=== PATIENT | male | born 1985 | race Two or more races ===

== ENCOUNTER 2020-01-15 07:38 | Day surgery (SDC) | payer BC ==
[~2020-01-15 07:38] MED LIST: Lactated Ringers 1,000 ML IV SCH; Sodium Chloride 0.9% 10 ML Syringe FLUSH PRN
[2020-01-15] MEDS ORDERED: Midazolam 1 MG/ML 2 ML SDV IV ONE (07:39)
[2020-01-15] MEDS ORDERED: Propofol 200 MG/20 ML SDV IV ONE (07:39)
--- NOTE | 2020-01-15 09:21 | PCM.OPNOTE ---
- General Post-Op/Procedure Note Date of Surgery/Procedure: 01/15/20 Operative Procedure(s): c scope with biopsy Findings: diverticuli of ascending colon normal terminal ileum and colon Pre Op Diagnosis: diarrhea. unexplained weight loss Post-Op Diagnosis: diverticuli of ascending colon. normal terminal ileum and colon Anesthesia Technique: MAC Primary Surgeon: Teofilo Brannon Anesthesia Provider: Angela Kothari Pathology: random biopsies colon, ileum Complications: None Condition: Good Free Text/Narrative:: see dictation
--- NOTE | 2020-01-15 14:48 | OR ---
DATE OF OPERATION: 01/15/2020 SURGEON: Teofilo Brannon MD PROCEDURE PERFORMED: Colonoscopy with cold forceps biopsy. PREOPERATIVE DIAGNOSES: History of diabetes, as well as diarrhea with unexplained weight loss. POSTOPERATIVE DIAGNOSES: Diverticula of the ascending colon and normal- appearing terminal ileum and colonic mucosa. INDICATIONS FOR PROCEDURE: This is a 34-year-old male who presented with the above-mentioned complaints. He was offered and accepted a colonoscopy as part of his workup. DESCRIPTION OF PROCEDURE: After an excellent IV sedation was administered, digital rectal exam was performed. No marked abnormality was noted. Flexible colonoscope was inserted and advanced without difficulty to the cecum. The prep was excellent. The terminal ileum was then intubated. Scope was advanced approximately 10 cm. Following findings were noted. The terminal ileum grossly unremarkable, random biopsies were taken. The ascending colon, unremarkable, except for 2 diverticula, photo and random biopsies were taken. Transverse colon, unremarkable, random biopsies were taken. Descending colon, unremarkable, random biopsies were taken. Sigmoid and rectum, unremarkable, random biopsies were taken. The patient tolerated the procedure well, was taken to recovery room in good condition. We will be sending the patient results by letter. /[id number] /MODL
== END 2020-01-15 10:10 | disposition home or self-care (01) ==
LOC: FB.SDS 07:38
PROVIDERS: ATTEND Surgery
DX: K57.30 Diverticulosis of large intestine without perforation or abscess without bleeding (principal); D64.9 Anemia, unspecified; R19.7 Diarrhea, unspecified; R63.4 Abnormal weight loss; I10 Essential (primary) hypertension; E11.9 Type 2 diabetes mellitus without complications; F17.210 Nicotine dependence, cigarettes, uncomplicated; Z11.59 Encounter for screening for other viral diseases; Z79.4 Long term (current) use of insulin; Z79.899 Other long term (current) drug therapy; Z68.22 Body mass index [BMI] 22.0-22.9, adult
CPT/HCPCS: 45380; 88305; J2250; J2704; J7120; 82962

== ENCOUNTER 2020-07-28 12:49 | Emergency (ER) | payer BC ==
[2020-07-28] MEDS ORDERED: Sodium Chloride 0.9% 10 ML Syringe FLUSH PRN (13:02)
[2020-07-28] MEDS ORDERED: Insulin Regular, Human 100 Units/ML 3 ML Vial SUBCUT STA (13:05)
[2020-07-28] MEDS ORDERED: Sodium Chloride 0.9% 2,000 ML IV SCH (13:15)
[2020-07-28 13:47] LABS: BASE EXCESS VENOUS,POC 1 mmol/L (-2-3); HCO3 VENOUS,POC 24 mmol/L (21-29); PCO2 VENOUS,POC 34 mmHg (41-51); PH VENOUS,POC 7.47 pH Units (7.32-7.43)
[2020-07-28] MEDS ORDERED: Ondansetron 4 MG/2 ML SDV IVPUSH ONE (13:47)
[2020-07-28] MEDS ORDERED: Albuterol/Ipratropium 3.0-0.5 MG/3 ML Neb Soln NEB ONE (14:17)
--- NOTE | 2020-07-28 14:17 | EDM.PDOC ---
ED HPI GENERAL MEDICAL PROBLEM - General Chief Complaint: General Stated Complaint: COVID SYMPTOMS Time Seen by Provider: 07/28/20 12:55 Source of Information: Reports: Patient History Limitations: Reports: No Limitations - History of Present Illness INITIAL COMMENTS - FREE TEXT/NARRATIVE: Patient presented to the ED because of weakness, dizziness, dyspnea for 4 days. There is N/V/D x2. Denies having any fever but he has chills. He was tested in the clinic and was Covid-negative. - Related Data Allergies Allergy/AdvReac Type Severity Reaction Status Date / Time No Known Allergies Allergy Verified 07/28/20 15:29 Home Meds: Home Meds Amitriptyline [Elavil] 50 mg PO BEDTIME 01/14/20 [History] metFORMIN [Glucophage] 1,000 mg PO BIDMEALS 01/14/20 [History] Ondansetron [Zofran ODT] 4 mg PO Q4H PRN #5 tab.dis 07/28/20 [Rx] Potassium Chloride [Klor-Con M20] 40 meq PO Q2H #6 tab.er 07/28/20 [Rx] Past Medical History HEENT History: Reports: None Cardiovascular History: Reports: High Cholesterol, Hypertension Respiratory History: Reports: Asthma Gastrointestinal History: Reports: None Genitourinary History: Reports: None 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 Musculoskeletal History: Reports: None Neurological History: Reports: None Psychiatric History: Reports: None Endocrine/Metabolic History: Reports: Diabetes, Type II Hematologic History: Reports: None Immunologic History: Reports: None Oncologic (Cancer) History: Reports: None Dermatologic History: Reports: None - Past Surgical History Head Surgeries/Procedures: Reports: None HEENT Surgical History: Reports: None Cardiovascular Surgical History: Reports: None Respiratory Surgical History: Reports: None GI Surgical History: Reports: None Female Surgical History: Reports: None Social & Family History - Caffeine Use Caffeine Use: Reports: Coffee, Soda, Tea ED ROS GENERAL - Review of Systems Review Of Systems: See Below Constitutional: Reports: No Symptoms HEENT: Reports: No Symptoms Respiratory: Reports: Shortness of Breath, Wheezing Cardiovascular: Reports: No Symptoms Endocrine: Reports: No Symptoms GI/Abdominal: Reports: Diarrhea, Nausea, Vomiting : Reports: No Symptoms Skin: Reports: No Symptoms Neurological: Reports: Dizziness Psychiatric: Reports: No Symptoms ED EXAM, GENERAL - Physical Exam Exam: See Below Exam Limited By: No Limitations General Appearance: Alert, No Apparent Distress Eye Exam: Bilateral Eye: PERRL Ears: Normal External Exam, Normal Canal Nose: Normal Inspection, Normal Mucosa, No Blood Throat/Mouth: Normal Inspection, Normal Lips, Normal Teeth Head: Atraumatic, Normocephalic Neck: Normal Inspection, Supple, Non-Tender, Full Range of Motion Respiratory/Chest: No Respiratory Distress, Wheezing Cardiovascular: Normal Peripheral Pulses, Regular Rate, Rhythm, No Edema GI/Abdominal: Normal Bowel Sounds, Soft, Non-Tender Back Exam: Normal Inspection, Full Range of Motion Course - Vital Signs Text/Narrative:: Labs/CXR was discussed with patient NS 1 L bolus X 2 Zofran 4 mg IV Humulin 20 U SC Klor con 40 meq po x1 Last Recorded V/S: Last Vital Signs Temp 36.5 C 07/28/20 12:49 Pulse 95 07/28/20 14:39 Resp 16 07/28/20 14:39 BP 96/61 07/28/20 14:39 Pulse Ox 100 07/28/20 14:39 - Orders/Labs/Meds Orders: Active Orders 24 hr Category Date Time Status Saline Lock Insert [OM.PC] Routine Oth 07/28/20 13:02 Ordered EKG 12 Lead [EK] Routine Ther 07/28/20 13:02 Ordered Labs: Laboratory Tests 07/28/20 07/28/20 07/28/20 Range/Units 13:20 13:20 13:20 WBC 10.7 H (3.2-10.1) x10-3/uL RBC 4.79 (3.90-5.90) x10(6)uL Hgb 14.8 (12.9-17.7) g/dL Hct 43.5 (38.3-50.1) % MCV 90.9 (80.8-98.7) fL MCH 30.9 (27.0-33.3) pg MCHC 34.0 (28.7-35.3) g/dL RDW 12.5 (12.4-15.0) % Plt Count 340 (117-477) x10(3)uL MPV 8.1 (6.7-11.0) fL Neut % (Auto) 69.6 (40.3-71.8) % Lymph % (Auto) 25.0 (15.8-45.3) % Haakon % (Auto) 4.1 L (5.5-15.2) % Eos % (Auto) 0.6 (0.1-6.8) % Baso % (Auto) 0.7 (0.3-3.8) % Neut # (Auto) 7.4 H (1.7-6.9) x10-3/uL Lymph # (Auto) 2.7 (0.5-4.5) x10-3/uL Haakon # (Auto) 0.4 (0.0-1.2) x10-3/uL Eos # (Auto) 0.1 (0.0-0.6) x10-3/uL Baso # (Auto) 0.1 (0.0-0.3) x10-3/uL POC VBG pH (7.32-7.43) pH Units POC VBG pCO2 (41-51) mmHg POC VBG HCO3 (21-29) mmol/L VBG Base Excess (-2-3) mmol/L O2 Delivery Device Sodium 129 L (135-145) mmol/L Potassium 3.1 L (3.5-5.3) mmol/L Chloride 88 L* (100-110) mmol/L Carbon Dioxide 27 (21-32) mmol/L BUN 9 (7-18) mg/dL Creatinine 1.1 (0.70-1.30) mg/dL Est Cr Clr Drug Dosing 90.46 mL/min Estimated GFR (MDRD) > 60 (>60) BUN/Creatinine Ratio 8.2 L (9-20) Glucose 551 H* (80-116) mg/dL POC Glucose (74-100) mg/dL Lactic Acid (0.4-2.0) mmol/L Calcium 9.0 (8.6-10.2) mg/dL Total Bilirubin 0.7 (0.1-1.3) mg/dL AST 12 (5-25) IU/L ALT 20 (12-36) U/L Alkaline Phosphatase 104 (56-112) IU/L Troponin I 4.3 (4.0-60.3) pg/mL Total Protein 7.9 (6.0-8.0) g/dL Albumin 3.6 (3.5-5.2) g/dL Globulin 4.3 g/dL Albumin/Globulin Ratio 0.8 Urine Color (YELLOW) Urine Appearance (CLEAR) Urine pH (5.0-6.5) Ur Specific [place] (1.010-1.025) Urine Protein (NEGATIVE) mg/dL Urine Glucose (UA) (NORMAL) mg/dL Urine Ketones (NEGATIVE) mg/dL Urine Occult Blood (NEGATIVE) Urine Nitrite (NEGATIVE) Urine Bilirubin (NEGATIVE) Urine Urobilinogen (NEGATIVE) mg/dL Ur Leukocyte Esterase (NEGATIVE) Urine RBC (0-5) Urine WBC (0-5) Ur Squamous Epith Cells (NS,R,O) Urine Bacteria (NS) 07/28/20 07/28/20 07/28/20 Range/Units 13:20 13:20 13:30 WBC (3.2-10.1) x10-3/uL RBC (3.90-5.90) x10(6)uL Hgb (12.9-17.7) g/dL Hct (38.3-50.1) % MCV (80.8-98.7) fL MCH (27.0-33.3) pg MCHC (28.7-35.3) g/dL RDW (12.4-15.0) % Plt Count (117-477) x10(3)uL MPV (6.7-11.0) fL Neut % (Auto) (40.3-71.8) % Lymph % (Auto) (15.8-45.3) % Haakon % (Auto) (5.5-15.2) % Eos % (Auto) (0.1-6.8) % Baso % (Auto) (0.3-3.8) % Neut # (Auto) (1.7-6.9) x10-3/uL Lymph # (Auto) (0.5-4.5) x10-3/uL Haakon # (Auto) (0.0-1.2) x10-3/uL Eos # (Auto) (0.0-0.6) x10-3/uL Baso # (Auto) (0.0-0.3) x10-3/uL POC VBG pH 7.47 H (7.32-7.43) pH Units POC VBG pCO2 34 L (41-51) mmHg POC VBG HCO3 24 (21-29) mmol/L VBG Base Excess 1 (-2-3) mmol/L O2 Delivery Device Room air Sodium (135-145) mmol/L Potassium (3.5-5.3) mmol/L Chloride (100-110) mmol/L Carbon Dioxide (21-32) mmol/L BUN (7-18) mg/dL Creatinine (0.70-1.30) mg/dL Est Cr Clr Drug Dosing mL/min Estimated GFR (MDRD) (>60) BUN/Creatinine Ratio (9-20) Glucose (80-116) mg/dL POC Glucose (74-100) mg/dL Lactic Acid 1.8 (0.4-2.0) mmol/L Calcium (8.6-10.2) mg/dL Total Bilirubin (0.1-1.3) mg/dL AST (5-25) IU/L ALT (12-36) U/L Alkaline Phosphatase (56-112) IU/L Troponin I (4.0-60.3) pg/mL Total Protein (6.0-8.0) g/dL Albumin (3.5-5.2) g/dL Globulin g/dL Albumin/Globulin Ratio Urine Color Yellow (YELLOW) Urine Appearance Clear (CLEAR) Urine pH 5.0 (5.0-6.5) Ur Specific [place] 1.005 L (1.010-1.025) Urine Protein Negative (NEGATIVE) mg/dL Urine Glucose (UA) >1000 H (NORMAL) mg/dL Urine Ketones 15 H (NEGATIVE) mg/dL Urine Occult Blood Negative (NEGATIVE) Urine Nitrite Negative (NEGATIVE) Urine Bilirubin Negative (NEGATIVE) Urine Urobilinogen Normal (NEGATIVE) mg/dL Ur Leukocyte Esterase Negative (NEGATIVE) Urine RBC 0-5 (0-5) Urine WBC 0-5 (0-5) Ur Squamous Epith Cells Moderate H (NS,R,O) Urine Bacteria Few H (NS) 07/28/20 Range/Units 16:10 WBC (3.2-10.1) x10-3/uL RBC (3.90-5.90) x10(6)uL Hgb (12.9-17.7) g/dL Hct (38.3-50.1) % MCV (80.8-98.7) fL MCH (27.0-33.3) pg MCHC (28.7-35.3) g/dL RDW (12.4-15.0) % Plt Count (117-477) x10(3)uL MPV (6.7-11.0) fL Neut % (Auto) (40.3-71.8) % Lymph % (Auto) (15.8-45.3) % Haakon % (Auto) (5.5-15.2) % Eos % (Auto) (0.1-6.8) % Baso % (Auto) (0.3-3.8) % Neut # (Auto) (1.7-6.9) x10-3/uL Lymph # (Auto) (0.5-4.5) x10-3/uL Haakon # (Auto) (0.0-1.2) x10-3/uL Eos # (Auto) (0.0-0.6) x10-3/uL Baso # (Auto) (0.0-0.3) x10-3/uL POC VBG pH (7.32-7.43) pH Units POC VBG pCO2 (41-51) mmHg POC VBG HCO3 (21-29) mmol/L VBG Base Excess (-2-3) mmol/L O2 Delivery Device Sodium (135-145) mmol/L Potassium (3.5-5.3) mmol/L Chloride (100-110) mmol/L Carbon Dioxide (21-32) mmol/L BUN (7-18) mg/dL Creatinine (0.70-1.30) mg/dL Est Cr Clr Drug Dosing mL/min Estimated GFR (MDRD) (>60) BUN/Creatinine Ratio (9-20) Glucose (80-116) mg/dL POC Glucose 272 H (74-100) mg/dL Lactic Acid (0.4-2.0) mmol/L Calcium (8.6-10.2) mg/dL Total Bilirubin (0.1-1.3) mg/dL AST (5-25) IU/L ALT (12-36) U/L Alkaline Phosphatase (56-112) IU/L Troponin I (4.0-60.3) pg/mL Total Protein (6.0-8.0) g/dL Albumin (3.5-5.2) g/dL Globulin g/dL Albumin/Globulin Ratio Urine Color (YELLOW) Urine Appearance (CLEAR) Urine pH (5.0-6.5) Ur Specific [place] (1.010-1.025) Urine Protein (NEGATIVE) mg/dL Urine Glucose (UA) (NORMAL) mg/dL Urine Ketones (NEGATIVE) mg/dL Urine Occult Blood (NEGATIVE) Urine Nitrite (NEGATIVE) Urine Bilirubin (NEGATIVE) Urine Urobilinogen (NEGATIVE) mg/dL Ur Leukocyte Esterase (NEGATIVE) Urine RBC (0-5) Urine WBC (0-5) Ur Squamous Epith Cells (NS,R,O) Urine Bacteria (NS) Meds: Medications Discontinued Medications Generic Name Dose Route Start Last Admin Trade Name Freq PRN Reason Stop Dose Admin Albuterol/Ipratropium 3 ml 07/28/20 14:17 07/28/20 14:29 Duoneb 3.0-0.5 Mg/3 Ml NEB 07/28/20 14:18 3 ml ONETIME ONE Administration Sodium Chloride 2,000 mls @ 999 mls/hr 07/28/20 13:15 07/28/20 13:37 Normal Saline IV 999 mls/hr ASDIRECTED KAMRAN Administration Insulin Human Regular 20 unit 07/28/20 13:05 07/28/20 14:07 Humulin R SUBCUT 07/28/20 13:06 20 units NOW STA Administration Ondansetron HCl 4 mg 07/28/20 13:47 07/28/20 14:11 Zofran IVPUSH 07/28/20 13:48 4 mg ONETIME ONE Administration Potassium Chloride 40 meq 07/28/20 16:24 07/28/20 17:07 Klor-Con M20 PO 07/28/20 16:25 40 meq ONETIME ONE Administration Sodium Chloride 10 ml 07/28/20 13:02 Saline Flush FLUSH ASDIRECTED PRN Keep Vein Open Departure - Departure Time of Disposition: 17:00 Disposition: Home, Self-Care 01 Condition: Good Clinical Impression: Hypokalemia - Discharge Information Prescriptions: Potassium Chloride [Klor-Con M20] 40 meq PO Q2H #6 tab.er Ondansetron [Zofran ODT] 4 mg PO Q4H PRN #5 tab.dis PRN Reason: Nausea Instructions: Viral Gastroenteritis, Adult, Hyperglycemia Referrals: Yennifer Marino ASSEMBLED WO[employer]ODU[employer] REPAIRER [Primary Care Provider] - Forms: ED Department Discharge Additional Instructions: Please read discharge instructions on hypokalemia(low potassium), gastroenteritis(stomach flu) and high blood sugar Increase oral fluids Frequent hand washing You can take imodium 2 tablets every 6 hours as needed for diarrhea (imodium is over the counter) Zofran ODT 4 mg every 4 hours as needed for nausea Follow up as needed - My Orders Last 24 Hours: My Active Orders 07/28/20 13:02 Saline Lock Insert [OM.PC] Routine EKG 12 Lead [EK] Routine - Assessment/Plan Last 24 Hours: My Active Orders 07/28/20 13:02 Saline Lock Insert [OM.PC] Routine EKG 12 Lead [EK] Routine
--- NOTE | 2020-07-28 15:10 | CR ---
INDICATION: Cough. CHEST ONE VIEW: AP portable AP view of the chest, 07/28/2020 was compared with 10/07/2016 and revealed pulmonary markings similar to the previous examination without a definite active infiltrate or effusion. The heart, mediastinum and bony thorax are unremarkable. IMPRESSION: Stable chest-no acute process. MTDD
[2020-07-28] MEDS ORDERED: Potassium Chloride 20 MEQ Tab.ER PO ONE (16:24)
== END 2020-07-28 17:25 | disposition home or self-care (01) ==
LOC: FB.ED 12:49
DX: E87.6 Hypokalemia (principal); I10 Essential (primary) hypertension; E11.9 Type 2 diabetes mellitus without complications; J45.909 Unspecified asthma, uncomplicated; Z79.84 Long term (current) use of oral hypoglycemic drugs; Z79.899 Other long term (current) drug therapy
CPT/HCPCS: 36415; 71045; 80053; 81001; 82962; 83605; 84484; 85025; 93005; 94640; 96374; 99284; 99285-25; A9270-GY; J1815-GY; J2405; J7030; J7620-GY

== ENCOUNTER 2021-02-16 18:07 | Inpatient (IN) | payer MEDICAID ==
[2021-02-16] MEDS ORDERED: Promethazine 25 MG Tab PO PRN (18:36)
[2021-02-16] MEDS ORDERED: Ondansetron 4 MG/2 ML SDV IV PRN (18:36)
[2021-02-16] MEDS ORDERED: 50% Dextrose in Water 50 ML Syringe IVPUSH PRN ×3 (18:45→21:36)
[2021-02-16] MEDS ORDERED: Glucagon,Human Recombinant 1 MG Vial IM PRN ×3 (18:45→21:36)
[2021-02-16] MEDS: NS + KCl 20mEq/L 1,000 ML IV SCH (19:13)
[2021-02-16] MEDS: Sodium Chloride 0.9% 10 ML Syringe FLUSH PRN ×2 (19:16→20:20)
[2021-02-16 19:32] LABS: HCO3 VENOUS,POC 26 mmol/L (21-29); PCO2 VENOUS,POC 28 mmHg (41-51); PH VENOUS,POC 7.58 pH Units (7.32-7.43)
[2021-02-16 19:33] LABS: BASE EXCESS VENOUS,POC 5 mmol/L (-2-3)
--- NOTE | 2021-02-16 19:34 | PCM.HP.2 ---
H&P History of Present Illness - General Date of Service: 02/16/21 Admit Problem/Dx: Admission Diagnosis/Problem Admission Diagnosis/Problem Hyperglycemia Source of Information: Patient, Family, Provider - History of Present Illness Initial Comments - Free Text/Narative: Mookie presented for direct admission for hyperglycemia, blood sugar of 915 at [facility]. He had a syncopal episode on 02/04, had set his alarm to get up at 8am, went and got water and passed out and when he woke up asked [employer] what time it was 840am. He did not go to get evaluated at that time. He states that he has no appetite, when he forces himself to eat then he vomits. Has chronic diarrhea, had colonoscopy 12/2019 but normal. He has not taken his Metformin for a long time. HgbA1c at clinic has been >14 since 04/2020. He had normal kidney function prior to today, Cr in clinic was 2.36, Na 121, corrected for blood sugars was 124, CO2 was normal. They were not able to get UA. Blood pressure in clinic was 98/58, Temp 96.8F, he has lost about 40 lbs since last year unintentional. History of urinary retention with overactive bladder, saw Dr Davis, was straight catheterizing at home but then started being able to urinate on his own about a month ago. He has had multiple no shows with Dr Davis. He also reports he has been having more overflow incontinence in the past month. He smokes 1 ppd of cigarettes. No history of surgeries. He states he drinks about a gallon of water a day. - Related Data Allergies/Adverse Reactions: Allergies Allergy/AdvReac Type Severity Reaction Status Date / Time No Known Allergies Allergy Verified 02/16/21 18:46 Home Medications: Home Meds Amitriptyline [Elavil] 50 mg PO BEDTIME 01/14/20 [History] metFORMIN [Glucophage] 1,000 mg PO BIDMEALS 01/14/20 [History] Ondansetron [Zofran ODT] 4 mg PO Q4H PRN #5 tab.dis 07/28/20 [Rx] Potassium Chloride [Klor-Con M20] 40 meq PO Q2H #6 tab.er 07/28/20 [Rx] Citalopram [Citalopram HBr] 20 mg PO DAILY 02/16/21 [History] Insulin Glarg,Human.Rec.Analog [Lantus Solostar] 40 unit SUBCUT BEDTIME 02/16/21 [History] Insulin Lispro [HumaLOG] 5 unit SUBCUT TID 02/16/21 [History] Past Medical History HEENT History: Reports: Impaired Vision, Other (See Below) Other HEENT History: Regular astigmatism OU. Hyperopia OU. Cardiovascular History: Reports: High Cholesterol, Hypertension Respiratory History: Reports: Asthma Gastrointestinal History: Reports: None Genitourinary History: Reports: None, Retention, Urinary, Other (See Below) Other Genitourinary History: Uses straight catheter per self - in the ER 07/28/2020. Bilateral hydronephrosis. KHAI. 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 Musculoskeletal History: Reports: None Neurological History: Reports: None Psychiatric History: Reports: None Endocrine/Metabolic History: Reports: Diabetes, Type II Hematologic History: Reports: None Immunologic History: Reports: None Oncologic (Cancer) History: Reports: None Dermatologic History: Reports: None - Past Surgical History Head Surgeries/Procedures: Reports: None HEENT Surgical History: Reports: None Cardiovascular Surgical History: Reports: None Respiratory Surgical History: Reports: None GI Surgical History: Reports: None Social & Family History - Family History Family Medical History: No Pertinent Family History - Tobacco Use Tobacco Use Status *Q: Heavy Tobacco User Years of Tobacco use: 21 Packs/Tins Daily: 2 Used Tobacco, but Quit: No Second Hand Smoke Exposure: No - Caffeine Use Caffeine Use: Reports: Coffee, Soda - Recreational Drug Use Recreational Drug Use: Yes Recreational Drug Type: Reports: Marijuana/Hashish Recreational Drug Use Frequency: Daily H&P Review of Systems - Review of Systems: Review Of Systems: See Below General: Reports: Decreased Appetite, Weight Loss. Denies: Fever, Chills, Weakness HEENT: Reports: Visual Changes (blurred vision). Denies: Eye Pain, Rhinitis, Sinus Congestion, Sore Throat Pulmonary: Reports: No Symptoms Cardiovascular: Reports: No Symptoms Gastrointestinal: Reports: Anorexia, Diarrhea, Decreased Appetite, Vomiting. Denies: Abdominal Pain, Black Stool, Bloody Stool, Constipation, Nausea Genitourinary: Reports: Incontinence, Retention. Denies: Dysuria, Frequency, Pain Musculoskeletal: Reports: No Symptoms Skin: Reports: No Symptoms Psychiatric: Reports: No Symptoms Neurological: Reports: No Symptoms Hematologic/Lymphatic: Reports: No Symptoms Immunologic: Reports: No Symptoms Exam - Exam Exam: See Below - Vital Signs Vital Signs: Last Vital Signs Temp 99.8 F 02/16/21 18:15 Pulse 117 H 02/16/21 18:15 Resp 19 02/16/21 18:15 BP 103/67 02/16/21 18:15 Pulse Ox 99 02/16/21 18:15 Weight: 141 lb - Exam General: Alert, Oriented, Cooperative HEENT: PERRLA, Conjunctiva Clear, EOMI, Hearing Intact, Posterior Pharynx Clear. No: Mucosa Moist & Hyden Neck: Supple, Trachea Midline. No: Lymphadenopathy Lungs: Clear to Auscultation, Normal Respiratory Effort Cardiovascular: Regular Rate, Regular Rhythm GI/Abdominal Exam: Normal Bowel Sounds, Soft, Non-Tender, No Distention (Male) Exam: Deferred Rectal (Males) Exam: Deferred Back Exam: CVA Tenderness (R), CVA Tenderness (L) Extremities: No Pedal Edema Peripheral Pulses: 2+: Radial (L), Radial (R) Skin: Warm, Dry, Intact Neurological: Cranial Nerves Intact, Normal Speech, Normal Tone - Patient Data Lab Results Last 24 hrs: Laboratory Results - last 24 hr 02/16/21 Range/Units 18:55 POC Glucose > 600 H* (80-116) mg/dL Result Diagrams: 02/16/21 19:00 02/16/21 19:00 Sepsis Event Note - Focused Exam Vital Signs: Vital Signs Temp Pulse Resp BP Pulse Ox 02/16/21 18:15 99.8 F 117 H 19 103/67 99 *Q Meaningful Use (ADM) - VTE Risk Assess *Q Each Risk Factor Represents 1 Point: None Total Score 1 Point Risk Factors: 0 Each Risk Factor Represents 2 Points: None Total Score 2 Point Risk Factors: 0 Each Risk Factor Represents 3 Points: None Total Score 3 Point Risk Factors: 0 Each Risk Factor Represents 5 Points: None Total Score 5 Point Risk Factors: 0 Venous Thromboembolism Risk Factor Score *Q: 0 - Problem List (1) Hyperglycemia due to diabetes mellitus SNOMED Code(s): 743343225, 996011537 ICD Code: E11.65 - TYPE 2 DIABETES MELLITUS WITH HYPERGLYCEMIA Status: Acute Current Visit: Yes (2) Acute kidney failure SNOMED Code(s): 88245331 ICD Code: N17.9 - ACUTE KIDNEY FAILURE, UNSPECIFIED Status: Acute Current Visit: Yes (3) UTI (urinary tract infection) SNOMED Code(s): 93558062 ICD Code: N39.0 - URINARY TRACT INFECTION, SITE NOT SPECIFIED Status: Acute Current Visit: Yes Qualifiers: Urinary tract infection type: acute cystitis Hematuria presence: with hematuria Qualified Code(s): N30.01 - Acute cystitis with hematuria (4) Diarrhea SNOMED Code(s): 85573667 ICD Code: R19.7 - DIARRHEA, UNSPECIFIED Status: Acute Current Visit: No (5) Urinary retention SNOMED Code(s): 517827030 ICD Code: R33.9 - RETENTION OF URINE, UNSPECIFIED Status: Chronic Current Visit: Yes (6) Overflow incontinence of urine SNOMED Code(s): 941655900 ICD Code: N39.490 - OVERFLOW INCONTINENCE Status: Acute Current Visit: Yes Problem List Initiated/Reviewed/Updated: Yes Orders Last 24hrs: Active Orders 24 hr Category Date Time Status Patient Status [ADT] Routine ADT 02/16/21 18:41 Ordered Ambulate [RC] PER UNIT ROUTINE Care 02/16/21 18:43 Ordered Blood Glucose Check, Bedside [RC] Q2HR Care 02/16/21 18:44 Ordered Oxygen Therapy [RC] PRN Care 02/16/21 18:41 Ordered Up ad Grace [RC] ASDIRECTED Care 02/16/21 18:36 Ordered VTE/DVT Education [RC] Per Unit Routine Care 02/16/21 18:41 Ordered Vital Signs [RC] Q4H Care 02/16/21 18:41 Ordered Clear Liquid Diet [DIET] Diet 02/16/21 Dinner Ordered BASIC METABOLIC PANEL,BMP [CHEM] Routine Lab 02/16/21 19:00 Received BASIC METABOLIC PANEL,BMP [CHEM] Routine Lab 02/17/21 06:00 Ordered BLOOD GAS VENOUS [BG] Routine Lab 02/16/21 19:10 Stop Req BLOOD GAS VENOUS,POC [POC] Routine Lab 02/16/21 19:00 Received CBC WITH AUTO DIFF [HEME] Routine Lab 02/16/21 18:36 Ordered CORONAVIRUS COVID-19 SHARDA [MOLEC] Routine Lab 02/16/21 19:12 Ordered UA W/MICROSCOPIC [URIN] Routine Lab 02/16/21 18:36 Ordered Amitriptyline [Elavil] Med 02/16/21 21:00 Ordered 50 mg PO BEDTIME Citalopram [Celexa] Med 02/17/21 09:00 Ordered 20 mg PO DAILY Dextrose 50% in Water Med 02/16/21 18:45 Ordered 50 ml IVPUSH ASDIRECTED PRN Glucagon,Human Recombinant [GlucaGen] Med 02/16/21 18:45 Ordered 1 mg IM ASDIRECTED PRN Insulin Lispro [HumaLOG] Med 02/16/21 18:45 Ordered See Protocol SUBCUT Q2H PRN Ondansetron [Zofran] Med 02/16/21 18:36 Ordered 4 mg IV Q4H PRN Promethazine [Phenergan] Med 02/16/21 18:36 Ordered 25 mg PO Q6H PRN Sodium Chloride 0.9% [Saline Flush] Med 02/16/21 18:36 Ordered 10 ml FLUSH ASDIRECTED PRN Sodium Chloride 0.9% with KCl 20 mEq @ 150 mL/Hr (1000 Med 02/16/21 18:45 Ordered mL) NS + KCl 20mEq/L [Normal Saline with 20 mEq KCl] 1,000 ml IV ASDIRECTED Peripheral IV Insertion Adult [OM.PC] Routine Oth 02/16/21 18:36 Ordered Resuscitation Status Routine Resus Stat 02/16/21 18:36 Ordered Medication Orders Amitriptyline HCl (Amitriptyline 50 Mg Tab) 50 mg PO BEDTIME KAMRAN Citalopram Hydrobromide (Citalopram 20 Mg Tab) 20 mg PO DAILY KAMRAN Dextrose/Water (50% Dextrose In Water 50 Ml Syringe) 50 ml IVPUSH ASDIRECTED PRN PRN Reason: Hypoglycemia Glucagon (Glucagon,Human Recombinant 1 Mg Vial) 1 mg IM ASDIRECTED PRN PRN Reason: Hypoglycemia Potassium Chloride/Sodium Chloride (Normal Saline With 20 Meq Kcl) 1,000 mls @ 150 mls/hr IV ASDIRECTED KAMRAN Last Admin: 02/16/21 19:13 Dose: 150 mls/hr Documented by: BOSHCAT Insulin Human Lispro (Insulin Lispro 100 Unit/Ml 3 Ml Kwikpen) 0 unit SUBCUT Q2H PRN; Protocol PRN Reason: Hyperglycemia Ondansetron HCl (Ondansetron 4 Mg/2 Ml Sdv) 4 mg IV Q4H PRN PRN Reason: Nausea/Vomiting Promethazine HCl (Promethazine 25 Mg Tab) 25 mg PO Q6H PRN PRN Reason: nausea, able to take PO Sodium Chloride (Sodium Chloride 0.9% 10 Ml Syringe) 10 ml FLUSH ASDIRECTED PRN PRN Reason: Keep Vein Open Last Admin: 02/16/21 19:16 Dose: 10 ml Documented by: CARMENZA Assessment/Plan Comment:: 1. Direct admission for hyperglycemia/DM, acute kidney failure, UTI. 2. Hyperglycemia/uncontrolled DM: AccuChecks q2h, Humalog sliding scale. Recheck labs in am. Clear liquid diet. NS with KCL 20mEQ at 150 ml/hr. Bicarbonate on VBG 26, serum CO2 29, no ketones in urine. No ketoacidosis. 3. UTI: Rocephin 1 g IV q24h, WBC 14.5. UA positive blood, WBC, moderate LE. 4. AKF: Cr 2.4, NS with KCL 20 meQ at 150 ml/hr. Repeat BMP in am. 5. Diet: clear liquids, advance as tolerated. 6. DVT prophylaxis: ambulate. 7. CODE STATUS: FULL. 8. Discharge planning: anticipate 24-48 hours, adjust treatments as necessary. - Mortality Measure Prognosis:: Good
[2021-02-16] MEDS ORDERED: Insulin Lispro 100 Unit/ML 3 ML KwikPen SUBCUT STA (19:47)
[2021-02-16] MEDS ORDERED: Insulin Lispro 100 Unit/ML 3 ML KwikPen SUBCUT ONE ×3 (19:52→21:45)
[2021-02-16] MEDS: cefTRIAXone 1 GM Vial IVPUSH SCH (20:17)
[2021-02-16] MEDS ORDERED: Amitriptyline 25 MG Tab PO SCH (21:00)
[2021-02-16] MEDS: Insulin Lispro 100 Unit/ML 3 ML KwikPen SUBCUT PRN (23:05)
[2021-02-17] MEDS: NS + KCl 20mEq/L 1,000 ML IV SCH ×4 (01:36→22:10)
[2021-02-17] MEDS: Insulin Lispro 100 Unit/ML 3 ML KwikPen SUBCUT PRN ×5 (06:53→22:55)
--- NOTE | 2021-02-17 08:13 | PCM.PN ---
- General Info Date of Service: 02/17/21 Subjective Update: Mookie states he is feeling better, no vomiting since admission. He tolerated clear liquids and some yogurt overnight. Has diarrhea, had colonoscopy in December 2019 but does not believe his stool has been tested for infections. No history of STIs. Had some urine incontinence overnight but did not require catheterization though. Colonoscopy in December 2019 showed diverticula, took biopsies but don't see those reports. No recent history of antibiotic use, last antibiotics in his claim history are from Fall 2019. Metformin can also cause diarrhea & nausea but he states he has not been taking it for a year, claim history supports this. He has been refilling his Celexa & Amitriptyline on monthly basis but Lantus last filled in Sep 2020. - Patient Data Vitals - Most Recent: Last Vital Signs Temp 99 F 02/17/21 04:00 Pulse 108 H 02/17/21 04:00 Resp 18 02/17/21 04:00 BP 99/53 L 02/17/21 04:00 Pulse Ox 99 02/17/21 04:00 Weight - Most Recent: 141 lb I&O - Last 24 Hours: Intake & Output 02/16/21 02/17/21 02/17/21 22:59 06:59 14:59 Intake Total 1645 Balance 1645 Lab Results Last 24 Hours: Laboratory Results - last 24 hr 02/16/21 02/16/21 02/16/21 Range/Units 18:20 18:55 19:00 WBC 14.5 H (3.2-10.1) x10-3/uL RBC 3.60 L (3.90-5.90) x10(6)uL Hgb 11.1 L D (12.9-17.7) g/dL Hct 32.7 L D (38.3-50.1) % MCV 91.0 (80.8-98.7) fL MCH 30.7 (27.0-33.3) pg MCHC 33.8 (28.7-35.3) g/dL RDW 12.8 (12.4-15.0) % Plt Count 442 (117-477) x10(3)uL MPV 7.9 (6.7-11.0) fL Neut % (Auto) 80.9 H (40.3-71.8) % Lymph % (Auto) 13.7 L (15.8-45.3) % [place] % (Auto) 4.2 L (5.5-15.2) % Eos % (Auto) 0.8 (0.1-6.8) % Baso % (Auto) 0.4 (0.3-3.8) % Neut # (Auto) 11.7 H (1.7-6.9) x10-3/uL Lymph # (Auto) 2.0 (0.5-4.5) x10-3/uL [place] # (Auto) 0.6 (0.0-1.2) x10-3/uL Eos # (Auto) 0.1 (0.0-0.6) x10-3/uL Baso # (Auto) 0.1 (0.0-0.3) x10-3/uL Add Manual Diff Neutrophils % (Manual) (46-82) % Lymphocytes % (Manual) (13-37) % Monocytes % (Manual) (4-12) % POC VBG pH (7.32-7.43) pH Units POC VBG pCO2 (41-51) mmHg POC VBG HCO3 (21-29) mmol/L VBG Base Excess (-2-3) mmol/L O2 Delivery Device Sodium (135-145) mmol/L Potassium (3.5-5.3) mmol/L Chloride (100-110) mmol/L Carbon Dioxide (21-32) mmol/L BUN (7-18) mg/dL Creatinine (0.70-1.30) mg/dL Est Cr Clr Drug Dosing mL/min Estimated GFR (MDRD) (>60) BUN/Creatinine Ratio (9-20) Glucose (80-116) mg/dL POC Glucose > 600 H* (80-116) mg/dL Calcium (8.6-10.2) mg/dL Urine Color Yellow (YELLOW) Urine Appearance Slightly cloudy (CLEAR) Urine pH 6.0 (5.0-6.5) Ur Specific [place] 1.015 (1.010-1.025) Urine Protein Negative (NEGATIVE) mg/dL Urine Glucose (UA) >1000 H (NORMAL) mg/dL Urine Ketones Negative (NEGATIVE) mg/dL Urine Occult Blood Moderate H (NEGATIVE) Urine Nitrite Negative (NEGATIVE) Urine Bilirubin Negative (NEGATIVE) Urine Urobilinogen Normal (NEGATIVE) mg/dL Ur Leukocyte Esterase Moderate H (NEGATIVE) Urine RBC 0-5 (0-5) Urine WBC 20-30 H (0-5) Ur Squamous Epith Cells Occasional (NS,R,O) Urine Bacteria Few H (NS) SARS-CoV-2 RNA (SHARDA) (NEGATIVE) 02/16/21 02/16/21 02/16/21 Range/Units 19:00 19:00 20:30 WBC (3.2-10.1) x10-3/uL RBC (3.90-5.90) x10(6)uL Hgb (12.9-17.7) g/dL Hct (38.3-50.1) % MCV (80.8-98.7) fL MCH (27.0-33.3) pg MCHC (28.7-35.3) g/dL RDW (12.4-15.0) % Plt Count (117-477) x10(3)uL MPV (6.7-11.0) fL Neut % (Auto) (40.3-71.8) % Lymph % (Auto) (15.8-45.3) % [place] % (Auto) (5.5-15.2) % Eos % (Auto) (0.1-6.8) % Baso % (Auto) (0.3-3.8) % Neut # (Auto) (1.7-6.9) x10-3/uL Lymph # (Auto) (0.5-4.5) x10-3/uL [place] # (Auto) (0.0-1.2) x10-3/uL Eos # (Auto) (0.0-0.6) x10-3/uL Baso # (Auto) (0.0-0.3) x10-3/uL Add Manual Diff Neutrophils % (Manual) (46-82) % Lymphocytes % (Manual) (13-37) % Monocytes % (Manual) (4-12) % POC VBG pH 7.58 H (7.32-7.43) pH Units POC VBG pCO2 28 L (41-51) mmHg POC VBG HCO3 26 (21-29) mmol/L VBG Base Excess 5 H (-2-3) mmol/L O2 Delivery Device Room air Sodium 123 L (135-145) mmol/L Potassium 3.2 L (3.5-5.3) mmol/L Chloride 83 L* D (100-110) mmol/L Carbon Dioxide 29 (21-32) mmol/L BUN 19 H D (7-18) mg/dL Creatinine 2.4 H* (0.70-1.30) mg/dL Est Cr Clr Drug Dosing 39.23 mL/min Estimated GFR (MDRD) 31 L (>60) BUN/Creatinine Ratio 7.9 L (9-20) Glucose 899 H* D (80-116) mg/dL POC Glucose (80-116) mg/dL Calcium 7.8 L (8.6-10.2) mg/dL Urine Color (YELLOW) Urine Appearance (CLEAR) Urine pH (5.0-6.5) Ur Specific [place] (1.010-1.025) Urine Protein (NEGATIVE) mg/dL Urine Glucose (UA) (NORMAL) mg/dL Urine Ketones (NEGATIVE) mg/dL Urine Occult Blood (NEGATIVE) Urine Nitrite (NEGATIVE) Urine Bilirubin (NEGATIVE) Urine Urobilinogen (NEGATIVE) mg/dL Ur Leukocyte Esterase (NEGATIVE) Urine RBC (0-5) Urine WBC (0-5) Ur Squamous Epith Cells (NS,R,O) Urine Bacteria (NS) SARS-CoV-2 RNA (SHARDA) Negative (NEGATIVE) 02/16/21 02/16/21 02/16/21 Range/Units 20:59 21:15 22:57 WBC (3.2-10.1) x10-3/uL RBC (3.90-5.90) x10(6)uL Hgb (12.9-17.7) g/dL Hct (38.3-50.1) % MCV (80.8-98.7) fL MCH (27.0-33.3) pg MCHC (28.7-35.3) g/dL RDW (12.4-15.0) % Plt Count (117-477) x10(3)uL MPV (6.7-11.0) fL Neut % (Auto) (40.3-71.8) % Lymph % (Auto) (15.8-45.3) % [place] % (Auto) (5.5-15.2) % Eos % (Auto) (0.1-6.8) % Baso % (Auto) (0.3-3.8) % Neut # (Auto) (1.7-6.9) x10-3/uL Lymph # (Auto) (0.5-4.5) x10-3/uL [place] # (Auto) (0.0-1.2) x10-3/uL Eos # (Auto) (0.0-0.6) x10-3/uL Baso # (Auto) (0.0-0.3) x10-3/uL Add Manual Diff Neutrophils % (Manual) (46-82) % Lymphocytes % (Manual) (13-37) % Monocytes % (Manual) (4-12) % POC VBG pH (7.32-7.43) pH Units POC VBG pCO2 (41-51) mmHg POC VBG HCO3 (21-29) mmol/L VBG Base Excess (-2-3) mmol/L O2 Delivery Device Sodium (135-145) mmol/L Potassium (3.5-5.3) mmol/L Chloride (100-110) mmol/L Carbon Dioxide (21-32) mmol/L BUN (7-18) mg/dL Creatinine (0.70-1.30) mg/dL Est Cr Clr Drug Dosing mL/min Estimated GFR (MDRD) (>60) BUN/Creatinine Ratio (9-20) Glucose 569 H* D (80-116) mg/dL POC Glucose > 600 H* 244 H D (80-116) mg/dL Calcium (8.6-10.2) mg/dL Urine Color (YELLOW) Urine Appearance (CLEAR) Urine pH (5.0-6.5) Ur Specific [place] (1.010-1.025) Urine Protein (NEGATIVE) mg/dL Urine Glucose (UA) (NORMAL) mg/dL Urine Ketones (NEGATIVE) mg/dL Urine Occult Blood (NEGATIVE) Urine Nitrite (NEGATIVE) Urine Bilirubin (NEGATIVE) Urine Urobilinogen (NEGATIVE) mg/dL Ur Leukocyte Esterase (NEGATIVE) Urine RBC (0-5) Urine WBC (0-5) Ur Squamous Epith Cells (NS,R,O) Urine Bacteria (NS) SARS-CoV-2 RNA (SHARDA) (NEGATIVE) 06/30/21 06/30/21 Range/Units 06:03 06:03 WBC 15.8 H (3.2-10.1) x10-3/uL RBC 3.62 L (3.90-5.90) x10(6)uL Hgb 11.1 L (12.9-17.7) g/dL Hct 31.5 L (38.3-50.1) % MCV 87.1 (80.8-98.7) fL MCH 30.7 (27.0-33.3) pg MCHC 35.3 (28.7-35.3) g/dL RDW 12.7 (12.4-15.0) % Plt Count 443 (117-477) x10(3)uL MPV 7.5 (6.7-11.0) fL Neut % (Auto) (40.3-71.8) % Lymph % (Auto) (15.8-45.3) % [place] % (Auto) (5.5-15.2) % Eos % (Auto) (0.1-6.8) % Baso % (Auto) (0.3-3.8) % Neut # (Auto) (1.7-6.9) x10-3/uL Lymph # (Auto) (0.5-4.5) x10-3/uL [place] # (Auto) (0.0-1.2) x10-3/uL Eos # (Auto) (0.0-0.6) x10-3/uL Baso # (Auto) (0.0-0.3) x10-3/uL Add Manual Diff Yes Neutrophils % (Manual) 69 (46-82) % Lymphocytes % (Manual) 27 (13-37) % Monocytes % (Manual) 4 (4-12) % POC VBG pH (7.32-7.43) pH Units POC VBG pCO2 (41-51) mmHg POC VBG HCO3 (21-29) mmol/L VBG Base Excess (-2-3) mmol/L O2 Delivery Device Sodium 137 D (135-145) mmol/L Potassium 3.0 L (3.5-5.3) mmol/L Chloride 99 L D (100-110) mmol/L Carbon Dioxide 30 (21-32) mmol/L BUN 17 (7-18) mg/dL Creatinine 1.4 H (0.70-1.30) mg/dL Est Cr Clr Drug Dosing 67.26 mL/min Estimated GFR (MDRD) 58 L (>60) BUN/Creatinine Ratio 12.1 (9-20) Glucose 255 H D (80-116) mg/dL POC Glucose (80-116) mg/dL Calcium 8.0 L (8.6-10.2) mg/dL Urine Color (YELLOW) Urine Appearance (CLEAR) Urine pH (5.0-6.5) Ur Specific [place] (1.010-1.025) Urine Protein (NEGATIVE) mg/dL Urine Glucose (UA) (NORMAL) mg/dL Urine Ketones (NEGATIVE) mg/dL Urine Occult Blood (NEGATIVE) Urine Nitrite (NEGATIVE) Urine Bilirubin (NEGATIVE) Urine Urobilinogen (NEGATIVE) mg/dL Ur Leukocyte Esterase (NEGATIVE) Urine RBC (0-5) Urine WBC (0-5) Ur Squamous Epith Cells (NS,R,O) Urine Bacteria (NS) SARS-CoV-2 RNA (SHARDA) (NEGATIVE) Med Orders - Current: Current Medications Amitriptyline HCl (Amitriptyline 50 Mg Tab) 50 mg PO BEDTIME KAMRAN Ceftriaxone Sodium (Ceftriaxone 1 Gm Vial) 1 gm IVPUSH Q24H KAMRAN Last Admin: 02/16/21 20:17 Dose: 1 gm Documented by: Citalopram Hydrobromide (Citalopram 20 Mg Tab) 20 mg PO DAILY KAMRAN Dextrose/Water (50% Dextrose In Water 50 Ml Syringe) 50 ml IVPUSH ASDIRECTED PRN PRN Reason: Hypoglycemia Glucagon (Glucagon,Human Recombinant 1 Mg Vial) 1 mg IM ASDIRECTED PRN PRN Reason: Hypoglycemia Potassium Chloride/Sodium Chloride (Normal Saline With 20 Meq Kcl) 1,000 mls @ 150 mls/hr IV ASDIRECTED KAMRAN Last Admin: 02/17/21 01:36 Dose: 150 mls/hr Documented by: Insulin Human Lispro (Insulin Lispro 100 Unit/Ml 3 Ml Kwikpen) 0 unit SUBCUT Q2H PRN; Protocol PRN Reason: Hyperglycemia Last Admin: 02/17/21 06:53 Dose: 9 units Documented by: Ondansetron HCl (Ondansetron 4 Mg/2 Ml Sdv) 4 mg IV Q4H PRN PRN Reason: Nausea/Vomiting Promethazine HCl (Promethazine 25 Mg Tab) 25 mg PO Q6H PRN PRN Reason: nausea, able to take PO Sodium Chloride (Sodium Chloride 0.9% 10 Ml Syringe) 10 ml FLUSH ASDIRECTED PRN PRN Reason: Keep Vein Open Last Admin: 02/16/21 20:20 Dose: 10 ml Documented by: Sodium Chloride (Sodium Chloride 0.9% 3 Ml Syringe) 3 ml FLUSH ASDIRECTED PRN PRN Reason: Keep Vein Open Discontinued Medications Amitriptyline HCl (Amitriptyline 25 Mg Tab) 50 mg PO BEDTIME KAMRAN Last Admin: 02/16/21 20:03 Dose: 50 mg Documented by: Dextrose/Water (50% Dextrose In Water 50 Ml Syringe) 50 ml IVPUSH ASDIRECTED PRN PRN Reason: Hypoglycemia Dextrose/Water (50% Dextrose In Water 50 Ml Syringe) 50 ml IVPUSH ASDIRECTED PRN PRN Reason: Hypoglycemia Glucagon (Glucagon,Human Recombinant 1 Mg Vial) 1 mg IM ASDIRECTED PRN PRN Reason: Hypoglycemia Glucagon (Glucagon,Human Recombinant 1 Mg Vial) 1 mg IM ASDIRECTED PRN PRN Reason: Hypoglycemia Insulin Human Lispro (Insulin Lispro 100 Unit/Ml 3 Ml Kwikpen) 30 unit SUBCUT STAT STA Stop: 02/16/21 19:48 Last Admin: 02/16/21 19:54 Dose: 30 units Documented by: Insulin Human Lispro (Insulin Lispro 100 Unit/Ml 3 Ml Kwikpen) Confirm Administered Dose 300 unit SUBCUT .STK-MED ONE Stop: 02/16/21 19:53 Last Admin: 02/16/21 20:07 Dose: Not Given Documented by: Insulin Human Lispro (Insulin Lispro 100 Unit/Ml 3 Ml Kwikpen) 20 unit SUBCUT STAT ONE Stop: 02/16/21 21:46 Last Admin: 02/16/21 21:47 Dose: 20 units Documented by: - Patient Data Lab Results Last 24 hrs: Laboratory Results - last 24 hr 02/16/21 02/16/21 02/16/21 Range/Units 18:20 18:55 19:00 WBC 14.5 H (3.2-10.1) x10-3/uL RBC 3.60 L (3.90-5.90) x10(6)uL Hgb 11.1 L D (12.9-17.7) g/dL Hct 32.7 L D (38.3-50.1) % MCV 91.0 (80.8-98.7) fL MCH 30.7 (27.0-33.3) pg MCHC 33.8 (28.7-35.3) g/dL RDW 12.8 (12.4-15.0) % Plt Count 442 (117-477) x10(3)uL MPV 7.9 (6.7-11.0) fL Neut % (Auto) 80.9 H (40.3-71.8) % Lymph % (Auto) 13.7 L (15.8-45.3) % [place] % (Auto) 4.2 L (5.5-15.2) % Eos % (Auto) 0.8 (0.1-6.8) % Baso % (Auto) 0.4 (0.3-3.8) % Neut # (Auto) 11.7 H (1.7-6.9) x10-3/uL Lymph # (Auto) 2.0 (0.5-4.5) x10-3/uL [place] # (Auto) 0.6 (0.0-1.2) x10-3/uL Eos # (Auto) 0.1 (0.0-0.6) x10-3/uL Baso # (Auto) 0.1 (0.0-0.3) x10-3/uL Add Manual Diff Neutrophils % (Manual) (46-82) % Lymphocytes % (Manual) (13-37) % Monocytes % (Manual) (4-12) % POC VBG pH (7.32-7.43) pH Units POC VBG pCO2 (41-51) mmHg POC VBG HCO3 (21-29) mmol/L VBG Base Excess (-2-3) mmol/L O2 Delivery Device Sodium (135-145) mmol/L Potassium (3.5-5.3) mmol/L Chloride (100-110) mmol/L Carbon Dioxide (21-32) mmol/L BUN (7-18) mg/dL Creatinine (0.70-1.30) mg/dL Est Cr Clr Drug Dosing mL/min Estimated GFR (MDRD) (>60) BUN/Creatinine Ratio (9-20) Glucose (80-116) mg/dL POC Glucose > 600 H* (80-116) mg/dL Calcium (8.6-10.2) mg/dL Urine Color Yellow (YELLOW) Urine Appearance Slightly cloudy (CLEAR) Urine pH 6.0 (5.0-6.5) Ur Specific [place] 1.015 (1.010-1.025) Urine Protein Negative (NEGATIVE) mg/dL Urine Glucose (UA) >1000 H (NORMAL) mg/dL Urine Ketones Negative (NEGATIVE) mg/dL Urine Occult Blood Moderate H (NEGATIVE) Urine Nitrite Negative (NEGATIVE) Urine Bilirubin Negative (NEGATIVE) Urine Urobilinogen Normal (NEGATIVE) mg/dL Ur Leukocyte Esterase Moderate H (NEGATIVE) Urine RBC 0-5 (0-5) Urine WBC 20-30 H (0-5) Ur Squamous Epith Cells Occasional (NS,R,O) Urine Bacteria Few H (NS) SARS-CoV-2 RNA (SHARDA) (NEGATIVE) 02/16/21 02/16/21 02/16/21 Range/Units 19:00 19:00 20:30 WBC (3.2-10.1) x10-3/uL RBC (3.90-5.90) x10(6)uL Hgb (12.9-17.7) g/dL Hct (38.3-50.1) % MCV (80.8-98.7) fL MCH (27.0-33.3) pg MCHC (28.7-35.3) g/dL RDW (12.4-15.0) % Plt Count (117-477) x10(3)uL MPV (6.7-11.0) fL Neut % (Auto) (40.3-71.8) % Lymph % (Auto) (15.8-45.3) % [place] % (Auto) (5.5-15.2) % Eos % (Auto) (0.1-6.8) % Baso % (Auto) (0.3-3.8) % Neut # (Auto) (1.7-6.9) x10-3/uL Lymph # (Auto) (0.5-4.5) x10-3/uL [place] # (Auto) (0.0-1.2) x10-3/uL Eos # (Auto) (0.0-0.6) x10-3/uL Baso # (Auto) (0.0-0.3) x10-3/uL Add Manual Diff Neutrophils % (Manual) (46-82) % Lymphocytes % (Manual) (13-37) % Monocytes % (Manual) (4-12) % POC VBG pH 7.58 H (7.32-7.43) pH Units POC VBG pCO2 28 L (41-51) mmHg POC VBG HCO3 26 (21-29) mmol/L VBG Base Excess 5 H (-2-3) mmol/L O2 Delivery Device Room air Sodium 123 L (135-145) mmol/L Potassium 3.2 L (3.5-5.3) mmol/L Chloride 83 L* D (100-110) mmol/L Carbon Dioxide 29 (21-32) mmol/L BUN 19 H D (7-18) mg/dL Creatinine 2.4 H* (0.70-1.30) mg/dL Est Cr Clr Drug Dosing 39.23 mL/min Estimated GFR (MDRD) 31 L (>60) BUN/Creatinine Ratio 7.9 L (9-20) Glucose 899 H* D (80-116) mg/dL POC Glucose (80-116) mg/dL Calcium 7.8 L (8.6-10.2) mg/dL Urine Color (YELLOW) Urine Appearance (CLEAR) Urine pH (5.0-6.5) Ur Specific [place] (1.010-1.025) Urine Protein (NEGATIVE) mg/dL Urine Glucose (UA) (NORMAL) mg/dL Urine Ketones (NEGATIVE) mg/dL Urine Occult Blood (NEGATIVE) Urine Nitrite (NEGATIVE) Urine Bilirubin (NEGATIVE) Urine Urobilinogen (NEGATIVE) mg/dL Ur Leukocyte Esterase (NEGATIVE) Urine RBC (0-5) Urine WBC (0-5) Ur Squamous Epith Cells (NS,R,O) Urine Bacteria (NS) SARS-CoV-2 RNA (SHARDA) Negative (NEGATIVE) 02/16/21 02/16/21 02/16/21 Range/Units 20:59 21:15 22:57 WBC (3.2-10.1) x10-3/uL RBC (3.90-5.90) x10(6)uL Hgb (12.9-17.7) g/dL Hct (38.3-50.1) % MCV (80.8-98.7) fL MCH (27.0-33.3) pg MCHC (28.7-35.3) g/dL RDW (12.4-15.0) % Plt Count (117-477) x10(3)uL MPV (6.7-11.0) fL Neut % (Auto) (40.3-71.8) % Lymph % (Auto) (15.8-45.3) % [place] % (Auto) (5.5-15.2) % Eos % (Auto) (0.1-6.8) % Baso % (Auto) (0.3-3.8) % Neut # (Auto) (1.7-6.9) x10-3/uL Lymph # (Auto) (0.5-4.5) x10-3/uL [place] # (Auto) (0.0-1.2) x10-3/uL Eos # (Auto) (0.0-0.6) x10-3/uL Baso # (Auto) (0.0-0.3) x10-3/uL Add Manual Diff Neutrophils % (Manual) (46-82) % Lymphocytes % (Manual) (13-37) % Monocytes % (Manual) (4-12) % POC VBG pH (7.32-7.43) pH Units POC VBG pCO2 (41-51) mmHg POC VBG HCO3 (21-29) mmol/L VBG Base Excess (-2-3) mmol/L O2 Delivery Device Sodium (135-145) mmol/L Potassium (3.5-5.3) mmol/L Chloride (100-110) mmol/L Carbon Dioxide (21-32) mmol/L BUN (7-18) mg/dL Creatinine (0.70-1.30) mg/dL Est Cr Clr Drug Dosing mL/min Estimated GFR (MDRD) (>60) BUN/Creatinine Ratio (9-20) Glucose 569 H* D (80-116) mg/dL POC Glucose > 600 H* 244 H D (80-116) mg/dL Calcium (8.6-10.2) mg/dL Urine Color (YELLOW) Urine Appearance (CLEAR) Urine pH (5.0-6.5) Ur Specific [place] (1.010-1.025) Urine Protein (NEGATIVE) mg/dL Urine Glucose (UA) (NORMAL) mg/dL Urine Ketones (NEGATIVE) mg/dL Urine Occult Blood (NEGATIVE) Urine Nitrite (NEGATIVE) Urine Bilirubin (NEGATIVE) Urine Urobilinogen (NEGATIVE) mg/dL Ur Leukocyte Esterase (NEGATIVE) Urine RBC (0-5) Urine WBC (0-5) Ur Squamous Epith Cells (NS,R,O) Urine Bacteria (NS) SARS-CoV-2 RNA (SHARDA) (NEGATIVE) 02/17/21 02/17/21 Range/Units 06:03 06:03 WBC 15.8 H (3.2-10.1) x10-3/uL RBC 3.62 L (3.90-5.90) x10(6)uL Hgb 11.1 L (12.9-17.7) g/dL Hct 31.5 L (38.3-50.1) % MCV 87.1 (80.8-98.7) fL MCH 30.7 (27.0-33.3) pg MCHC 35.3 (28.7-35.3) g/dL RDW 12.7 (12.4-15.0) % Plt Count 443 (117-477) x10(3)uL MPV 7.5 (6.7-11.0) fL Neut % (Auto) (40.3-71.8) % Lymph % (Auto) (15.8-45.3) % [place] % (Auto) (5.5-15.2) % Eos % (Auto) (0.1-6.8) % Baso % (Auto) (0.3-3.8) % Neut # (Auto) (1.7-6.9) x10-3/uL Lymph # (Auto) (0.5-4.5) x10-3/uL [place] # (Auto) (0.0-1.2) x10-3/uL Eos # (Auto) (0.0-0.6) x10-3/uL Baso # (Auto) (0.0-0.3) x10-3/uL Add Manual Diff Yes Neutrophils % (Manual) 69 (46-82) % Lymphocytes % (Manual) 27 (13-37) % Monocytes % (Manual) 4 (4-12) % POC VBG pH (7.32-7.43) pH Units POC VBG pCO2 (41-51) mmHg POC VBG HCO3 (21-29) mmol/L VBG Base Excess (-2-3) mmol/L O2 Delivery Device Sodium 137 D (135-145) mmol/L Potassium 3.0 L (3.5-5.3) mmol/L Chloride 99 L D (100-110) mmol/L Carbon Dioxide 30 (21-32) mmol/L BUN 17 (7-18) mg/dL Creatinine 1.4 H (0.70-1.30) mg/dL Est Cr Clr Drug Dosing 67.26 mL/min Estimated GFR (MDRD) 58 L (>60) BUN/Creatinine Ratio 12.1 (9-20) Glucose 255 H D (80-116) mg/dL POC Glucose (80-116) mg/dL Calcium 8.0 L (8.6-10.2) mg/dL Urine Color (YELLOW) Urine Appearance (CLEAR) Urine pH (5.0-6.5) Ur Specific [place] (1.010-1.025) Urine Protein (NEGATIVE) mg/dL Urine Glucose (UA) (NORMAL) mg/dL Urine Ketones (NEGATIVE) mg/dL Urine Occult Blood (NEGATIVE) Urine Nitrite (NEGATIVE) Urine Bilirubin (NEGATIVE) Urine Urobilinogen (NEGATIVE) mg/dL Ur Leukocyte Esterase (NEGATIVE) Urine RBC (0-5) Urine WBC (0-5) Ur Squamous Epith Cells (NS,R,O) Urine Bacteria (NS) SARS-CoV-2 RNA (SHARDA) (NEGATIVE) Result Diagrams: 02/17/21 06:03 02/17/21 06:03 Sepsis Event Note - Evaluation Sepsis Screening Result: No Definite Risk - Focused Exam Vital Signs: Vital Signs Temp Pulse Resp BP Pulse Ox 02/17/21 04:00 99 F 108 H 18 99/53 L 99 02/17/21 00:00 98.1 F 102 H 18 106/64 99 02/16/21 22:00 99.1 F 104 H 19 105/62 99 - Problem List & Annotations (1) Hyperglycemia due to diabetes mellitus SNOMED Code(s): 797196734, 397604215 Code(s): E11.65 - TYPE 2 DIABETES MELLITUS WITH HYPERGLYCEMIA Status: Acute Current Visit: Yes (2) Hypokalemia SNOMED Code(s): 96255085 Code(s): E87.6 - HYPOKALEMIA Status: Acute Current Visit: No (3) Acute kidney failure SNOMED Code(s): 91609439 Code(s): N17.9 - ACUTE KIDNEY FAILURE, UNSPECIFIED Status: Acute Current Visit: Yes (4) UTI (urinary tract infection) SNOMED Code(s): 29255245 Code(s): N39.0 - URINARY TRACT INFECTION, SITE NOT SPECIFIED Status: Acute Current Visit: Yes Qualifiers: Urinary tract infection type: acute cystitis Hematuria presence: with he maturia Qualified Code(s): N30.01 - Acute cystitis with hematuria (5) Diarrhea SNOMED Code(s): 30222013 Code(s): R19.7 - DIARRHEA, UNSPECIFIED Status: Acute Current Visit: No (6) Vomiting SNOMED Code(s): 516858599 Code(s): R11.10 - VOMITING, UNSPECIFIED Status: Acute Current Visit: Yes Annotation/Comment:: present on admission (7) Urinary retention SNOMED Code(s): 293183997 Code(s): R33.9 - RETENTION OF URINE, UNSPECIFIED Status: Chronic Current Visit: Yes (8) Overflow incontinence of urine SNOMED Code(s): 740294240 Code(s): N39.490 - OVERFLOW INCONTINENCE Status: Acute Current Visit: Yes - Problem List Review Problem List Initiated/Reviewed/Updated: Yes - My Orders Last 24 Hours: My Active Orders 02/16/21 18:20 CULTURE URINE [RM] Routine 02/16/21 18:36 Up ad Grace [RC] ASDIRECTED Ondansetron [Zofran] 4 mg IV Q4H PRN Promethazine [Phenergan] 25 mg PO Q6H PRN Sodium Chloride 0.9% [Saline Flush] 10 ml FLUSH ASDIRECTED PRN Peripheral IV Insertion Adult [OM.PC] Routine Resuscitation Status Routine 02/16/21 18:41 Patient Status [ADT] Routine Oxygen Therapy [RC] PRN VTE/DVT Education [RC] Per Unit Routine Vital Signs [RC] Q4H 02/16/21 18:43 Ambulate [RC] PER UNIT ROUTINE 02/16/21 18:44 Blood Glucose Check, Bedside [RC] Q4H 02/16/21 18:45 Insulin Lispro [HumaLOG] See Protocol SUBCUT Q2H PRN NS + KCl 20mEq/L [Normal Saline with 20 mEq KCl] 1,000 ml IV ASDIRECTED 02/16/21 20:00 cefTRIAXone [Rocephin] 1 gm IVPUSH Q24H 02/16/21 20:18 Sodium Chloride 0.9% [Saline Flush] 3 ml FLUSH ASDIRECTED PRN 02/17/21 Breakfast Consistent Carbohydrate Diet [DIET] 02/17/21 09:00 Citalopram [Celexa] 20 mg PO DAILY 02/17/21 21:00 Amitriptyline [Elavil] 50 mg PO BEDTIME 02/18/21 06:00 CBC WITH AUTO DIFF [HEME] Routine COMPREHENSIVE METABOLIC PN,CMP [CHEM] Routine - Plan Plan:: 1. Hyperglycemia/uncontrolled DM: AccuChecks meals & bedtime, Humalog sliding scale. Used 65 units of Humalog overnight, will see what his 24 hour requirements are and restart/adjust his Lantus accordingly. Recheck labs tomorrow NS with KCL 20mEQ at 150 ml/hr. Will advance diet. DM education. 2. UTI: Rocephin 1 g IV q24h, WBC 15.8. Urine culture pending. Awaiting culture results, WBC bumped up from last night, received 1 dose of Rocephin so far, will adjust treatments as necessary. 3. AKF/dehydration: Improving but not at baseline, Cr 1.4, NS with KCL 20 meQ at 150 ml/hr. Repeat CMP in am. 4. Hypokalemia: KCL 20 mEq oral BID in addition to IV fluids. 5. Diet: Consistent carb diet. 6. Diarrhea/vomiting: colonoscopy in December 2019 showed diverticula, took some biopsies(do not see those reports). No record of stool studies done. Could also be medication related if he is taking his metformin but he reports that he hasn't been. Stool culture, ova & parasites. No recent antibiotic use, was on Nitrofurantoin in Fall 2019 so will not do C. difficile at this time. Probiotics bid, Imodium as needed. 7. Discharge planning: adjust treatments as necessary.
[2021-02-17] MEDS: Citalopram 20 MG Tab PO SCH (08:28)
[2021-02-17] MEDS ORDERED: Loperamide 2 MG Cap PO PRN (09:28)
[2021-02-17] MEDS: Saccharomyces Boulardii (Probiotic) 250 MG Cap PO SCH ×2 (09:36→21:11)
[2021-02-17] MEDS: Potassium Chloride 20 MEQ Tab.ER PO SCH ×2 (09:36→21:12)
[2021-02-17] MEDS: cefTRIAXone 1 GM Vial IVPUSH SCH (19:49)
[2021-02-17] MEDS: Sodium Chloride 0.9% 10 ML Syringe FLUSH PRN (19:50)
[2021-02-17] MEDS ORDERED: Amitriptyline 25 MG Tab PO SCH (21:00)
[2021-02-18] MEDS: Insulin Lispro 100 Unit/ML 3 ML KwikPen SUBCUT PRN ×3 (03:45→11:10)
[2021-02-18] MEDS: NS + KCl 20mEq/L 1,000 ML IV SCH (04:56)
[2021-02-18] MEDS: Sodium Chloride 0.9% 10 ML Syringe FLUSH PRN (08:55)
[2021-02-18] MEDS: Citalopram 20 MG Tab PO SCH (09:00)
[2021-02-18] MEDS: Saccharomyces Boulardii (Probiotic) 250 MG Cap PO SCH (09:00)
--- NOTE | 2021-02-18 15:19 | PCM.DCSUM1 ---
Discharge Summary - Hospital Course HPI Initial Comments: Mookie presented for direct admission for hyperglycemia, blood sugar of 915 at [facility]. He had a syncopal episode on 02/04, had set his alarm to get up at 8am, went and got water and passed out and when he woke up asked [employer] what time it was 840am. He did not go to get evaluated at that time. He states that he has no appetite, when he forces himself to eat then he vomits. Has chronic diarrhea, had colonoscopy 12/2019 but normal. He has not taken his Metformin for a long time. HgbA1c at clinic has been >14 since 04/2020. He had normal kidney function prior to today, Cr in clinic was 2.36, Na 121, corrected for blood sugars was 124, CO2 was normal. They were not able to get UA. Blood pressure in clinic was 98/58, Temp 96.8F, he has lost about 40 lbs since last year unintentional. History of urinary retention with overactive bladder, saw Dr Odalys macias, was straight catheterizing at home but then started being able to urinate on his own about a month ago. He has had multiple no shows with Dr Davis. He also reports he has been having more overflow incontinence in the past month. He smokes 1 ppd of cigarettes. No history of surgeries. He states he drinks about a gallon of water a day. Diagnosis: Stroke: No - Discharge Data Discharge Date: 02/18/21 Discharge Disposition: Home, Self-Care 01 Condition: Good - Referral to Home Health Primary Care Physician: Yennifer Marino NP - Discharge Diagnosis/Problem(s) (1) Hyperglycemia due to diabetes mellitus SNOMED Code(s): 706910808, 689955492 ICD Code: E11.65 - TYPE 2 DIABETES MELLITUS WITH HYPERGLYCEMIA Status: Chronic (2) Hypokalemia SNOMED Code(s): 16944951 ICD Code: E87.6 - HYPOKALEMIA Status: Resolved (3) Acute kidney failure SNOMED Code(s): 27773258 ICD Code: N17.9 - ACUTE KIDNEY FAILURE, UNSPECIFIED Status: Resolved (4) UTI (urinary tract infection) SNOMED Code(s): 82771067 ICD Code: N39.0 - URINARY TRACT INFECTION, SITE NOT SPECIFIED Status: Ruled-out Problem Details: Urine culture no growth Qualifiers: Urinary tract infection type: acute cystitis Hematuria presence: with hematuria Qualified Code(s): N30.01 - Acute cystitis with hematuria (5) Diarrhea SNOMED Code(s): 43773594 ICD Code: R19.7 - DIARRHEA, UNSPECIFIED Status: Resolved (6) Vomiting SNOMED Code(s): 371262987 ICD Code: R11.10 - VOMITING, UNSPECIFIED Status: Resolved Problem Details: present on admission (7) Urinary retention SNOMED Code(s): 448595398 ICD Code: R33.9 - RETENTION OF URINE, UNSPECIFIED Status: Resolved (8) Overflow incontinence of urine SNOMED Code(s): 308642092 ICD Code: N39.490 - OVERFLOW INCONTINENCE Status: Acute - Patient Summary/Data Hospital Course: Don blood sugars came down from 899 to 244 morning after admission, received 65 units of Humalog insulin overnight. 24 hour Humalog use yesterday was 72 units, BS were 227, 364, 306, & 167 this morning. His diet was advanced from clears to Soft Consistent carb diet, he tolerated this well. Stool culture, Ova & Parasite were collected & pending. He had no further diarrhea, was started on Florastor and had Imodium 2 mg x1 on February 17. No nausea or vomiting. He received NS with KCL 20 mEq 5542 ml during hospitalization. His potassium was 3.0 yesterday, KCL 20 mEq po bid given in addition to IVF, potassium today was 3.9. Creatinine improved from 2.4 to 1.4 to 1.2 today. WBC 14.5, 15.8 and today was 11.4, received 2 doses of Rocephin. UA: positive for blood, >1000 glucose, no ketones, moderate LE, WBC 20-30, occasional epithelial cells, few bacteria. Urine culture: no growth at 2 days. Rocephin discontinued. 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 - Patient Instructions Diet: Diabetic Diet Activity: As Tolerated Other/Special Instructions: Follow up with Yennifer Marino NP at [facility] early next week to recheck your blood sugars and also discuss if need medication for overactive bladder. - Discharge Plan *PRESCRIPTION DRUG MONITORING PROGRAM REVIEWED*: Not Applicable *COPY OF PRESCRIPTION DRUG MONITORING REPORT IN PATIENT OMAR: Not Applicable Prescriptions/Med Rec: Insulin Glarg,Human.Rec.Analog [Lantus Solostar] 36 unit SUBCUT BID #1 box Home Medications: Home Meds Amitriptyline [Elavil] 50 mg PO BEDTIME 01/14/20 [History] Citalopram [Citalopram HBr] 20 mg PO DAILY 02/16/21 [History] Insulin Glarg,Human.Rec.Analog [Lantus Solostar] 36 unit SUBCUT BID #1 box 02/18/21 [Rx] Patient Handouts: Hyperglycemia, Urinary Tract Infection, Adult, Fall Prevention in Hospitals, Adult, Preventing Diabetic Ketoacidosis, Venous Thromboembolism Prevention - Discharge Summary/Plan Comment DC Time >30 min.: No - General Info Date of Service: 02/18/21 Subjective Update: He is feeling much better today. Tolerated soft Diabetic diet. No nausea, vomiting or diarrhea. Had Imodium yesterday. He was in the bathroom a lot yesterday, stated overactive bladder. He is on Amitriptyline so that could had caused his acute urinary retention prior to admission. States he has had overactive bladder since December but has not been seen for this. He states that he doesn't remember to take his insulin. Discussed setting an alarm on his phone as well as getting Freestyle Molly meter & sensor so he can check his sugars easily. - Patient Data Vitals - Most Recent: Last Vital Signs Temp 98.1 F 02/18/21 07:20 Pulse 94 02/18/21 07:20 Resp 20 02/18/21 07:20 BP 115/84 02/18/21 07:20 Pulse Ox 99 02/18/21 07:20 Weight - Most Recent: 141 lb I&O - Last 24 hours: Intake & Output 02/18/21 02/18/21 02/18/21 06:59 14:59 22:59 Intake Total 1160 580 Balance 1160 580 Lab Results - Last 24 hrs: Laboratory Results - last 24 hr 02/17/21 02/17/21 02/17/21 Range/Units 15:19 19:03 22:53 WBC (3.2-10.1) x10-3/uL RBC (3.90-5.90) x10(6)uL Hgb (12.9-17.7) g/dL Hct (38.3-50.1) % MCV (80.8-98.7) fL MCH (27.0-33.3) pg MCHC (28.7-35.3) g/dL RDW (12.4-15.0) % Plt Count (117-477) x10(3)uL MPV (6.7-11.0) fL Neut % (Auto) (40.3-71.8) % Lymph % (Auto) (15.8-45.3) % [place] % (Auto) (5.5-15.2) % Eos % (Auto) (0.1-6.8) % Baso % (Auto) (0.3-3.8) % Neut # (Auto) (1.7-6.9) x10-3/uL Lymph # (Auto) (0.5-4.5) x10-3/uL [place] # (Auto) (0.0-1.2) x10-3/uL Eos # (Auto) (0.0-0.6) x10-3/uL Baso # (Auto) (0.0-0.3) x10-3/uL Sodium (135-145) mmol/L Potassium (3.5-5.3) mmol/L Chloride (100-110) mmol/L Carbon Dioxide (21-32) mmol/L BUN (7-18) mg/dL Creatinine (0.70-1.30) mg/dL Est Cr Clr Drug Dosing mL/min Estimated GFR (MDRD) (>60) BUN/Creatinine Ratio (9-20) Glucose (80-116) mg/dL POC Glucose 398 H 227 H D 364 H D (80-116) mg/dL Calcium (8.6-10.2) mg/dL Total Bilirubin (0.1-1.3) mg/dL AST (5-25) IU/L ALT (12-36) U/L Alkaline Phosphatase (56-112) IU/L Total Protein (6.0-8.0) g/dL Albumin (3.5-5.2) g/dL Globulin g/dL Albumin/Globulin Ratio 02/18/21 02/18/21 02/18/21 Range/Units 03:45 06:07 06:07 WBC 11.4 H (3.2-10.1) x10-3/uL RBC 3.60 L (3.90-5.90) x10(6)uL Hgb 11.1 L (12.9-17.7) g/dL Hct 32.5 L (38.3-50.1) % MCV 90.2 (80.8-98.7) fL MCH 30.7 (27.0-33.3) pg MCHC 34.1 (28.7-35.3) g/dL RDW 12.8 (12.4-15.0) % Plt Count 499 H (117-477) x10(3)uL MPV 7.6 (6.7-11.0) fL Neut % (Auto) 64.4 (40.3-71.8) % Lymph % (Auto) 26.4 (15.8-45.3) % [place] % (Auto) 6.0 (5.5-15.2) % Eos % (Auto) 2.5 (0.1-6.8) % Baso % (Auto) 0.7 (0.3-3.8) % Neut # (Auto) 7.3 H (1.7-6.9) x10-3/uL Lymph # (Auto) 3.0 (0.5-4.5) x10-3/uL [place] # (Auto) 0.7 (0.0-1.2) x10-3/uL Eos # (Auto) 0.3 (0.0-0.6) x10-3/uL Baso # (Auto) 0.1 (0.0-0.3) x10-3/uL Sodium 146 H (135-145) mmol/L Potassium 3.9 (3.5-5.3) mmol/L Chloride 111 H D (100-110) mmol/L Carbon Dioxide 29 (21-32) mmol/L BUN 10 (7-18) mg/dL Creatinine 1.2 (0.70-1.30) mg/dL Est Cr Clr Drug Dosing 78.47 mL/min Estimated GFR (MDRD) > 60 (>60) BUN/Creatinine Ratio 8.3 L (9-20) Glucose 167 H D (80-116) mg/dL POC Glucose 306 H (80-116) mg/dL Calcium 8.6 (8.6-10.2) mg/dL Total Bilirubin 0.3 (0.1-1.3) mg/dL AST 9 D (5-25) IU/L ALT 13 D (12-36) U/L Alkaline Phosphatase 118 H (56-112) IU/L Total Protein 6.6 (6.0-8.0) g/dL Albumin 2.4 L (3.5-5.2) g/dL Globulin 4.2 g/dL Albumin/Globulin Ratio 0.6 02/18/21 Range/Units 11:08 WBC (3.2-10.1) x10-3/uL RBC (3.90-5.90) x10(6)uL Hgb (12.9-17.7) g/dL Hct (38.3-50.1) % MCV (80.8-98.7) fL MCH (27.0-33.3) pg MCHC (28.7-35.3) g/dL RDW (12.4-15.0) % Plt Count (117-477) x10(3)uL MPV (6.7-11.0) fL Neut % (Auto) (40.3-71.8) % Lymph % (Auto) (15.8-45.3) % [place] % (Auto) (5.5-15.2) % Eos % (Auto) (0.1-6.8) % Baso % (Auto) (0.3-3.8) % Neut # (Auto) (1.7-6.9) x10-3/uL Lymph # (Auto) (0.5-4.5) x10-3/uL [place] # (Auto) (0.0-1.2) x10-3/uL Eos # (Auto) (0.0-0.6) x10-3/uL Baso # (Auto) (0.0-0.3) x10-3/uL Sodium (135-145) mmol/L Potassium (3.5-5.3) mmol/L Chloride (100-110) mmol/L Carbon Dioxide (21-32) mmol/L BUN (7-18) mg/dL Creatinine (0.70-1.30) mg/dL Est Cr Clr Drug Dosing mL/min Estimated GFR (MDRD) (>60) BUN/Creatinine Ratio (9-20) Glucose (80-116) mg/dL POC Glucose 265 H (80-116) mg/dL Calcium (8.6-10.2) mg/dL Total Bilirubin (0.1-1.3) mg/dL AST (5-25) IU/L ALT (12-36) U/L Alkaline Phosphatase (56-112) IU/L Total Protein (6.0-8.0) g/dL Albumin (3.5-5.2) g/dL Globulin g/dL Albumin/Globulin Ratio DENY Results - Last 24 hrs: Microbiology 02/16/21 18:20 Urine Culture - Final Urine, Voided NO GROWTH AFTER 2 DAYS Med Orders - Current: Current Medications Discontinued Medications Amitriptyline HCl (Amitriptyline 25 Mg Tab) 50 mg PO BEDTIME [facility] Last Admin: 02/16/21 20:03 Dose: 50 mg Documented by: Amitriptyline HCl (Amitriptyline 25 Mg Tab) 50 mg PO BEDTIME [facility] Last Admin: 02/17/21 21:10 Dose: 50 mg Documented by: Ceftriaxone Sodium (Ceftriaxone 1 Gm Vial) 1 gm IVPUSH Q24H [facility] Last Admin: 02/17/21 19:49 Dose: 1 gm Documented by: Citalopram Hydrobromide (Citalopram 20 Mg Tab) 20 mg PO DAILY [facility] Last Admin: 02/18/21 09:00 Dose: 20 mg Documented by: Dextrose/Water (50% Dextrose In Water 50 Ml Syringe) 50 ml IVPUSH ASDIRECTED PRN PRN Reason: Hypoglycemia Dextrose/Water (50% Dextrose In Water 50 Ml Syringe) 50 ml IVPUSH ASDIRECTED PRN PRN Reason: Hypoglycemia Dextrose/Water (50% Dextrose In Water 50 Ml Syringe) 50 ml IVPUSH ASDIRECTED PRN PRN Reason: Hypoglycemia Glucagon (Glucagon,Human Recombinant 1 Mg Vial) 1 mg IM ASDIRECTED PRN PRN Reason: Hypoglycemia Glucagon (Glucagon,Human Recombinant 1 Mg Vial) 1 mg IM ASDIRECTED PRN PRN Reason: Hypoglycemia Glucagon (Glucagon,Human Recombinant 1 Mg Vial) 1 mg IM ASDIRECTED PRN PRN Reason: Hypoglycemia Potassium Chloride/Sodium Chloride (Normal Saline With 20 Meq Kcl) 1,000 mls @ 150 mls/hr IV ASDIRECTED [facility] Last Admin: 02/17/21 01:36 Dose: 150 mls/hr Documented by: Potassium Chloride/Sodium Chloride (Normal Saline With 20 Meq Kcl) 1,000 mls @ 150 mls/hr IV Q7H [facility] Last Admin: 02/18/21 04:56 Dose: 150 mls/hr Documented by: Insulin Human Lispro (Insulin Lispro 100 Unit/Ml 3 Ml Kwikpen) 0 unit SUBCUT Q2H PRN; Protocol PRN Reason: Hyperglycemia Last Admin: 02/18/21 11:10 Dose: 9 units Documented by: Insulin Human Lispro (Insulin Lispro 100 Unit/Ml 3 Ml Kwikpen) 30 unit SUBCUT STAT STA Stop: 02/16/21 19:48 Last Admin: 02/16/21 19:54 Dose: 30 units Documented by: Insulin Human Lispro (Insulin Lispro 100 Unit/Ml 3 Ml Kwikpen) Confirm Administered Dose 300 unit SUBCUT .STK-MED ONE Stop: 02/16/21 19:53 Last Admin: 02/16/21 20:07 Dose: Not Given Documented by: Insulin Human Lispro (Insulin Lispro 100 Unit/Ml 3 Ml Kwikpen) 20 unit SUBCUT STAT ONE Stop: 02/16/21 21:46 Last Admin: 02/16/21 21:47 Dose: 20 units Documented by: Loperamide HCl (Loperamide 2 Mg Cap) 2 mg PO ASDIRECTED PRN PRN Reason: DIARRHEA Last Admin: 02/17/21 13:07 Dose: 2 mg Documented by: Ondansetron HCl (Ondansetron 4 Mg/2 Ml Sdv) 4 mg IV Q4H PRN PRN Reason: Nausea/Vomiting Potassium Chloride (Potassium Chloride 20 Meq Tab.Er) 20 meq PO BID [facility] Stop: 02/17/21 21:01 Last Admin: 02/17/21 21:12 Dose: 20 meq Documented by: Promethazine HCl (Promethazine 25 Mg Tab) 25 mg PO Q6H PRN PRN Reason: nausea, able to take PO Saccharomyces Boulardii (Saccharomyces Boulardii (Probiotic) 250 Mg Cap) 250 mg PO BID [facility]AN Last Admin: 02/18/21 09:00 Dose: 250 mg Documented by: Sodium Chloride (Sodium Chloride 0.9% 10 Ml Syringe) 10 ml FLUSH ASDIRECTED PRN PRN Reason: Keep Vein Open Last Admin: 02/18/21 08:55 Dose: 10 ml Documented by: Sodium Chloride (Sodium Chloride 0.9% 3 Ml Syringe) 3 ml FLUSH ASDIRECTED PRN PRN Reason: Keep Vein Open - Exam General: Reports: Alert, Oriented, Cooperative, No Acute Distress Lungs: Reports: Clear to Auscultation, Normal Respiratory Effort Cardiovascular: Reports: Regular Rate, Regular Rhythm GI/Abdominal Exam: Normal Bowel Sounds, Soft, Non-Tender, No Distention (Male) Exam: Deferred Rectal (Males) Exam: Deferred Extremities: No Pedal Edema
== END 2021-02-18 11:30 | disposition home or self-care (01) | DRG 638 ==
LOC: FB.MS 18:07
PROVIDERS: ADMIT Family Medicine; ATTEND Family Medicine
DX: E11.65 Type 2 diabetes mellitus with hyperglycemia (principal); N30.01 Acute cystitis with hematuria; N17.9 Acute kidney failure, unspecified; R33.9 Retention of urine, unspecified; N39.490 Overflow incontinence; F17.210 Nicotine dependence, cigarettes, uncomplicated; H54.7 Unspecified visual loss; E78.00 Pure hypercholesterolemia, unspecified; I10 Essential (primary) hypertension; Z20.822 Contact with and (suspected) exposure to COVID-19; J45.909 Unspecified asthma, uncomplicated; E86.0 Dehydration; E87.6 Hypokalemia; K57.90 Diverticulosis of intestine, part unspecified, without perforation or abscess without bleeding; Z79.4 Long term (current) use of insulin; Z79.899 Other long term (current) drug therapy
CPT/HCPCS: 36415; 80048; 80053; 81001; 82947; 85025; 87045; 87046; 87086; 87177; 87209; 87427; A9270-GY; J0696; J1815; J3480; U0002

== ENCOUNTER 2021-07-17 13:53 | Emergency (ER) | payer MEDICAID ==
--- NOTE | 2021-07-17 14:02 | EDM.PDOC ---
ED HPI GENERAL MEDICAL PROBLEM - General Stated Complaint: BLOOD IN URINE Time Seen by Provider: 07/17/21 14:01 Source of Information: Reports: Patient History Limitations: Reports: No Limitations - History of Present Illness INITIAL COMMENTS - FREE TEXT/NARRATIVE: 36-year-old male who reports that he awoke this morning around 7 AM with a spot of blood/blood clot on his Depends brief when he changed it and he was unable to urinate following this. He was having suprapubic discomfort and aching and he felt the need/urge to urinate. He had a Almodovar catheter at home post self- catheterization that he did in the past when he had urinary retention and he use that to insert into his penis and to his bladder and he drained out about 4-5 ounces of lugged with urine. Since then he has only been able to urinate in squirts and dribbles and there is always blood in it with some clots as well. He reports the urge to urinate and the lower abdominal pain has progressively worsened with time and it seems to be almost constant. It is a piercing type pain. He does have waxing and waning worsening. He has had no nausea or vomiting associated with this. There have been no fevers or chills associated with this. He rates the pain as an 8-9/10. It does not radiate. It is in his suprapubic area and his penis. It does not seem to be alleviated when he urinates. There are no exacerbating or alleviating factors. He appears in quite a bit of pain and is actually pale with the pain. No cough. No difficulty breathing. No diarrhea. He has chronic urinary problems with urinary incontinence secondary to his diabetes, he states. He states that he felt completely well yesterday through the day and last night when he went to bed. He had none of these symptoms until this morning. There are no other associated signs or symptoms. There are no other modifying factors. Onset: Today (This a.m.) Duration: Getting Worse Location: Reports: Abdomen (Suprapubic area and penis) Quality: Reports: Sharp (And piercing) Severity: Severe Improves with: Reports: None Worsens with: Reports: Other (Palpation in the suprapubic area.) Context: Reports: Other (As above.) Associated Symptoms: Reports: No Other Symptoms (Except as above.) Treatments STUDIO MODEL: Reports: Other (see below) (Nothing.) - Related Data Allergies Allergy/AdvReac Type Severity Reaction Status Date / Time No Known Allergies Allergy Verified 02/16/21 18:46 Home Meds: Home Meds Amitriptyline [Elavil] 50 mg PO BEDTIME 01/14/20 [History] Citalopram [Citalopram HBr] 20 mg PO DAILY 02/16/21 [History] Insulin Glarg,Human.Rec.Analog [Lantus Solostar] 36 unit SUBCUT BID #1 box 02/18/21 [Rx] Past Medical History HEENT History: Reports: Impaired Vision, Other (See Below) Other HEENT History: Regular astigmatism OU. Hyperopia OU. Cardiovascular History: Reports: High Cholesterol, Hypertension Respiratory History: Reports: Asthma Genitourinary History: Reports: Chronic Renal Insuffiency, Retention, Urinary, Urinary Incontinence, Other (See Below) Psychiatric History: Reports: Anxiety, Depression Endocrine/Metabolic History: Reports: Diabetes, Type II - Infectious Disease History Infectious Disease History: Reports: None - Past Surgical History GI Surgical History: Reports: None Male Surgical History: Reports: Other (See Below) (Cystoscopy) Social & Family History - Tobacco Use Tobacco Use Status *Q: Current Every Day Tobacco User - Caffeine Use Caffeine Use: Reports: Coffee, Soda - Alcohol Use Alcohol Use History: No - Living Situation & Occupation Occupation: Unemployed ED ROS GENERAL - Review of Systems Review Of Systems: See Below Constitutional: Reports: Malaise. Denies: Fever, Chills HEENT: Reports: Other (No nasal congestion.). Denies: Throat Pain Respiratory: Denies: Shortness of Breath, Cough Cardiovascular: Denies: Chest Pain, Palpitations Endocrine: Reports: Fatigue GI/Abdominal: Reports: Abdominal Pain. Denies: Nausea, Vomiting : Reports: Dysuria, Hematuria, Incontinence, Urgency Musculoskeletal: Reports: Back Pain Skin: Denies: Diaphoresis, Rash Neurological: Denies: Dizziness, Headache Hematologic/Lymphatic: Denies: Easy Bleeding, Easy Bruising ED EXAM, GENERAL - Physical Exam Exam: See Below Exam Limited By: No Limitations General Appearance: Alert, Moderate Distress, Thin, Other (Pale-appearing. Appears in pain.) Eye Exam: Bilateral Eye: EOMI, Normal Inspection, PERRL Ears: Normal External Exam, Hearing Grossly Normal Ear Exam: Bilateral Ear: Auricle Normal Nose: Normal Inspection, Normal Mucosa, No Blood Throat/Mouth: Normal Voice, No Airway Compromise, Other (Primary his membranes.) Head: Atraumatic, Normocephalic Neck: Normal Inspection, Supple, Non-Tender, Full Range of Motion Respiratory/Chest: No Respiratory Distress, Lungs Clear, Normal Breath Sounds, No Accessory Muscle Use, Chest Non-Tender Cardiovascular: Normal Peripheral Pulses, Regular Rate, Rhythm, No Murmur Peripheral Pulses: 2+: Radial (L), Radial (R), Dorsalis Pedis (L), Dorsalis Pedis (R) GI/Abdominal: Normal Bowel Sounds, Soft, No Distention, No Mass, Tender (In suprapubic area.), Other (Scaphoid abdomen) (Male) Exam: No Hernia Extremities: Normal Inspection, Normal Range of Motion, Non-Tender, No Pedal Edema, Normal Capillary Refill Neurological: Alert, Oriented, CN II-XII Intact, Normal Cognition, No Motor/Sensory Deficits Skin Exam: Warm, Dry, Intact, No Rash, Pallor Course - Vital Signs Last Recorded V/S: Last Vital Signs Temp 35.9 C L 07/17/21 13:53 Pulse 119 H 07/17/21 13:53 Resp 19 07/17/21 13:53 BP 124/88 07/17/21 13:53 Pulse Ox 100 07/17/21 13:53 - Orders/Labs/Meds Orders: Active Orders 24 hr Category Date Time Status Bladder Irrigation [RC] CONTINUOUS Care 07/17/21 18:34 Active Bladder Irrigation [RC] ONETIME Care 07/17/21 14:46 Active Bladder Scan [RC] ONETIME Care 07/17/21 14:46 Active Insert Urinary Catheter [OM.PC] CONTINUOUS Care 07/17/21 14:45 Ordered Urinary Catheter Assessment [RC] QSHIFT Care 07/17/21 14:42 Active Abdomen Pelvis wo Cont [CT] Stat Exams 07/17/21 16:24 Taken CULTURE BLOOD [BC] Urgent Lab 07/17/21 18:00 Received CULTURE BLOOD [BC] Urgent Lab 07/17/21 18:00 Received CULTURE URINE [RM] Stat Lab 07/17/21 15:00 Received Sodium Chloride 0.9% [Normal Saline] 1,000 ml Med 07/17/21 18:15 Active IV ASDIRECTED Sodium Chloride 0.9% [Saline Flush] Med 07/17/21 14:41 Active 10 ml FLUSH ASDIRECTED PRN Blood Culture x2 Reflex Set [OM.PC] Urgent Oth 07/17/21 17:54 Ordered Peripheral IV Insertion Adult [OM.PC] Routine Oth 07/17/21 14:41 Ordered Medication Orders Sodium Chloride (Normal Saline) 1,000 mls @ 150 mls/hr IV ASDIRECTED [facility] Last Admin: 07/17/21 18:20 Dose: 150 mls/hr Documented by: MERVIN Sodium Chloride (Sodium Chloride 0.9% 10 Ml Syringe) 10 ml FLUSH ASDIRECTED PRN PRN Reason: Keep Vein Open Labs: Laboratory Tests 07/17/21 07/17/21 07/17/21 Range/Units 15:00 15:00 15:00 WBC 19.1 H (3.2-10.1) x10-3/uL RBC 3.85 L (3.90-5.90) x10(6)uL Hgb 11.1 L (12.9-17.7) g/dL Hct 33.8 L (38.3-50.1) % MCV 87.8 (80.8-98.7) fL MCH 28.9 (27.0-33.3) pg MCHC 32.9 (28.7-35.3) g/dL RDW 13.9 (12.4-15.0) % Plt Count 668 H (117-477) x10(3)uL MPV 6.5 L (6.7-11.0) fL Add Manual Diff Yes Neutrophils % (Manual) 82 (46-82) % Band Neutrophils % 4 (0-6) % Lymphocytes % (Manual) 9 L (13-37) % Monocytes % (Manual) 5 (4-12) % Sodium 129 L D (135-145) mmol/L Potassium 4.8 (3.5-5.3) mmol/L Chloride 99 L D (100-110) mmol/L Carbon Dioxide 20 L (21-32) mmol/L BUN 15 (7-18) mg/dL Creatinine 2.1 H* (0.70-1.30) mg/dL Est Cr Clr Drug Dosing 45.67 mL/min Estimated GFR (MDRD) 36 L (>60) BUN/Creatinine Ratio 7.1 L (9-20) Glucose 324 H D (80-116) mg/dL Lactic Acid (0.4-2.0) mmol/L Calcium 8.6 (8.6-10.2) mg/dL Total Bilirubin 0.3 (0.1-1.3) mg/dL AST 10 D (5-25) IU/L ALT 14 (12-36) U/L Alkaline Phosphatase 113 H (56-112) IU/L C-Reactive Protein (0.5-0.9) mg/dL Total Protein 8.6 H (6.0-8.0) g/dL Albumin 3.2 L (3.5-5.2) g/dL Globulin 5.4 g/dL Albumin/Globulin Ratio 0.6 Urine Color Red (YELLOW) Urine Appearance Turbid (CLEAR) Urine pH 7.0 H (5.0-6.5) Ur Specific [place] 1.010 (1.010-1.025) Urine Protein 500 H (NEGATIVE) mg/dL Urine Glucose (UA) 250 H (NORMAL) mg/dL Urine Ketones Negative (NEGATIVE) mg/dL Urine Occult Blood Large H (NEGATIVE) Urine Nitrite Negative (NEGATIVE) Urine Bilirubin Negative (NEGATIVE) Urine Urobilinogen Normal (NEGATIVE) mg/dL Ur Leukocyte Esterase Small H (NEGATIVE) Urine RBC Packed H (0-5) SARS-CoV-2 RNA (SHARDA) (NEGATIVE) 07/17/21 07/17/21 07/17/21 Range/Units 15:00 18:00 18:45 WBC (3.2-10.1) x10-3/uL RBC (3.90-5.90) x10(6)uL Hgb (12.9-17.7) g/dL Hct (38.3-50.1) % MCV (80.8-98.7) fL MCH (27.0-33.3) pg MCHC (28.7-35.3) g/dL RDW (12.4-15.0) % Plt Count (117-477) x10(3)uL MPV (6.7-11.0) fL Add Manual Diff Neutrophils % (Manual) (46-82) % Band Neutrophils % (0-6) % Lymphocytes % (Manual) (13-37) % Monocytes % (Manual) (4-12) % Sodium (135-145) mmol/L Potassium (3.5-5.3) mmol/L Chloride (100-110) mmol/L Carbon Dioxide (21-32) mmol/L BUN (7-18) mg/dL Creatinine (0.70-1.30) mg/dL Est Cr Clr Drug Dosing mL/min Estimated GFR (MDRD) (>60) BUN/Creatinine Ratio (9-20) Glucose (80-116) mg/dL Lactic Acid 1.4 (0.4-2.0) mmol/L Calcium (8.6-10.2) mg/dL Total Bilirubin (0.1-1.3) mg/dL AST (5-25) IU/L ALT (12-36) U/L Alkaline Phosphatase (56-112) IU/L C-Reactive Protein 0.4 L (0.5-0.9) mg/dL Total Protein (6.0-8.0) g/dL Albumin (3.5-5.2) g/dL Globulin g/dL Albumin/Globulin Ratio Urine Color (YELLOW) Urine Appearance (CLEAR) Urine pH (5.0-6.5) Ur Specific [place] (1.010-1.025) Urine Protein (NEGATIVE) mg/dL Urine Glucose (UA) (NORMAL) mg/dL Urine Ketones (NEGATIVE) mg/dL Urine Occult Blood (NEGATIVE) Urine Nitrite (NEGATIVE) Urine Bilirubin (NEGATIVE) Urine Urobilinogen (NEGATIVE) mg/dL Ur Leukocyte Esterase (NEGATIVE) Urine RBC (0-5) SARS-CoV-2 RNA (SHARDA) Negative (NEGATIVE) Meds: Medications Generic Name Dose Route Start Last Admin Trade Name Freq PRN Reason Stop Dose Admin Sodium Chloride 1,000 mls @ 150 mls/hr 07/17/21 18:15 07/17/21 18:20 Normal Saline IV 150 mls/hr ASDIRECTED KAMRAN Administration Sodium Chloride 10 ml 07/17/21 14:41 Sodium Chloride 0.9% 10 Ml Syringe FLUSH ASDIRECTED PRN Keep Vein Open Discontinued Medications Generic Name Dose Route Start Last Admin Trade Name Freq PRN Reason Stop Dose Admin Hydromorphone HCl 1 mg 07/17/21 14:43 07/17/21 14:51 Hydromorphone 2 Mg/Ml Sdv IVPUSH 07/17/21 14:44 1 mg ONETIME ONE Administration Hydromorphone HCl 1 mg 07/17/21 17:26 07/17/21 17:30 Hydromorphone 2 Mg/Ml Sdv IVPUSH 07/17/21 17:27 1 mg ONETIME ONE Administration Sodium Chloride 1,000 mls @ 999 mls/hr 07/17/21 14:43 07/17/21 15:30 Normal Saline IV 07/17/21 15:43 999 mls/hr .BOLUS ONE Administration Piperacillin Sod/Tazobactam 50 mls @ 100 mls/hr 07/17/21 17:56 07/17/21 18:21 Sod 3.375 gm/ Sodium Chloride IV 07/17/21 18:25 100 mls/hr ONETIME ONE Administration Vancomycin HCl 1.25 gm/ Premix 250 mls @ 250 mls/hr 07/17/21 17:55 07/17/21 19:02 IV 07/17/21 17:56 250 mls/hr ONETIME ONE Administration Lidocaine HCl 10 ml 07/17/21 14:45 07/17/21 15:07 Lidocaine 2% Hcl 6 Ml Jel.Pf.Noelle .XX 07/17/21 14:46 10 ml ONETIME ONE Administration Ondansetron HCl 4 mg 07/17/21 14:43 07/17/21 14:50 Ondansetron 4 Mg/2 Ml Sdv IVPUSH 07/17/21 14:44 4 mg ONETIME ONE Administration - Radiology Interpretation Free Text/Narrative:: CT scan of the abdomen and pelvis without IV contrast shows severe bilateral hydronephrosis. There is also diffuse urinary bladder wall thickening with possible chronic bladder outlet obstruction. This was per the [facility] radiologist. I personally reviewed the films and did compare this CT to a CT scan was performed in 2019 at our institution and the bilateral hydronephrosis is worse than it was back then. - Re-Assessments/Exams Free Text/Narrative Re-Assessment/Exam: 07/17/21 16:18: 24 [place] 3-way Almodovar catheter has been placed. The nursing staff are currently irrigating this catheter. They did get some clots out. There really wasn't a lot of urine in the bladder. His urine is still quite bloody. White blood cell count is 19.1. Hemoglobin is 11.1. Platelet count is 668K. sodium is 129. Potassium is 4.8. Bicarbonate is 20. BUN is 15 and creatinine is 2.1. Glucose is 324. CRP is 0.4. LFTs are normal. Urinalysis shows packed field of red cells with leukocyte esterase positive. This was sent for culture. Because of the patient's pain and hematuria, I am sending him for CT scan of his abdomen and pelvis without IV contrast. With the irrigation, the nurse is finding that the clots have cleared and the urine is clearing up as well. I will have her hold the irrigation for now and we will get the CT scan of the abdomen and pelvis. 07/17/21 17:59: The patient has severe bilateral hydronephrosis. He is having ongoing pain in his abdomen and flanks now. He is continued gross hematuria. He has remained somewhat tachycardic but his blood pressure is remaining stable. He still looks quite uncomfortable. He has received Dilaudid 2 mg IV. I will order blood cultures 2 and also a lactic acid and I will treat the patient was Zosyn and vancomycin. I am concerned with the marked bilateral hydronephrosis, his renal insufficiency that seems to be worsening, his infection and the uncontrolled pain that he is having, he will need urology specialty services which are not available at [facility]. I guess all this with the patient and I will call and discuss the patient's case with the urologist at [facility] in [place]. 07/17/21 18:36: I discussed the patient's case with Dr. Andrade, hospitalist at [facility] in [place], he has agreed to accept the patient in transfer. He has asked that I initiate CBI. The patient does have a [address] We will initiate at a low rate to keep the urine mostly clear. Departure - Departure Time of Disposition: 19:55 Disposition: DC/Tfer to Acute Hospital 02 Condition: Fair Clinical Impression: Bilateral hydronephrosis, Pyelonephritis, acute, Acute kidney injury, Gross hematuria - Discharge Information Referrals: Yennifer Marino NP [Primary Care Provider] - Sepsis Event Note (ED) - Focused Exam Vital Signs: Vital Signs Temp Pulse Resp BP Pulse Ox 07/17/21 13:53 35.9 C L 119 H 19 124/88 100 - My Orders Last 24 Hours: My Active Orders 07/17/21 14:41 Sodium Chloride 0.9% [Saline Flush] 10 ml FLUSH ASDIRECTED PRN Peripheral IV Insertion Adult [OM.PC] Routine 07/17/21 14:42 Urinary Catheter Assessment [RC] QSHIFT 07/17/21 14:45 Insert Urinary Catheter [OM.PC] CONTINUOUS 07/17/21 14:46 Bladder Irrigation [RC] ONETIME Bladder Scan [RC] ONETIME 07/17/21 15:00 CULTURE URINE [RM] Stat 07/17/21 16:24 Abdomen Pelvis wo Cont [CT] Stat 07/17/21 17:54 Blood Culture x2 Reflex Set [OM.PC] Urgent 07/17/21 18:00 CULTURE BLOOD [BC] Urgent CULTURE BLOOD [BC] Urgent 07/17/21 18:15 Sodium Chloride 0.9% [Normal Saline] 1,000 ml IV ASDIRECTED 07/17/21 18:34 Bladder Irrigation [RC] CONTINUOUS - Assessment/Plan Last 24 Hours: My Active Orders 07/17/21 14:41 Sodium Chloride 0.9% [Saline Flush] 10 ml FLUSH ASDIRECTED PRN Peripheral IV Insertion Adult [OM.PC] Routine 07/17/21 14:42 Urinary Catheter Assessment [RC] QSHIFT 07/17/21 14:45 Insert Urinary Catheter [OM.PC] CONTINUOUS 07/17/21 14:46 Bladder Irrigation [RC] ONETIME Bladder Scan [RC] ONETIME 07/17/21 15:00 CULTURE URINE [RM] Stat 07/17/21 16:24 Abdomen Pelvis wo Cont [CT] Stat 07/17/21 17:54 Blood Culture x2 Reflex Set [OM.PC] Urgent 07/17/21 18:00 CULTURE BLOOD [BC] Urgent CULTURE BLOOD [BC] Urgent 07/17/21 18:15 Sodium Chloride 0.9% [Normal Saline] 1,000 ml IV ASDIRECTED 07/17/21 18:34 Bladder Irrigation [RC] CONTINUOUS
[2021-07-17] MEDS ORDERED: Sodium Chloride 0.9% 10 ML Syringe FLUSH PRN (14:41)
[2021-07-17] MEDS ORDERED: HYDROmorphone 2 MG/ML SDV IVPUSH ONE ×2 (14:43→17:26)
[2021-07-17] MEDS ORDERED: Ondansetron 4 MG/2 ML SDV IVPUSH ONE (14:43)
[2021-07-17] MEDS ORDERED: Sodium Chloride 0.9% 1,000 ML IV ONE (14:43)
[2021-07-17] MEDS ORDERED: Lidocaine 2% HCl 6 ML JEL.PF.APP ONE (14:45)
[2021-07-17] MEDS ORDERED: VANCOmycin 1.25 GM/250 ML 1.25 GM in Premix Bag 1 BAG IV ONE (17:55)
[2021-07-17] MEDS ORDERED: Piperacillin/Tazobactam 3.375 GM in Sodium Chloride 0.9% 50 ML IV ONE (17:56)
[2021-07-17] MEDS ORDERED: Sodium Chloride 0.9% 1,000 ML IV SCH (18:15)
== END 2021-07-17 20:01 ==
LOC: FB.ED 13:53
DX: N10 Acute pyelonephritis (principal); N13.30 Unspecified hydronephrosis; R31.0 Gross hematuria; N17.9 Acute kidney failure, unspecified; E78.00 Pure hypercholesterolemia, unspecified; I12.9 Hypertensive chronic kidney disease with stage 1 through stage 4 chronic kidney disease, or unspecified chronic kidney disease; E11.22 Type 2 diabetes mellitus with diabetic chronic kidney disease; N18.9 Chronic kidney disease, unspecified; Z79.4 Long term (current) use of insulin; Z20.822 Contact with and (suspected) exposure to COVID-19
CPT/HCPCS: 36415; 51702; 74176; 80053; 81001; 83605; 85025; 86140; 87040; 87086; 87635; 96365; 96367; 96375; 96376; 99285; A9270; J1170; J2405; J2543; J3370; J7030; U0002

== ENCOUNTER 2021-09-29 18:30 | Emergency (ER) | payer MEDICAID ==
[2021-09-29] MEDS ORDERED: Sodium Chloride 0.9% 10 ML Syringe FLUSH PRN (18:35)
[2021-09-29] MEDS ORDERED: Sodium Chloride 0.9% 1,000 ML IV ONE (18:36)
[2021-09-29] MEDS ORDERED: 50% Dextrose in Water 50 ML Syringe IVPUSH PRN (18:37)
[2021-09-29] MEDS ORDERED: Insulin Lispro 100 Unit/ML 3 ML KwikPen SUBCUT ONE (18:37)
[2021-09-29] MEDS ORDERED: Glucagon,Human Recombinant 1 MG Vial IM PRN (18:37)
[2021-09-29 19:01] LABS: BASE EXCESS VENOUS,POC -3 mmol/L (-2 - 3+); PCO2 VENOUS,POC 43 mmHg (41-51); PH VENOUS,POC 7.33 pH Units (7.32-7.43)
[2021-09-29] MEDS ORDERED: Ondansetron 4 MG/2 ML SDV IVPUSH STA (19:09)
[2021-09-29] MEDS ORDERED: Meclizine 25 MG Tab PO STA (19:09)
[2021-09-29] MEDS ORDERED: Insulin Regular in 0.9 % NACL 100 ML IV SCH (20:15)
== END 2021-09-29 20:45 ==
LOC: FB.ED 18:30
DX: N17.9 Acute kidney failure, unspecified (principal); E11.65 Type 2 diabetes mellitus with hyperglycemia; E86.0 Dehydration; E78.00 Pure hypercholesterolemia, unspecified; Z79.4 Long term (current) use of insulin; Z20.822 Contact with and (suspected) exposure to COVID-19; Z72.0 Tobacco use
CPT/HCPCS: 36415; 71045; 80053; 82947; 84484; 85025; 87635; 93005; 96374; 99285; A9270; J1815; J2405; J7030; U0002

== ENCOUNTER 2021-10-26 16:48 | Emergency (ER) | payer MEDICAID ==
[2021-10-26] MEDS ORDERED: Cephalexin 500 MG Cap PO STA (21:33)
== END 2021-10-26 16:50 | disposition home or self-care (01) ==
LOC: FB.ED 16:48
DX: N39.0 Urinary tract infection, site not specified (principal); E78.00 Pure hypercholesterolemia, unspecified; I12.9 Hypertensive chronic kidney disease with stage 1 through stage 4 chronic kidney disease, or unspecified chronic kidney disease; E11.22 Type 2 diabetes mellitus with diabetic chronic kidney disease; N18.9 Chronic kidney disease, unspecified; Z79.4 Long term (current) use of insulin
CPT/HCPCS: 36415; 74176; 80048; 81001; 85025; 87086; 99284; A9270

== ENCOUNTER 2021-12-08 09:22 | Inpatient (IN) | payer MEDICAID ==
[2021-12-08] MEDS ORDERED: Insulin Regular in 0.9 % NACL 100 ML IV SCH (09:30)
[2021-12-08] MEDS: Sodium Chloride 0.9% 1,000 ML IV SCH ×2 (09:41→11:31)
[2021-12-08 10:23] LABS: BASE EXCESS VENOUS,POC 2 mmol/L (-2 - 3+); PCO2 VENOUS,POC 45 mmHg (41-51); PH VENOUS,POC 7.39 pH Units (7.32-7.43)
[2021-12-08] MEDS ORDERED: fentaNYL 100 MCG/2 ML SDV IVPUSH ONE (10:39)
[2021-12-08] MEDS ORDERED: cefTRIAXone 1 GM Vial IVPUSH ONE (11:39)
[2021-12-08] MEDS ORDERED: HYDROmorphone 2 MG/ML SDV IVPUSH PRN (13:31)
[2021-12-08] MEDS ORDERED: Glucagon,Human Recombinant 1 MG Vial IM PRN (13:41)
[2021-12-08] MEDS ORDERED: 50% Dextrose in Water 50 ML Syringe IVPUSH PRN (13:41)
[2021-12-08] MEDS ORDERED: Acetaminophen 500 MG Tab PO SCH (14:00)
[2021-12-08] MEDS ORDERED: Polyethylene Glycol 3350 Powder 17 GM Packet PO PRN (14:03)
[2021-12-08] MEDS ORDERED: Oxybutynin 5 MG Tab PO PRN (14:33)
[2021-12-08] MEDS: Loperamide 2 MG Cap PO PRN ×2 (14:46→22:38)
[2021-12-08] MEDS ORDERED: Insulin Lispro 100 Unit/ML 3 ML KwikPen SUBCUT ONE (15:09)
[2021-12-08] MEDS: Lactated Ringers 1,000 ML IV SCH ×2 (15:23→22:37)
[2021-12-08] MEDS: Insulin Lispro 100 Unit/ML 3 ML KwikPen SUBCUT SCH ×4 (15:27→22:29)
[2021-12-08] MEDS ORDERED: Sodium Chloride 0.9% 10 ML Syringe FLUSH PRN (16:03)
[2021-12-08] MEDS: oxyCODONE 5 MG Tab PO PRN ×2 (19:04→22:55)
[2021-12-08] MEDS ORDERED: Insulin Glargine,Human Rec. Analog 100 Units/ML 3 ML Pen SUBCUT ONE (19:40)
[2021-12-08] MEDS: Amitriptyline 25 MG Tab PO SCH (20:13)
[2021-12-08] MEDS: Acetaminophen 500 MG Tab PO SCH (20:14)
[2021-12-08] MEDS: Insulin Glargine,Human Rec. Analog 100 Units/ML 3 ML Pen SUBCUT SCH (22:30)
[2021-12-09] MEDS: Insulin Lispro 100 Unit/ML 3 ML KwikPen SUBCUT SCH ×6 (02:06→20:14)
[2021-12-09] MEDS: oxyCODONE 5 MG Tab PO PRN ×4 (02:59→22:51)
[2021-12-09] MEDS: Acetaminophen 500 MG Tab PO SCH ×3 (03:00→20:08)
[2021-12-09] MEDS: Lactated Ringers 1,000 ML IV SCH (05:14)
[2021-12-09] MEDS: Sodium Chloride 0.9% 1,000 ML IV SCH ×2 (08:52→16:55)
[2021-12-09] MEDS ORDERED: Polyethylene Glycol 3350 Powder 17 GM Packet PO SCH (09:00)
[2021-12-09] MEDS: Citalopram 20 MG Tab PO SCH (10:31)
[2021-12-09] MEDS ORDERED: cefTRIAXone 1 GM Vial IV SCH (12:00)
[2021-12-09] MEDS ORDERED: cefTRIAXone 1 GM in Sodium Chloride 0.9% 50 ML IV SCH (12:00)
[2021-12-09] MEDS: Loperamide 2 MG Cap PO PRN ×2 (14:03→20:15)
[2021-12-09] MEDS: hydrOXYzine HCl 25 MG Tab PO PRN (14:26)
[2021-12-09] MEDS: Amitriptyline 25 MG Tab PO SCH (20:09)
[2021-12-09] MEDS: Insulin Glargine,Human Rec. Analog 100 Units/ML 3 ML Pen SUBCUT SCH (20:11)
[2021-12-10] MEDS: Sodium Chloride 0.9% 1,000 ML IV SCH ×3 (01:01→20:09)
[2021-12-10] MEDS: Acetaminophen 500 MG Tab PO SCH ×3 (04:21→20:10)
[2021-12-10] MEDS: Loperamide 2 MG Cap PO PRN ×3 (04:22→20:27)
[2021-12-10] MEDS: oxyCODONE 5 MG Tab PO PRN ×3 (08:48→20:10)
[2021-12-10] MEDS: Citalopram 20 MG Tab PO SCH (08:48)
[2021-12-10] MEDS: Insulin Lispro 100 Unit/ML 3 ML KwikPen SUBCUT SCH ×3 (11:49→19:52)
[2021-12-10] MEDS: hydrOXYzine HCl 25 MG Tab PO PRN (12:12)
[2021-12-10] MEDS ORDERED: Ondansetron 4 MG/2 ML SDV IVPUSH PRN (13:59)
[2021-12-10] MEDS: HYDROmorphone 2 MG/ML SDV IVPUSH PRN ×2 (15:59→22:48)
[2021-12-10] MEDS: Amitriptyline 25 MG Tab PO SCH (20:10)
[2021-12-10] MEDS: Insulin Glargine,Human Rec. Analog 100 Units/ML 3 ML Pen SUBCUT SCH (20:13)
[2021-12-11] MEDS: hydrOXYzine HCl 25 MG Tab PO PRN ×2 (00:27→13:41)
[2021-12-11] MEDS: Acetaminophen 500 MG Tab PO SCH ×3 (05:07→20:53)
[2021-12-11] MEDS: Sodium Chloride 0.9% 1,000 ML IV SCH ×2 (05:12→23:57)
[2021-12-11] MEDS: oxyCODONE 5 MG Tab PO PRN (07:22)
[2021-12-11] MEDS: Insulin Lispro 100 Unit/ML 3 ML KwikPen SUBCUT SCH ×3 (07:24→18:34)
[2021-12-11] MEDS: HYDROmorphone 2 MG/ML SDV IVPUSH PRN ×3 (10:02→22:34)
[2021-12-11] MEDS: Citalopram 20 MG Tab PO SCH (10:02)
[2021-12-11] MEDS: Loperamide 2 MG Cap PO PRN (13:41)
[2021-12-11] MEDS: Amitriptyline 25 MG Tab PO SCH (20:55)
[2021-12-11] MEDS: Insulin Glargine,Human Rec. Analog 100 Units/ML 3 ML Pen SUBCUT SCH (20:57)
[2021-12-11] MEDS ORDERED: Celecoxib 200 MG Cap PO SCH (21:00)
[2021-12-12] MEDS: Acetaminophen 500 MG Tab PO SCH ×3 (04:57→20:41)
[2021-12-12] MEDS: HYDROmorphone 2 MG/ML SDV IVPUSH PRN ×2 (04:59→22:28)
[2021-12-12] MEDS: Insulin Lispro 100 Unit/ML 3 ML KwikPen SUBCUT SCH ×3 (10:00→17:59)
[2021-12-12] MEDS: Citalopram 20 MG Tab PO SCH (10:01)
[2021-12-12] MEDS: Sodium Chloride 0.9% 1,000 ML IV SCH ×2 (10:02→20:35)
[2021-12-12] MEDS: oxyCODONE 5 MG Tab PO PRN ×3 (10:05→18:06)
[2021-12-12] MEDS: Loperamide 2 MG Cap PO PRN (10:49)
[2021-12-12] MEDS: hydrOXYzine HCl 25 MG Tab PO PRN ×2 (10:49→18:05)
[2021-12-12] MEDS: Insulin Glargine,Human Rec. Analog 100 Units/ML 3 ML Pen SUBCUT SCH (20:38)
[2021-12-12] MEDS: Amitriptyline 25 MG Tab PO SCH (20:43)
[2021-12-12] MEDS ORDERED: Loperamide 2 MG Cap PO ONE (20:54)
[2021-12-13] MEDS: hydrOXYzine HCl 25 MG Tab PO PRN (00:09)
[2021-12-13] MEDS: Acetaminophen 500 MG Tab PO SCH ×2 (04:24→15:13)
[2021-12-13] MEDS: oxyCODONE 5 MG Tab PO PRN ×2 (04:25→11:40)
[2021-12-13] MEDS: Insulin Lispro 100 Unit/ML 3 ML KwikPen SUBCUT SCH ×2 (09:07→15:12)
[2021-12-13] MEDS: Citalopram 20 MG Tab PO SCH (09:12)
[2021-12-13] MEDS ORDERED: Insulin Glargine,Human Rec. Analog 100 Units/ML 3 ML Pen SUBCUT SCH (21:00)
== END 2021-12-13 11:55 | disposition home or self-care (01) | DRG 638 ==
LOC: FB.ED 09:22 → FB.MS 11:04
PROVIDERS: ADMIT Family Medicine; ATTEND Family Medicine
DX: E10.65 Type 1 diabetes mellitus with hyperglycemia (principal); S42.342A Displaced spiral fracture of shaft of humerus, left arm, initial encounter for closed fracture; N17.9 Acute kidney failure, unspecified; E87.1 Hypo-osmolality and hyponatremia; Z20.822 Contact with and (suspected) exposure to COVID-19; E86.0 Dehydration; D72.829 Elevated white blood cell count, unspecified; N31.9 Neuromuscular dysfunction of bladder, unspecified; E78.00 Pure hypercholesterolemia, unspecified; J45.909 Unspecified asthma, uncomplicated; D64.9 Anemia, unspecified; F41.9 Anxiety disorder, unspecified; F32.A Depression, unspecified; E10.40 Type 1 diabetes mellitus with diabetic neuropathy, unspecified; F17.200 Nicotine dependence, unspecified, uncomplicated; K52.9 Noninfective gastroenteritis and colitis, unspecified; N18.9 Chronic kidney disease, unspecified; I12.9 Hypertensive chronic kidney disease with stage 1 through stage 4 chronic kidney disease, or unspecified chronic kidney disease; E10.22 Type 1 diabetes mellitus with diabetic chronic kidney disease; Z78.9 Other specified health status; W19.XXXA Unspecified fall, initial encounter
CPT/HCPCS: 36415; 71045; 73020-LT; 73030-LT; 80048; 80053; 81001; 82947; 83605; 83735; 84484; 85014; 85018; 85025; 87040; 87086; 93005; 93010; 96374; 96375; 97162-GP; 97165-GO; 97530-GO; 97530-GP; 97535-GO; 99222; 99232; 99238; 99284; 99285-25; A9270-GY; J0696; J1170; J1815; J1815-GY; J3010; J7030; J7120; U0002

== ENCOUNTER 2022-01-29 21:36 | Inpatient (IN) | payer MEDICAID ==
[2022-01-29] MEDS: Sodium Chloride 0.9% 10 ML Syringe FLUSH PRN (21:55)
[2022-01-29] MEDS ORDERED: Sodium Chloride 0.9% 1,000 ML IV SCH (22:00)
[2022-01-29 23:12] LABS: ESTIMATED GFR 19 (>60)
[2022-01-29] MEDS ORDERED: Ondansetron 4 MG/2 ML SDV IV PRN (23:41)
[2022-01-29] MEDS ORDERED: cefTRIAXone 1 GM in Sodium Chloride 0.9% 50 ML IV SCH (23:45)
[2022-01-29] MEDS ORDERED: NS + KCl 20mEq/L 1,000 ML IV SCH (23:45)
[2022-01-29] MEDS ORDERED: 50% Dextrose in Water 50 ML Syringe IVPUSH PRN (23:52)
[2022-01-29] MEDS ORDERED: Glucagon,Human Recombinant 1 MG Vial IM PRN (23:52)
[2022-01-29] MEDS ORDERED: NS + KCl 20mEq/L 1,000 ML ONE (23:54)
[2022-01-30] MEDS: Melatonin 3 MG Tab PO SCH ×2 (00:40→21:13)
[2022-01-30] MEDS: Atropine/Diphenoxylate 0.025-2.5 MG Tab PO PRN ×5 (00:40→19:42)
[2022-01-30] MEDS: cefTRIAXone 1 GM Vial IVPUSH SCH (00:41)
[2022-01-30] MEDS: Enoxaparin 30 MG/0.3 ML Syringe SUBCUT SCH ×2 (00:41→23:12)
[2022-01-30 07:01] LABS: ESTIMATED GFR 21 (>60)
[2022-01-30] MEDS ORDERED: Insulin Lispro 100 Unit/ML 3 ML KwikPen SUBCUT ONE (07:45)
[2022-01-30] MEDS ORDERED: Insulin Lispro 100 Unit/ML 3 ML KwikPen SUBCUT SCH ×2 (08:00→12:00)
[2022-01-30] MEDS: Citalopram 20 MG Tab PO SCH (09:12)
[2022-01-30] MEDS ORDERED: 50% Dextrose in Water 50 ML Syringe IVPUSH PRN (11:14)
[2022-01-30] MEDS ORDERED: Glucagon,Human Recombinant 1 MG Vial IM PRN (11:14)
[2022-01-30] MEDS: Sodium Chloride 0.9% 1,000 ML IV SCH (11:19)
[2022-01-30] MEDS: Insulin Lispro 100 Unit/ML 3 ML KwikPen SUBCUT SCH ×3 (11:20→17:30)
[2022-01-30] MEDS: Nicotine Polacrilex 2 MG Gum CHEW PRN ×2 (14:11→18:57)
[2022-01-30] MEDS ORDERED: oxyCODONE 5 MG Tab PO PRN (16:15)
[2022-01-30] MEDS: Acetaminophen 325 MG Tab PO PRN (16:38)
[2022-01-30] MEDS ORDERED: Melatonin 3 MG Tab PO SCH (21:00)
[2022-01-30] MEDS ORDERED: Insulin Glargine,Human Rec. Analog 100 Units/ML 3 ML Pen SUBCUT SCH (21:00)
[2022-01-30] MEDS ORDERED: Insulin Glargine,Human Rec. Analog 100 Units/ML 3 ML Pen SUBCUT ONE (21:03)
[2022-01-30] MEDS: Insulin Glargine,Human Rec. Analog 100 Units/ML 3 ML Pen SUBCUT SCH (21:13)
[2022-01-30] MEDS: Amitriptyline 25 MG Tab PO SCH (21:13)
[2022-01-31] MEDS: cefTRIAXone 1 GM Vial IVPUSH SCH ×2 (00:09→23:30)
[2022-01-31] MEDS: Sodium Chloride 0.9% 1,000 ML IV SCH (00:10)
[2022-01-31] MEDS: Acetaminophen 325 MG Tab PO PRN (00:20)
[2022-01-31] MEDS ORDERED: Acetaminophen/HYDROcodone 325-5 MG Tab PO PRN (08:12)
[2022-01-31] MEDS: Insulin Lispro 100 Unit/ML 3 ML KwikPen SUBCUT SCH ×3 (08:29→18:13)
[2022-01-31] MEDS: Citalopram 20 MG Tab PO SCH (08:33)
[2022-01-31] MEDS ORDERED: Loperamide 2 MG Cap PO PRN ×2 (09:06→16:55)
[2022-01-31] MEDS ORDERED: oxyCODONE 5 MG Tab PO PRN (09:09)
[2022-01-31 10:16] LABS: ESTIMATED GFR 23 (>60)
[2022-01-31] MEDS: Psyllium 0.52 GM Cap PO SCH (10:18)
[2022-01-31] MEDS: Saccharomyces Boulardii (Probiotic) 250 MG Cap PO SCH ×2 (10:19→21:17)
[2022-01-31] MEDS ORDERED: Loperamide 2 MG Cap PO ONE (13:27)
[2022-01-31] MEDS: Nicotine Polacrilex 2 MG Gum CHEW PRN (14:22)
[2022-01-31] MEDS ORDERED: Atropine/Diphenoxylate 0.025-2.5 MG Tab PO PRN (16:56)
[2022-01-31] MEDS: Loperamide 2 MG Cap PO PRN (18:12)
[2022-01-31] MEDS ORDERED: hydrOXYzine HCl 25 MG Tab PO PRN (21:00)
[2022-01-31] MEDS: Amitriptyline 25 MG Tab PO SCH (21:16)
[2022-01-31] MEDS: Melatonin 3 MG Tab PO SCH (21:17)
[2022-01-31] MEDS: Insulin Glargine,Human Rec. Analog 100 Units/ML 3 ML Pen SUBCUT SCH (21:20)
[2022-01-31] MEDS: Sodium Chloride 0.9% 10 ML Syringe FLUSH PRN ×2 (21:29→23:32)
[2022-01-31] MEDS: Enoxaparin 30 MG/0.3 ML Syringe SUBCUT SCH (23:20)
[2022-02-01 06:18] LABS: ESTIMATED GFR 24 (>60)
[2022-02-01] MEDS: Saccharomyces Boulardii (Probiotic) 250 MG Cap PO SCH ×2 (08:03→20:01)
[2022-02-01] MEDS: Citalopram 20 MG Tab PO SCH (08:03)
[2022-02-01] MEDS: Psyllium 0.52 GM Cap PO SCH (08:03)
[2022-02-01] MEDS: Insulin Lispro 100 Unit/ML 3 ML KwikPen SUBCUT SCH ×3 (08:06→18:14)
[2022-02-01] MEDS ORDERED: cefTRIAXone 1 GM Vial IVPUSH ONE ×2 (09:00→09:45)
[2022-02-01] MEDS: Loperamide 2 MG Cap PO PRN ×3 (09:00→18:58)
[2022-02-01] MEDS: Nicotine Polacrilex 2 MG Gum CHEW PRN (09:25)
[2022-02-01] MEDS: Sodium Chloride 0.9% 10 ML Syringe FLUSH PRN ×2 (09:25→11:00)
[2022-02-01] MEDS: Melatonin 3 MG Tab PO SCH (20:00)
[2022-02-01] MEDS: Amitriptyline 25 MG Tab PO SCH (20:01)
[2022-02-01] MEDS: Insulin Glargine,Human Rec. Analog 100 Units/ML 3 ML Pen SUBCUT SCH (20:01)
[2022-02-01] MEDS ORDERED: Enoxaparin 30 MG/0.3 ML Syringe SUBCUT SCH (21:00)
[2022-02-02 06:46] LABS: ESTIMATED GFR 26 mL/min (>60)
[2022-02-02] MEDS: Insulin Lispro 100 Unit/ML 3 ML KwikPen SUBCUT SCH ×2 (07:55→11:53)
[2022-02-02] MEDS: Psyllium 0.52 GM Cap PO SCH (08:00)
[2022-02-02] MEDS: Sodium Chloride 0.9% 10 ML Syringe FLUSH PRN ×2 (08:00→08:11)
[2022-02-02] MEDS: Citalopram 20 MG Tab PO SCH (08:00)
[2022-02-02] MEDS: Saccharomyces Boulardii (Probiotic) 250 MG Cap PO SCH (08:01)
[2022-02-02] MEDS ORDERED: cefTRIAXone 2 GM Vial IVPUSH SCH (09:00)
== END 2022-02-02 13:25 | disposition home or self-care (01) | DRG 699 ==
LOC: FB.ED 21:36 → FB.MS 23:41 → OBSVTOIN 01-31 11:17
PROVIDERS: ADMIT Student in an Organized Health Care Education/Training Program; ATTEND Family Medicine
DX: T83.510A Infection and inflammatory reaction due to cystostomy catheter, initial encounter (principal); E87.1 Hypo-osmolality and hyponatremia; N39.0 Urinary tract infection, site not specified; R78.81 Bacteremia; K52.9 Noninfective gastroenteritis and colitis, unspecified; R79.89 Other specified abnormal findings of blood chemistry; N18.32 Chronic kidney disease, stage 3b; N31.9 Neuromuscular dysfunction of bladder, unspecified; H54.7 Unspecified visual loss; H52.223 Regular astigmatism, bilateral; H52.03 Hypermetropia, bilateral; E78.00 Pure hypercholesterolemia, unspecified; I10 Essential (primary) hypertension; J45.909 Unspecified asthma, uncomplicated; R32 Unspecified urinary incontinence; R33.9 Retention of urine, unspecified; F41.9 Anxiety disorder, unspecified; F32.A Depression, unspecified; E10.22 Type 1 diabetes mellitus with diabetic chronic kidney disease; E10.40 Type 1 diabetes mellitus with diabetic neuropathy, unspecified; Z86.19 Personal history of other infectious and parasitic diseases; S42.34 Spiral fracture of shaft of humerus; Z93.59 Other cystostomy status; Z79.4 Long term (current) use of insulin; Z79.899 Other long term (current) drug therapy; F17.210 Nicotine dependence, cigarettes, uncomplicated; Z20.822 Contact with and (suspected) exposure to COVID-19; B96.89 Other specified bacterial agents as the cause of diseases classified elsewhere
CPT/HCPCS: 36415; 80048; 80053; 80069; 81001; 83605; 85025; 86140; 87040; 87077; 87086; 87088; 87186; 96361; 96365; 96366; 96372; 96374; 96375; 96376; 99219; 99232; 99238; 99284; 99285-25; A9270-GY; G0378; J0696; J1650; J1815; J1815-GY; J3480; J3490; J7030; U0002

== ENCOUNTER 2022-03-31 13:39 | Emergency (ER) | payer MEDICAID ==
[2022-03-31] MEDS ORDERED: Sodium Chloride 0.9% 10 ML Syringe FLUSH PRN (14:22)
[2022-03-31] MEDS ORDERED: Ciprofloxacin in D5W 400 MG in Premix Bag 1 BAG IV STA ×2 (14:57)
[2022-03-31] MEDS ORDERED: Sodium Chloride 0.9% 1,000 ML IV SCH ×2 (15:00→18:30)
[2022-03-31 15:22] LABS: ESTIMATED GFR 19 mL/min (>60)
[2022-03-31] MEDS ORDERED: Glucagon,Human Recombinant 1 MG Vial IM PRN (15:42)
[2022-03-31] MEDS ORDERED: 50% Dextrose in Water 50 ML Syringe IVPUSH PRN (15:42)
[2022-03-31] MEDS ORDERED: Insulin Lispro 100 Unit/ML 3 ML KwikPen SUBCUT STA (15:42)
[2022-03-31] MEDS ORDERED: Insulin Lispro 100 Unit/ML 3 ML KwikPen SUBCUT ONE (15:54)
[2022-03-31] MEDS: Ondansetron 4 MG/2 ML SDV IVPUSH ONE ×2 (16:29→16:33)
[2022-03-31 17:44] LABS: BASE EXCESS VENOUS,POC 0 mmol/L (-2 - 3+); PCO2 VENOUS,POC 43 mmHg (41-51); PH VENOUS,POC 7.37 pH Units (7.32-7.43)
[2022-03-31] MEDS ORDERED: Ondansetron 4 MG/2 ML SDV IVPUSH STA (17:53)
[2022-03-31 17:57] LABS: ESTIMATED GFR 17 mL/min (>60)
== END 2022-03-31 19:05 ==
LOC: FB.ED 13:39
DX: T83.511A Infection and inflammatory reaction due to indwelling urethral catheter, initial encounter (principal); R73.9 Hyperglycemia, unspecified; E11.22 Type 2 diabetes mellitus with diabetic chronic kidney disease; E86.0 Dehydration; N17.9 Acute kidney failure, unspecified; E87.1 Hypo-osmolality and hyponatremia; I10 Essential (primary) hypertension; E10.9 Type 1 diabetes mellitus without complications; Z79.899 Other long term (current) drug therapy; Z79.4 Long term (current) use of insulin
CPT/HCPCS: 36415; 71045; 80048; 80053; 81001; 83605; 85025; 86140; 87040; 87086; 87088; 87186; 96361; 96365; 96375; 96376; 99285; J0744; J1815; J2405; J7030

== ENCOUNTER 2022-08-18 10:26 | Inpatient (IN) | payer MEDICAID ==
[2022-08-18] MEDS ORDERED: Ondansetron 4 MG/2 ML SDV IVPUSH ONE (10:35)
[2022-08-18] MEDS ORDERED: Sodium Chloride 0.9% 10 ML Syringe FLUSH PRN (10:37)
[2022-08-18] MEDS ORDERED: Sodium Chloride 0.9% 1,000 ML IV SCH ×2 (10:45→12:06)
[2022-08-18 11:10] LABS: ESTIMATED GFR 13 mL/min (>60)
[2022-08-18] MEDS ORDERED: Ciprofloxacin in D5W 400 MG in Premix Bag 1 BAG IV ONE ×2 (12:52)
[2022-08-18 13:25] LABS: CORONAVIRUS COVID-19 NAA POSITIVE (NEGATIVE)
[2022-08-18] MEDS ORDERED: Acetaminophen 325 MG Tab PO PRN (14:17)
[2022-08-18] MEDS ORDERED: 50% Dextrose in Water 50 ML Syringe IVPUSH PRN (15:39)
[2022-08-18] MEDS ORDERED: Glucagon,Human Recombinant 1 MG Vial IM PRN (15:39)
[2022-08-18] MEDS ORDERED: Insulin Lispro 100 Unit/ML 3 ML KwikPen SUBCUT ONE (16:46)
[2022-08-18] MEDS: Nicotine Polacrilex 2 MG Gum BUCCAL PRN (16:53)
[2022-08-18] MEDS: Nicotine 21 MG/24 Hr Patch TRDERM SCH (16:54)
[2022-08-18] MEDS: Insulin Lispro 100 Unit/ML 3 ML KwikPen SUBCUT SCH (16:58)
[2022-08-18] MEDS: Loperamide 2 MG Cap PO PRN (19:51)
[2022-08-18] MEDS: Amitriptyline 25 MG Tab PO SCH (20:48)
[2022-08-18] MEDS: Ondansetron 4 MG/2 ML SDV IV PRN (21:00)
[2022-08-18] MEDS: Acetaminophen/oxyCODONE 325-5 MG Tab PO PRN (21:01)
[2022-08-18] MEDS: Sodium Chloride 0.9% 1,000 ML IV SCH (21:09)
[2022-08-19] MEDS: Acetaminophen/oxyCODONE 325-5 MG Tab PO PRN ×4 (03:09→21:17)
[2022-08-19] MEDS: Sodium Chloride 0.9% 1,000 ML IV SCH ×3 (05:10→22:18)
[2022-08-19 06:54] LABS: ESTIMATED GFR 15 mL/min (>60)
[2022-08-19] MEDS: Insulin Lispro 100 Unit/ML 3 ML KwikPen SUBCUT SCH ×3 (08:12→17:53)
[2022-08-19] MEDS: Sertraline 100 MG Tab PO SCH (09:07)
[2022-08-19] MEDS: Ondansetron 4 MG/2 ML SDV IV PRN ×3 (09:12→21:17)
[2022-08-19] MEDS: Nicotine Polacrilex 2 MG Gum BUCCAL PRN (11:00)
[2022-08-19] MEDS ORDERED: Ciprofloxacin in D5W 200 ML IV SCH (13:00)
[2022-08-19] MEDS: Nicotine 21 MG/24 Hr Patch TRDERM SCH (15:23)
[2022-08-19] MEDS: Amitriptyline 25 MG Tab PO SCH (21:09)
[2022-08-20] MEDS: Acetaminophen/oxyCODONE 325-5 MG Tab PO PRN (04:05)
[2022-08-20] MEDS: Sodium Chloride 0.9% 1,000 ML IV SCH (06:26)
[2022-08-20 06:48] LABS: ESTIMATED GFR 17 mL/min (>60)
[2022-08-20] MEDS: Insulin Lispro 100 Unit/ML 3 ML KwikPen SUBCUT SCH (08:08)
[2022-08-20] MEDS: Sertraline 100 MG Tab PO SCH (08:08)
[2022-08-20] MEDS: Ondansetron 4 MG/2 ML SDV IV PRN (09:15)
[2022-08-20] MEDS: Loperamide 2 MG Cap PO PRN (10:29)
== END 2022-08-20 11:07 | disposition home or self-care (01) | DRG 699 ==
LOC: FB.ED 10:26 → FB.MS 14:07
PROVIDERS: ADMIT Family Medicine; ATTEND Family Medicine
DX: T83.510A Infection and inflammatory reaction due to cystostomy catheter, initial encounter (principal); E87.1 Hypo-osmolality and hyponatremia; N17.9 Acute kidney failure, unspecified; N30.01 Acute cystitis with hematuria; F32.A Depression, unspecified; F41.9 Anxiety disorder, unspecified; Z51.5 Encounter for palliative care; E10.65 Type 1 diabetes mellitus with hyperglycemia; H54.7 Unspecified visual loss; I12.9 Hypertensive chronic kidney disease with stage 1 through stage 4 chronic kidney disease, or unspecified chronic kidney disease; N18.32 Chronic kidney disease, stage 3b; E78.00 Pure hypercholesterolemia, unspecified; E10.42 Type 1 diabetes mellitus with diabetic polyneuropathy; E10.22 Type 1 diabetes mellitus with diabetic chronic kidney disease; E86.0 Dehydration; K52.9 Noninfective gastroenteritis and colitis, unspecified; N39.498 Other specified urinary incontinence; N31.9 Neuromuscular dysfunction of bladder, unspecified; Z79.899 Other long term (current) drug therapy; Z93.59 Other cystostomy status; Z86.16 Personal history of COVID-19
CPT/HCPCS: 0240U; 36415; 71045; 80048; 80053; 81001; 82947; 83605; 85025; 86140; 87040; 87086; 87088; 93005; 96361; 96365; 96375; 99285-25; A9270-GY; J0744; J1815; J2405; J7030

== ENCOUNTER 2022-11-10 14:09 | Inpatient (IN) | payer MEDICAID ==
[2022-11-10 14:44] LABS: ESTIMATED GFR 11 mL/min (>60)
[2022-11-10] MEDS ORDERED: Morphine 2 MG/ML SYRINGE IVPUSH ONE ×2 (14:55→16:32)
[2022-11-10] MEDS ORDERED: Ondansetron 4 MG/2 ML SDV IVPUSH ONE (14:55)
[2022-11-10] MEDS ORDERED: Sodium Chloride 0.9% 1,000 ML IV SCH (15:00)
[2022-11-10] MEDS ORDERED: Glucagon,Human Recombinant 1 MG Vial IM PRN ×2 (15:40→18:13)
[2022-11-10] MEDS ORDERED: 50% Dextrose in Water 50 ML Syringe IVPUSH PRN ×2 (15:40→18:13)
[2022-11-10] MEDS ORDERED: Insulin Lispro 100 Unit/ML 3 ML KwikPen SUBCUT STA (15:40)
[2022-11-10] MEDS ORDERED: Insulin Lispro 100 Unit/ML 3 ML KwikPen SUBCUT ONE (15:53)
[2022-11-10] MEDS: NS + KCl 20mEq/L 1,000 ML IV SCH (16:39)
[2022-11-10 17:38] LABS: ESTIMATED GFR 11 mL/min (>60)
[2022-11-10] MEDS ORDERED: Ciprofloxacin in D5W 400 MG in Premix Bag 1 BAG IV ONE ×2 (18:08)
[2022-11-10] MEDS ORDERED: Acetaminophen/HYDROcodone 325-5 MG Tab PO PRN (18:13)
[2022-11-10] MEDS: Morphine 2 MG/ML SYRINGE IVPUSH PRN ×2 (19:01→23:10)
[2022-11-10] MEDS: Ondansetron 4 MG/2 ML SDV IV PRN (19:13)
[2022-11-10] MEDS: Insulin Lispro 100 Unit/ML 3 ML KwikPen SUBCUT SCH (21:52)
[2022-11-10] MEDS: Enoxaparin 30 MG/0.3 ML Syringe SUBCUT SCH (21:53)
[2022-11-11] MEDS: Ondansetron 4 MG/2 ML SDV IV PRN ×5 (00:10→22:09)
[2022-11-11] MEDS: NS + KCl 20mEq/L 1,000 ML IV SCH ×3 (00:16→17:35)
[2022-11-11] MEDS: Morphine 2 MG/ML SYRINGE IVPUSH PRN ×5 (03:20→22:09)
[2022-11-11] MEDS ORDERED: Ciprofloxacin in D5W 400 MG in Premix Bag 1 BAG IV SCH ×2 (06:00)
[2022-11-11 06:33] LABS: ESTIMATED GFR 13 mL/min (>60)
[2022-11-11] MEDS ORDERED: 50% Dextrose in Water 50 ML Syringe IVPUSH PRN (09:24)
[2022-11-11] MEDS ORDERED: Glucagon,Human Recombinant 1 MG Vial IM PRN (09:24)
[2022-11-11] MEDS ORDERED: Ondansetron 4 MG Tab.DIS PO PRN (09:24)
[2022-11-11] MEDS ORDERED: hydrOXYzine HCl 25 MG Tab PO PRN (09:24)
[2022-11-11] MEDS ORDERED: Loperamide 2 MG Cap PO PRN (09:24)
[2022-11-11] MEDS ORDERED: Potassium Chloride 20 MEQ Tab.ER PO ONE (09:27)
[2022-11-11] MEDS ORDERED: Nicotine Polacrilex 2 MG Gum BUCCAL PRN (10:19)
[2022-11-11] MEDS: Sodium Bicarbonate 650 MG Tab PO SCH ×2 (10:29→20:45)
[2022-11-11] MEDS: Sertraline 100 MG Tab PO SCH (10:30)
[2022-11-11] MEDS: Oxybutynin 5 MG Tab.ER PO SCH (10:30)
[2022-11-11] MEDS: Insulin Lispro 100 Unit/ML 3 ML KwikPen SUBCUT SCH ×6 (10:30→20:41)
[2022-11-11] MEDS: Insulin Glargine,Human Rec. Analog 100 Units/ML 3 ML Pen SUBCUT SCH (10:33)
[2022-11-11] MEDS ORDERED: Insulin Glargine,Human Rec. Analog 100 Units/ML 3 ML Pen SUBCUT ONE (10:33)
[2022-11-11] MEDS: Nicotine 21 MG/24 Hr Patch TRDERM SCH (10:35)
[2022-11-11] MEDS: Sodium Chloride 0.9% 10 ML Syringe FLUSH PRN ×2 (13:37→18:09)
[2022-11-11] MEDS: Ciprofloxacin in D5W 100 ML IV SCH (17:35)
[2022-11-11] MEDS: Enoxaparin 30 MG/0.3 ML Syringe SUBCUT SCH (20:44)
[2022-11-11] MEDS: Amitriptyline 25 MG Tab PO SCH (20:44)
[2022-11-12] MEDS: Ondansetron 4 MG/2 ML SDV IV PRN ×2 (02:18→06:14)
[2022-11-12] MEDS: Morphine 2 MG/ML SYRINGE IVPUSH PRN ×2 (02:18→06:14)
[2022-11-12] MEDS: NS + KCl 20mEq/L 1,000 ML IV SCH ×2 (02:28→08:55)
[2022-11-12] MEDS: Ciprofloxacin in D5W 100 ML IV SCH ×2 (06:11→17:27)
[2022-11-12 06:25] LABS: ESTIMATED GFR 15 mL/min (>60)
[2022-11-12] MEDS: Insulin Glargine,Human Rec. Analog 100 Units/ML 3 ML Pen SUBCUT SCH (08:36)
[2022-11-12] MEDS: Insulin Lispro 100 Unit/ML 3 ML KwikPen SUBCUT SCH ×7 (08:36→20:43)
[2022-11-12] MEDS: Nicotine 21 MG/24 Hr Patch TRDERM SCH (08:37)
[2022-11-12] MEDS: Sodium Bicarbonate 650 MG Tab PO SCH ×2 (08:38→20:47)
[2022-11-12] MEDS: Oxybutynin 5 MG Tab.ER PO SCH (08:38)
[2022-11-12] MEDS: Sertraline 100 MG Tab PO SCH (08:39)
[2022-11-12] MEDS: NICOTINE PATCH TRDERM SCH (08:39)
[2022-11-12] MEDS ORDERED: Acetaminophen 325 MG Tab PO PRN (09:46)
[2022-11-12] MEDS: Sodium Chloride 0.9% 1,000 ML IV SCH ×2 (10:20→19:50)
[2022-11-12] MEDS: Lidocaine 4% 1 each Patch TOP PRN (10:21)
[2022-11-12] MEDS: Acetaminophen/HYDROcodone 325-5 MG Tab PO PRN ×3 (10:21→22:24)
[2022-11-12] MEDS: Cyclobenzaprine 10 MG Tab PO PRN ×2 (10:21→22:24)
[2022-11-12] MEDS: Metoclopramide 10 MG/2 ML SDV IVPUSH PRN (10:22)
[2022-11-12] MEDS: Amitriptyline 25 MG Tab PO SCH (20:47)
[2022-11-12] MEDS: Enoxaparin 30 MG/0.3 ML Syringe SUBCUT SCH (20:47)
[2022-11-13] MEDS: Acetaminophen/HYDROcodone 325-5 MG Tab PO PRN ×2 (04:26→10:26)
[2022-11-13] MEDS: Sodium Chloride 0.9% 1,000 ML IV SCH (05:42)
[2022-11-13 07:14] LABS: ESTIMATED GFR 16 mL/min (>60)
[2022-11-13] MEDS: Ciprofloxacin in D5W 100 ML IV SCH (09:05)
[2022-11-13] MEDS: Nicotine 21 MG/24 Hr Patch TRDERM SCH (09:07)
[2022-11-13] MEDS: Sodium Bicarbonate 650 MG Tab PO SCH (09:08)
[2022-11-13] MEDS: Oxybutynin 5 MG Tab.ER PO SCH (09:08)
[2022-11-13] MEDS: Sertraline 100 MG Tab PO SCH (09:08)
[2022-11-13] MEDS: Insulin Lispro 100 Unit/ML 3 ML KwikPen SUBCUT SCH ×2 (09:09)
[2022-11-13] MEDS: Insulin Glargine,Human Rec. Analog 100 Units/ML 3 ML Pen SUBCUT SCH (09:09)
[2022-11-13] MEDS: NICOTINE PATCH TRDERM SCH (09:10)
[2022-11-13] MEDS: Lidocaine 4% 1 each Patch TOP PRN (09:29)
[2022-11-13] MEDS: Metoclopramide 10 MG/2 ML SDV IVPUSH PRN (10:25)
[2022-11-13] MEDS: Cyclobenzaprine 10 MG Tab PO PRN (10:26)
== END 2022-11-13 11:15 | disposition home or self-care (01) | DRG 699 ==
LOC: FB.ED 14:09 → FB.MS 18:00
PROVIDERS: ADMIT Family Medicine; ATTEND Family Medicine
DX: T83.510A Infection and inflammatory reaction due to cystostomy catheter, initial encounter (principal); E87.1 Hypo-osmolality and hyponatremia; N17.9 Acute kidney failure, unspecified; N30.01 Acute cystitis with hematuria; N18.4 Chronic kidney disease, stage 4 (severe); E86.0 Dehydration; E87.6 Hypokalemia; E11.22 Type 2 diabetes mellitus with diabetic chronic kidney disease; E11.65 Type 2 diabetes mellitus with hyperglycemia; R33.9 Retention of urine, unspecified; W19.XXXA Unspecified fall, initial encounter; E11.43 Type 2 diabetes mellitus with diabetic autonomic (poly)neuropathy; K31.84 Gastroparesis; J45.909 Unspecified asthma, uncomplicated; Y83.8 Other surgical procedures as the cause of abnormal reaction of the patient, or of later complication, without mention of misadventure at the time of the procedure; F32.A Depression, unspecified; F41.9 Anxiety disorder, unspecified; G47.00 Insomnia, unspecified; Y92.009 Unspecified place in unspecified non-institutional (private) residence as the place of occurrence of the external cause; Z79.4 Long term (current) use of insulin; Z91.199 Patient's noncompliance with other medical treatment and regimen due to unspecified reason; Z98.890 Other specified postprocedural states; Z79.899 Other long term (current) drug therapy
CPT/HCPCS: 36415; 72072; 72100; 73502-LT; 80048; 80053; 81001; 82150; 82947; 83605; 83690; 83735; 84484; 85025; 86140; 87086; 87088; 87186; 93005; 99223; 99232; 99238; 99285; A9270-GY; J0744; J1650; J1815; J1815-GY; J2270; J2405; J2765; J3480; J3490; J7030

== ENCOUNTER 2023-01-08 14:44 | Emergency (ER) | payer MEDICAID ==
[2023-01-08] MEDS ORDERED: Metoclopramide 10 MG/2 ML SDV IVPUSH ONE (16:13)
[2023-01-08] MEDS ORDERED: diphenhydrAMINE 50 MG/ML SDV IVPUSH ONE (16:13)
[2023-01-08] MEDS ORDERED: Sodium Chloride 0.9% 1,000 ML IV SCH (16:15)
[2023-01-08 17:01] LABS: A/G RATIO 0.7; ALANINE AMINOTRANSFERASE,ALT 8 U/L (12-36); ALBUMIN 3.3 g/dL (3.5-5.2); ALKALINE PHOSPHATASE 135 IU/L (56-112); ASPARTATE AMNIOTRANSFERASE,AST 9 IU/L (5-25); BILIRUBIN TOTAL 0.9 mg/dL (0.1-1.3); BLOOD UREA NITROGEN,BUN 57 mg/dL (7-18); CALCIUM 8.8 mg/dL (8.6-10.2); CARBON DIOXIDE,CO2 28 mmol/L (21-32); ESTIMATED GFR 12 mL/min (>60); GLUCOSE RANDOM 178 mg/dL (80-116); MAGNESIUM 1.9 mg/dL (1.8-2.5); PHOSPHORUS 3.8 mg/dL (2.6-4.6); SODIUM,NA 126 mmol/L (135-145)
[2023-01-08 17:03] LABS: HEMOGLOBIN 10.3 g/dL (12.9-17.7); MEAN CORPUSCULAR HEMOGLOBIN 31.3 pg (27.0-33.3); MEAN CORPUSCULAR HGB CONC 34.2 g/dL (28.7-35.3); MEAN CORPUSCULAR VOLUME 91.5 fL (80.8-98.7); PLATELET COUNT,PLT 303 x10(3)uL (117-477); RED BLOOD CELL COUNT 3.28 x10(6)uL (3.90-5.90); RED CELL DISTRIBUTION WIDTH 12.6 % (12.4-15.0)
[2023-01-08 17:11] LABS: CHLORIDE,CL 86 mmol/L (100-110); POTASSIUM,K 2.8 mmol/L (3.5-5.3)
[2023-01-08 17:12] LABS: CREATININE 5.7 mg/dL (0.70-1.30)
[2023-01-08 17:20] LABS: EOSINOPHILS PERCENT MAN 1 % (0-5); LYMPHOCYTES PERCENT MAN 8 % (13-37); MONOCYTES PERCENT MAN 7 % (4-12); SEG NEUTROPHILS PERCENT MAN 84 % (46-82)
[2023-01-08] MEDS ORDERED: fentaNYL 100 MCG/2 ML SDV IVPUSH ONE (17:45)
[2023-01-08] MEDS ORDERED: Ondansetron 4 MG/2 ML SDV IVPUSH ONE (17:47)
[2023-01-08] MEDS ORDERED: Ertapenem 1 GM in Sodium Chloride 0.9% 50 ML IV ONE (17:53)
[2023-01-08] MEDS ORDERED: NS + KCl 20mEq/L 1,000 ML IV SCH (18:00)
[2023-01-08] MEDS ORDERED: VANCOmycin 2 GM/400 ML 2 GM in Premix Bag 1 BAG IV ONE (19:57)
[2023-01-08] MEDS ORDERED: Acetaminophen/oxyCODONE 325-5 MG Tab PO STA (20:17)
[2023-01-08] MEDS ORDERED: Ondansetron 4 MG Tab.DIS PO ONE (20:18)
== END 2023-01-08 20:52 ==
LOC: FB.ED 14:44
DX: A41.9 Sepsis, unspecified organism (principal); N18.6 End stage renal disease; E10.9 Type 1 diabetes mellitus without complications; F17.210 Nicotine dependence, cigarettes, uncomplicated; Z79.4 Long term (current) use of insulin; Z79.899 Other long term (current) drug therapy; Z86.16 Personal history of COVID-19
CPT/HCPCS: 36415; 71250; 74176; 80053; 83605; 83735; 84100; 85025; 86140; 87040; 96361; 96365; 96375; 99285-25; A9270-GY; J1200; J1335; J2405; J2765; J3010; J3370; J3490; J7030; Q0162

== ENCOUNTER 2023-02-07 13:53 | Emergency (ER) | payer MEDICAID ==
[2023-02-07 15:02] LABS: BASOPHILS ABSOLUTE AUTO 0.1 x10-3/uL (0.0-0.3); BASOPHILS PERCENT AUTO 1.2 % (0.3-3.8); EOSINOPHILS ABSOLUTE AUTO 0.3 x10-3/uL (0.0-0.6); EOSINOPHILS PERCENT AUTO 3.1 % (0.1-6.8); LYMPHOCYTES ABSOLUTE AUTO 1.9 x10-3/uL (0.5-4.5); LYMPHOCYTES PERCENT AUTO 22.3 % (15.8-45.3); MEAN CORPUSCULAR HGB CONC 34.2 g/dL (28.7-35.3); MEAN CORPUSCULAR VOLUME 93.4 fL (80.8-98.7); MEAN PLATELET VOLUME 7.3 fL (6.7-11.0); MONOCYTES ABSOLUTE AUTO 0.4 x10-3/uL (0.0-1.2); MONOCYTES PERCENT AUTO 4.8 % (5.5-15.2); NEUTROPHILS ABSOLUTE AUTO 5.9 x10-3/uL (1.7-6.9); NEUTROPHILS PERCENT AUTO 68.6 % (40.3-71.8); PLATELET COUNT,PLT 362 x10(3)uL (117-477); RED BLOOD CELL COUNT 3.75 x10(6)uL (3.90-5.90); RED CELL DISTRIBUTION WIDTH 12.7 % (12.4-15.0); WHITE BLOOD CELL COUNT,WBC 8.6 x10-3/uL (3.2-10.1)
[2023-02-07 15:16] LABS: A/G RATIO 0.8; ALANINE AMINOTRANSFERASE,ALT 16 U/L (12-36); ALBUMIN 3.8 g/dL (3.5-5.2); ALKALINE PHOSPHATASE 142 IU/L (56-112); ASPARTATE AMNIOTRANSFERASE,AST 13 IU/L (5-25); BILIRUBIN TOTAL 0.5 mg/dL (0.1-1.3); BLOOD UREA NITROGEN,BUN 60 mg/dL (7-18); BUN/CREATININE RATIO 8.7 (9-20); CALCIUM 8.4 mg/dL (8.6-10.2); CARBON DIOXIDE,CO2 29 mmol/L (21-32); EST CRCL DRUG DOSING (CG) 14.24 mL/min; ESTIMATED GFR 10 mL/min (>60); GLUCOSE RANDOM 234 mg/dL (80-116); POTASSIUM,K 3.1 mmol/L (3.5-5.3); PROTEIN TOTAL,TP 8.4 g/dL (6.0-8.0); SODIUM,NA 129 mmol/L (135-145)
[2023-02-07 15:29] LABS: CHLORIDE,CL 87 mmol/L (100-110); CREATININE 6.9 mg/dL (0.70-1.30)
[2023-02-07] MEDS ORDERED: Potassium Chloride 20 MEQ Tab.ER PO ONE (15:33)
[2023-02-07 15:54] LABS: APPEARANCE,URINE TURBID (CLEAR); BILIRUBIN,URINE NEGATIVE (NEGATIVE); COLOR,URINE YELLOW (YELLOW); GLUCOSE,URINE 100 mg/dL (NORMAL); KETONES,URINE NEGATIVE (NEGATIVE); LEUKOCYTE ESTERASE,URINE LARGE (NEGATIVE); NITRITE,URINE NEGATIVE (NEGATIVE); OCCULT BLOOD,URINE LARGE (NEGATIVE); PROTEIN,URINE 100 mg/dL (NEGATIVE); RBC,URINE PACKED (0-5); UROBILINOGEN,URINE NORMAL (NEGATIVE); WBC,URINE PACKED (0-5)
[2023-02-07] MEDS ORDERED: Sodium Chloride 0.9% 1,000 ML IV ONE (16:23)
[2023-02-07] MEDS ORDERED: Morphine 2 MG/ML SYRINGE IVPUSH ONE ×2 (16:24→19:20)
[2023-02-07] MEDS ORDERED: cefTRIAXone 2 GM Vial IVPUSH ONE (19:28)
== END 2023-02-07 20:30 | disposition home or self-care (01) ==
LOC: FB.ED 13:53
DX: T83.511S Infection and inflammatory reaction due to indwelling urethral catheter, sequela (principal); E87.1 Hypo-osmolality and hyponatremia; E87.6 Hypokalemia; J45.909 Unspecified asthma, uncomplicated; E10.40 Type 1 diabetes mellitus with diabetic neuropathy, unspecified; E10.22 Type 1 diabetes mellitus with diabetic chronic kidney disease; N18.9 Chronic kidney disease, unspecified; Z79.4 Long term (current) use of insulin; Z86.16 Personal history of COVID-19
CPT/HCPCS: 36415; 80053; 81001; 83605; 83735; 85025; 86140; 87040; 87086; 87088; 87186; 96361; 96374; 96375; 96376; 99284; A9270; J0696; J2270; J7030

== ENCOUNTER 2023-03-17 21:21 | Emergency (ER) | payer MEDICAID ==
[2023-03-17] MEDS ORDERED: Potassium Chloride 10 MEQ in Premix Bag 1 BAG IV ONE ×6 (21:32→22:16)
[2023-03-17] MEDS ORDERED: Ondansetron 4 MG/2 ML SDV IVPUSH ONE (21:33)
[2023-03-17 21:47] LABS: BASOPHILS ABSOLUTE AUTO 0.1 x10-3/uL (0.0-0.3); BASOPHILS PERCENT AUTO 1.1 % (0.3-3.8); EOSINOPHILS ABSOLUTE AUTO 0.4 x10-3/uL (0.0-0.6); EOSINOPHILS PERCENT AUTO 3.5 % (0.1-6.8); HEMATOCRIT 32.6 % (38.3-50.1); HEMOGLOBIN 11.3 g/dL (12.9-17.7); LYMPHOCYTES ABSOLUTE AUTO 2.6 x10-3/uL (0.5-4.5); LYMPHOCYTES PERCENT AUTO 23.4 % (15.8-45.3); MEAN CORPUSCULAR HEMOGLOBIN 31.7 pg (27.0-33.3); MEAN CORPUSCULAR HGB CONC 34.6 g/dL (28.7-35.3); MEAN CORPUSCULAR VOLUME 91.5 fL (80.8-98.7); MEAN PLATELET VOLUME 6.6 fL (6.7-11.0); MONOCYTES ABSOLUTE AUTO 0.7 x10-3/uL (0.0-1.2); MONOCYTES PERCENT AUTO 6.1 % (5.5-15.2); NEUTROPHILS ABSOLUTE AUTO 7.4 x10-3/uL (1.7-6.9); NEUTROPHILS PERCENT AUTO 65.9 % (40.3-71.8); PLATELET COUNT,PLT 471 x10(3)uL (117-477); RED BLOOD CELL COUNT 3.56 x10(6)uL (3.90-5.90); RED CELL DISTRIBUTION WIDTH 13.6 % (12.4-15.0); WHITE BLOOD CELL COUNT,WBC 11.3 x10-3/uL (3.2-10.1)
[2023-03-17 21:53] LABS: BLOOD UREA NITROGEN,BUN 61 mg/dL (7-18); BUN/CREATININE RATIO 9.1 (9-20); CALCIUM 8.3 mg/dL (8.6-10.2); CARBON DIOXIDE,CO2 30 mmol/L (21-32); CHLORIDE,CL 93 mmol/L (100-110); ESTIMATED GFR 10 mL/min (>60); GLUCOSE RANDOM 225 mg/dL (80-116); SODIUM,NA 133 mmol/L (135-145)
[2023-03-17 21:55] LABS: CREATININE 6.7 mg/dL (0.70-1.30); POTASSIUM,K 2.7 mmol/L (3.5-5.3)
[2023-03-17 21:56] LABS: MAGNESIUM 3.2 mg/dL (1.8-2.5)
[2023-03-17] MEDS ORDERED: Sodium Chloride 0.9% 1,000 ML IV SCH (22:15)
[2023-03-17] MEDS ORDERED: Morphine 2 MG/ML SYRINGE IVPUSH STA (22:43)
[2023-03-18 02:34] LABS: BLOOD UREA NITROGEN,BUN 57 mg/dL (7-18); BUN/CREATININE RATIO 8.9 (9-20); CALCIUM 7.4 mg/dL (8.6-10.2); CARBON DIOXIDE,CO2 28 mmol/L (21-32); CHLORIDE,CL 95 mmol/L (100-110); EST CRCL DRUG DOSING (CG) 15.36 mL/min; ESTIMATED GFR 11 mL/min (>60); GLUCOSE RANDOM 277 mg/dL (80-116); MAGNESIUM 2.8 mg/dL (1.8-2.5); POTASSIUM,K 3.8 mmol/L (3.5-5.3); SODIUM,NA 131 mmol/L (135-145)
[2023-03-18 02:36] LABS: CREATININE 6.4 mg/dL (0.70-1.30)
== END 2023-03-18 02:20 | disposition home or self-care (01) ==
LOC: FB.ED 21:21
DX: E86.0 Dehydration (principal); E10.22 Type 1 diabetes mellitus with diabetic chronic kidney disease; E10.40 Type 1 diabetes mellitus with diabetic neuropathy, unspecified; N18.6 End stage renal disease; E87.6 Hypokalemia; E87.1 Hypo-osmolality and hyponatremia; K21.9 Gastro-esophageal reflux disease without esophagitis; E83.42 Hypomagnesemia; J45.909 Unspecified asthma, uncomplicated; Z86.16 Personal history of COVID-19
CPT/HCPCS: 36415; 80048; 83735; 85025; 96365; 96366; 96375; 99283; 99283-25; J2270; J2405; J3480; J7030

== ENCOUNTER 2023-05-09 19:15 | Inpatient (IN) | payer MEDICAID ==
[2023-05-09] MEDS ORDERED: Prochlorperazine 10 MG/2 ML SDV IVPUSH ONE (19:38)
[2023-05-09] MEDS ORDERED: diphenhydrAMINE 50 MG/ML SDV IVPUSH ONE (19:38)
[2023-05-09] MEDS ORDERED: Sodium Chloride 0.9% 500 ML IV ONE ×2 (19:38→23:53)
[2023-05-09 19:56] LABS: HEMATOCRIT 27.2 % (38.3-50.1); HEMOGLOBIN 9.2 g/dL (12.9-17.7); MEAN CORPUSCULAR HEMOGLOBIN 31.2 pg (27.0-33.3); MEAN CORPUSCULAR HGB CONC 33.9 g/dL (28.7-35.3); MEAN CORPUSCULAR VOLUME 92.2 fL (80.8-98.7); MEAN PLATELET VOLUME 6.7 fL (6.7-11.0); PLATELET COUNT,PLT 332 x10(3)uL (117-477); RED BLOOD CELL COUNT 2.94 x10(6)uL (3.90-5.90); RED CELL DISTRIBUTION WIDTH 13.9 % (12.4-15.0); WHITE BLOOD CELL COUNT,WBC 16.4 x10-3/uL (3.2-10.1)
[2023-05-09 20:06] LABS: A/G RATIO 0.8; ALANINE AMINOTRANSFERASE,ALT 25 U/L (12-36); ALBUMIN 2.8 g/dL (3.5-5.2); ALKALINE PHOSPHATASE 103 IU/L (56-112); ASPARTATE AMNIOTRANSFERASE,AST 18 IU/L (5-25); BILIRUBIN TOTAL 0.3 mg/dL (0.1-1.3); BLOOD UREA NITROGEN,BUN 72 mg/dL (7-18); BUN/CREATININE RATIO 11.8 (9-20); CALCIUM 7.4 mg/dL (8.6-10.2); CARBON DIOXIDE,CO2 23 mmol/L (21-32); CHLORIDE,CL 95 mmol/L (100-110); ESTIMATED GFR 11 mL/min (>60); GLUCOSE RANDOM 252 mg/dL (80-116); MAGNESIUM 1.6 mg/dL (1.8-2.5); POTASSIUM,K 3.6 mmol/L (3.5-5.3); PROTEIN TOTAL,TP 6.5 g/dL (6.0-8.0); SODIUM,NA 131 mmol/L (135-145)
[2023-05-09 20:07] LABS: C-REACTIVE PROTEIN 1.19 mg/dL (<0.33); CREATININE 6.1 mg/dL (0.70-1.30); TROPONIN I 7.5 pg/mL (4.0-60.3)
[2023-05-09 20:08] LABS: LYMPHOCYTES PERCENT MAN 2 % (13-37); MONOCYTES PERCENT MAN 2 % (4-12); SEG NEUTROPHILS PERCENT MAN 96 % (46-82)
[2023-05-09 20:19] LABS: APPEARANCE,URINE CLOUDY (CLEAR); BILIRUBIN,URINE NEGATIVE (NEGATIVE); COLOR,URINE RED (YELLOW); GLUCOSE,URINE 250 mg/dL (NORMAL); KETONES,URINE NEGATIVE (NEGATIVE); LEUKOCYTE ESTERASE,URINE LARGE (NEGATIVE); NITRITE,URINE NEGATIVE (NEGATIVE); OCCULT BLOOD,URINE LARGE (NEGATIVE); PROTEIN,URINE 500 mg/dL (NEGATIVE); RBC,URINE PACKED (0-5); UROBILINOGEN,URINE NORMAL (NEGATIVE); WBC,URINE PACKED (0-5)
[2023-05-09] MEDS: Sodium Chloride 0.9% 1,000 ML IV ONE ×2 (21:33→21:35)
[2023-05-09] MEDS ORDERED: Piperacillin/Tazobactam 3.375 GM in Sodium Chloride 0.9% 50 ML IV ONE (22:03)
[2023-05-09] MEDS ORDERED: VANCOmycin 1.5 GM/300 ML 300 ML IV ONE (22:30)
[2023-05-10] MEDS ORDERED: Sodium Chloride 0.9% 1,000 ML IV SCH ×2 (00:30→09:00)
[2023-05-10] MEDS ORDERED: Ondansetron 4 MG/2 ML SDV IV PRN (00:52)
[2023-05-10] MEDS ORDERED: Sodium Chloride 0.9% 1,000 ML IV ONE (01:05)
[2023-05-10] MEDS ORDERED: Nicotine Polacrilex 2 MG Gum CHEW PRN (01:48)
[2023-05-10] MEDS: Piperacillin/Tazobactam 2.25 GM in Sodium Chloride 0.9% 50 ML IV SCH ×4 (05:41→22:20)
[2023-05-10 06:44] LABS: HEMOGLOBIN 7.5 g/dL (12.9-17.7); MEAN CORPUSCULAR HEMOGLOBIN 31.7 pg (27.0-33.3); MEAN CORPUSCULAR HGB CONC 33.9 g/dL (28.7-35.3); MEAN CORPUSCULAR VOLUME 93.4 fL (80.8-98.7); MEAN PLATELET VOLUME 6.8 fL (6.7-11.0); PLATELET COUNT,PLT 276 x10(3)uL (117-477); RED BLOOD CELL COUNT 2.36 x10(6)uL (3.90-5.90); RED CELL DISTRIBUTION WIDTH 14.1 % (12.4-15.0); WHITE BLOOD CELL COUNT,WBC 13.5 x10-3/uL (3.2-10.1)
[2023-05-10 06:51] LABS: BLOOD UREA NITROGEN,BUN 68 mg/dL (7-18); BUN/CREATININE RATIO 11.5 (9-20); CALCIUM 6.9 mg/dL (8.6-10.2); CARBON DIOXIDE,CO2 21 mmol/L (21-32); CHLORIDE,CL 100 mmol/L (100-110); EST CRCL DRUG DOSING (CG) 18.26 mL/min; ESTIMATED GFR 12 mL/min (>60); GLUCOSE RANDOM 186 mg/dL (80-116); POTASSIUM,K 3.6 mmol/L (3.5-5.3); SODIUM,NA 134 mmol/L (135-145)
[2023-05-10 06:52] LABS: CREATININE 5.9 mg/dL (0.70-1.30)
[2023-05-10 07:11] LABS: BAND PERCENT MAN 2 % (0-6); LYMPHOCYTES PERCENT MAN 8 % (13-37); MONOCYTES PERCENT MAN 3 % (4-12); SEG NEUTROPHILS PERCENT MAN 87 % (46-82)
[2023-05-10] MEDS: Acetaminophen 325 MG Tab PO PRN ×3 (07:16→22:23)
[2023-05-10] MEDS ORDERED: SUMAtriptan 6 MG/0.5 ML SDV SUBCUT ONE (09:05)
[2023-05-10] MEDS ORDERED: Glucagon,Human Recombinant 1 MG Vial IM PRN ×2 (09:11→09:22)
[2023-05-10] MEDS ORDERED: 50% Dextrose in Water 50 ML Syringe IVPUSH PRN ×2 (09:11→09:22)
[2023-05-10] MEDS ORDERED: Cyclobenzaprine 10 MG Tab PO PRN (09:22)
[2023-05-10] MEDS ORDERED: Loperamide 2 MG Cap PO PRN (09:22)
[2023-05-10] MEDS ORDERED: Morphine 2 MG/ML SYRINGE IVPUSH PRN (09:29)
[2023-05-10] MEDS: Saccharomyces Boulardii (Probiotic) 250 MG Cap PO SCH ×2 (10:01→20:44)
[2023-05-10] MEDS: Lidocaine 4% 1 each Patch TOP SCH (10:04)
[2023-05-10] MEDS: Vancomycin 125 MG Cap PO SCH ×4 (10:04→20:44)
[2023-05-10] MEDS: Insulin Glargine,Human Rec. Analog 100 Units/ML 3 ML Pen SUBCUT SCH (10:05)
[2023-05-10] MEDS: Insulin Lispro 100 Unit/ML 3 ML KwikPen SUBCUT SCH ×2 (12:08→17:49)
[2023-05-10] MEDS: Metoclopramide 5 MG Tab PO SCH ×2 (12:10→17:50)
[2023-05-10] MEDS: Sodium Chloride 0.9% 10 ML Syringe FLUSH PRN ×2 (16:26→22:44)
[2023-05-10] MEDS: Sodium Bicarbonate 650 MG Tab PO SCH (20:44)
[2023-05-10] MEDS ORDERED: Amitriptyline 25 MG Tab PO SCH (21:00)
[2023-05-10] MEDS ORDERED: Mirtazapine 15 MG Tab PO SCH (21:00)
[2023-05-11] MEDS: Piperacillin/Tazobactam 2.25 GM in Sodium Chloride 0.9% 50 ML IV SCH (04:39)
[2023-05-11] MEDS ORDERED: Pantoprazole 40 MG Tab.CR PO SCH (06:00)
[2023-05-11 06:48] LABS: BASOPHILS ABSOLUTE AUTO 0.1 x10-3/uL (0.0-0.3); BASOPHILS PERCENT AUTO 1.5 % (0.3-3.8); EOSINOPHILS ABSOLUTE AUTO 0.5 x10-3/uL (0.0-0.6); EOSINOPHILS PERCENT AUTO 6.5 % (0.1-6.8); HEMATOCRIT 22.3 % (38.3-50.1); HEMOGLOBIN 7.5 g/dL (12.9-17.7); LYMPHOCYTES ABSOLUTE AUTO 1.3 x10-3/uL (0.5-4.5); LYMPHOCYTES PERCENT AUTO 15.6 % (15.8-45.3); MEAN CORPUSCULAR HEMOGLOBIN 31.6 pg (27.0-33.3); MEAN CORPUSCULAR HGB CONC 33.7 g/dL (28.7-35.3); MEAN CORPUSCULAR VOLUME 93.7 fL (80.8-98.7); MONOCYTES ABSOLUTE AUTO 0.9 x10-3/uL (0.0-1.2); MONOCYTES PERCENT AUTO 10.4 % (5.5-15.2); NEUTROPHILS ABSOLUTE AUTO 5.6 x10-3/uL (1.7-6.9); PLATELET COUNT,PLT 250 x10(3)uL (117-477); RED BLOOD CELL COUNT 2.38 x10(6)uL (3.90-5.90); WHITE BLOOD CELL COUNT,WBC 8.4 x10-3/uL (3.2-10.1)
[2023-05-11 06:53] LABS: BLOOD UREA NITROGEN,BUN 65 mg/dL (7-18); CALCIUM 7.3 mg/dL (8.6-10.2); CARBON DIOXIDE,CO2 18 mmol/L (21-32); CHLORIDE,CL 104 mmol/L (100-110); ESTIMATED GFR 12 mL/min (>60); GLUCOSE RANDOM 195 mg/dL (80-116); POTASSIUM,K 4.3 mmol/L (3.5-5.3); SODIUM,NA 134 mmol/L (135-145)
[2023-05-11 07:06] LABS: CREATININE 5.9 mg/dL (0.70-1.30); EST CRCL DRUG DOSING (CG) 18.26 mL/min
[2023-05-11] MEDS: Insulin Lispro 100 Unit/ML 3 ML KwikPen SUBCUT SCH (07:39)
[2023-05-11] MEDS: Metoclopramide 5 MG Tab PO SCH (07:40)
[2023-05-11 08:11] LABS: HEMOGLOBIN A1C 10.2 % (<5.7)
[2023-05-11] MEDS: Lidocaine 4% 1 each Patch TOP SCH (08:44)
[2023-05-11] MEDS: Sodium Bicarbonate 650 MG Tab PO SCH (08:44)
[2023-05-11] MEDS: Saccharomyces Boulardii (Probiotic) 250 MG Cap PO SCH (08:44)
[2023-05-11] MEDS: Vancomycin 125 MG Cap PO SCH (08:44)
[2023-05-11] MEDS: Insulin Glargine,Human Rec. Analog 100 Units/ML 3 ML Pen SUBCUT SCH (08:44)
[2023-05-11] MEDS ORDERED: Oxybutynin 5 MG Tab.ER PO SCH (09:00)
[2023-05-11] MEDS ORDERED: Potassium Chloride 20 MEQ Tab.ER PO SCH (09:00)
[2023-05-11] MEDS: Acetaminophen 325 MG Tab PO PRN (09:31)
[2023-05-12] MEDS ORDERED: Vancomycin 125 MG Cap PO SCH (09:00)
[2023-05-15] MEDS ORDERED: Ergocalciferol (Vitamin D2) 1.25 MG Cap PO SCH (09:00)
== END 2023-05-11 09:35 | disposition home or self-care (01) | DRG 698 ==
LOC: FB.ED 19:15 → FB.MS 05-10 00:39
PROVIDERS: ADMIT Emergency Medicine; ATTEND Family Medicine
DX: T83.511A Infection and inflammatory reaction due to indwelling urethral catheter, initial encounter (principal); N18.6 End stage renal disease; A04.72 Enterocolitis due to Clostridium difficile, not specified as recurrent; N17.9 Acute kidney failure, unspecified; N13.6 Pyonephrosis; N39.0 Urinary tract infection, site not specified; N13.30 Unspecified hydronephrosis; R31.0 Gross hematuria; E10.65 Type 1 diabetes mellitus with hyperglycemia; F41.9 Anxiety disorder, unspecified; E86.0 Dehydration; G43.909 Migraine, unspecified, not intractable, without status migrainosus; F32.A Depression, unspecified; E10.22 Type 1 diabetes mellitus with diabetic chronic kidney disease; Z99.2 Dependence on renal dialysis; D63.1 Anemia in chronic kidney disease; J45.909 Unspecified asthma, uncomplicated; N31.9 Neuromuscular dysfunction of bladder, unspecified; Z98.890 Other specified postprocedural states; F17.210 Nicotine dependence, cigarettes, uncomplicated; Z79.4 Long term (current) use of insulin; Z79.899 Other long term (current) drug therapy; Z86.718 Personal history of other venous thrombosis and embolism; Y84.6 Urinary catheterization as the cause of abnormal reaction of the patient, or of later complication, without mention of misadventure at the time of the procedure
CPT/HCPCS: 36415; 74176; 80048; 80053; 80202; 81001; 83036; 83605; 83735; 84484; 85025; 86140; 86850; 86900; 86901; 87040; 87086; 87088; 87186; 93005; 93010; 96361; 96365; 96366; 96368; 96375; 99223; 99239; 99285; 99285-25; A9270-GY; J0780; J1200; J1815; J1815-GY; J2270; J2543; J3030; J3370; J3490; J7030; J7040

== ENCOUNTER 2023-07-03 14:06 | Inpatient (IN) | payer MEDICAID ==
[2023-07-03] MEDS ORDERED: Sodium Chloride 0.9% 10 ML Syringe FLUSH PRN (14:47)
[2023-07-03] MEDS ORDERED: Ondansetron 4 MG/2 ML SDV IVPUSH ONE (15:06)
[2023-07-03] MEDS: Sodium Chloride 0.9% 1,000 ML IV SCH ×2 (15:14→21:22)
[2023-07-03 15:42] LABS: BASOPHILS ABSOLUTE AUTO 0.1 x10-3/uL (0.0-0.3); BASOPHILS PERCENT AUTO 0.8 % (0.3-3.8); EOSINOPHILS ABSOLUTE AUTO 0.1 x10-3/uL (0.0-0.6); EOSINOPHILS PERCENT AUTO 1.3 % (0.1-6.8); HEMATOCRIT 34.1 % (38.3-50.1); HEMOGLOBIN 11.7 g/dL (12.9-17.7); LYMPHOCYTES ABSOLUTE AUTO 1.2 x10-3/uL (0.5-4.5); LYMPHOCYTES PERCENT AUTO 13.8 % (15.8-45.3); MEAN CORPUSCULAR HEMOGLOBIN 31.6 pg (27.0-33.3); MEAN CORPUSCULAR HGB CONC 34.3 g/dL (28.7-35.3); MEAN CORPUSCULAR VOLUME 92.1 fL (80.8-98.7); MEAN PLATELET VOLUME 8.9 fL (6.7-11.0); MONOCYTES ABSOLUTE AUTO 0.5 x10-3/uL (0.0-1.2); MONOCYTES PERCENT AUTO 6.2 % (5.5-15.2); NEUTROPHILS ABSOLUTE AUTO 6.7 x10-3/uL (1.7-6.9); NEUTROPHILS PERCENT AUTO 77.9 % (40.3-71.8); PLATELET COUNT,PLT 270 x10(3)uL (117-477); RED BLOOD CELL COUNT 3.71 x10(6)uL (3.90-5.90); WHITE BLOOD CELL COUNT,WBC 8.6 x10-3/uL (3.2-10.1)
[2023-07-03 16:00] LABS: A/G RATIO 0.8; ALANINE AMINOTRANSFERASE,ALT 25 U/L (12-36); ALBUMIN 3.8 g/dL (3.5-5.2); ALKALINE PHOSPHATASE 130 IU/L (56-112); ASPARTATE AMNIOTRANSFERASE,AST 14 IU/L (5-25); BILIRUBIN TOTAL 0.9 mg/dL (0.1-1.3); BLOOD UREA NITROGEN,BUN 61 mg/dL (7-18); BUN/CREATININE RATIO 9.4 (9-20); CALCIUM 8.6 mg/dL (8.6-10.2); CARBON DIOXIDE,CO2 30 mmol/L (21-32); ESTIMATED GFR 11 mL/min (>60); PROTEIN TOTAL,TP 8.6 g/dL (6.0-8.0); SODIUM,NA 124 mmol/L (135-145)
[2023-07-03 16:08] LABS: CHLORIDE,CL 81 mmol/L (100-110); GLUCOSE RANDOM 712 mg/dL (80-116); POTASSIUM,K 2.7 mmol/L (3.5-5.3)
[2023-07-03 16:09] LABS: CREATININE 6.5 mg/dL (0.70-1.30); LACTIC ACID 2.6 mmol/L (0.4-2.0)
[2023-07-03] MEDS ORDERED: VANCOmycin 1 GM/200 ML 1 GM in Premix Bag 1 BAG IV ONE (16:23)
[2023-07-03] MEDS ORDERED: Naloxone 0.4 MG/ML SDV IVPUSH PRN (16:25)
[2023-07-03] MEDS ORDERED: HYDROmorphone 2 MG/ML SDV IVPUSH ONE (16:25)
[2023-07-03] MEDS ORDERED: VANCOmycin 1 GM/200 ML 200 ML ONE (16:32)
[2023-07-03] MEDS: cefTRIAXone 1 GM Vial IVPUSH SCH (16:35)
[2023-07-03 18:09] LABS: APPEARANCE,URINE CLOUDY (CLEAR); BACTERIA,URINE MODERATE (NS); BILIRUBIN,URINE NEGATIVE (NEGATIVE); COLOR,URINE YELLOW (YELLOW); GLUCOSE,URINE >1000 mg/dL (NORMAL); KETONES,URINE NEGATIVE (NEGATIVE); LEUKOCYTE ESTERASE,URINE LARGE (NEGATIVE); NITRITE,URINE NEGATIVE (NEGATIVE); OCCULT BLOOD,URINE LARGE (NEGATIVE); PROTEIN,URINE 30 mg/dL (NEGATIVE); SQUAMOUS EPITHELIAL CELLS,UR FEW (NS,R,O); UROBILINOGEN,URINE NORMAL (NEGATIVE); WBC,URINE 40-50 (0-5)
[2023-07-03] MEDS ORDERED: 50% Dextrose in Water 50 ML Syringe IVPUSH PRN ×3 (18:31→19:12)
[2023-07-03] MEDS ORDERED: Glucagon,Human Recombinant 1 MG Vial IM PRN ×3 (18:31→19:12)
[2023-07-03] MEDS ORDERED: Insulin Lispro 100 Unit/ML 3 ML KwikPen SUBCUT STA (18:31)
[2023-07-03] MEDS ORDERED: Insulin Lispro 100 Unit/ML 3 ML KwikPen SUBCUT ONE (18:40)
[2023-07-03] MEDS ORDERED: Sennosides/Docusate Sodium 50-8.6 MG Tab PO PRN (19:03)
[2023-07-03] MEDS ORDERED: Acetaminophen 325 MG Tab PO PRN (19:03)
[2023-07-03] MEDS ORDERED: Loperamide 2 MG Cap PO PRN (19:07)
[2023-07-03] MEDS ORDERED: Enoxaparin 40 MG/0.4 ML Syringe SUBCUT SCH (19:15)
[2023-07-03] MEDS ORDERED: Insulin Lispro 100 Unit/ML 3 ML KwikPen SUBCUT SCH ×2 (19:15→21:00)
[2023-07-03 19:21] LABS: HEMOGLOBIN A1C 12.9 % (<5.7)
[2023-07-03] MEDS: Ondansetron 4 MG/2 ML SDV IV PRN (21:25)
[2023-07-03] MEDS: Amitriptyline 25 MG Tab PO SCH (21:54)
[2023-07-03] MEDS: Sodium Bicarbonate 650 MG Tab PO SCH (21:54)
[2023-07-03] MEDS: Cyclobenzaprine 10 MG Tab PO PRN (22:36)
[2023-07-03] MEDS ORDERED: Acetaminophen/oxyCODONE 325-5 MG Tab PO PRN (22:59)
[2023-07-04] MEDS ORDERED: 50% Dextrose in Water 50 ML Syringe IVPUSH PRN (00:29)
[2023-07-04] MEDS ORDERED: Glucagon,Human Recombinant 1 MG Vial IM PRN (00:29)
[2023-07-04] MEDS ORDERED: Potassium Chloride 20 MEQ Tab.ER PO ONE ×2 (03:28→05:30)
[2023-07-04] MEDS ORDERED: NS + KCl 20mEq/L 1,000 ML IV STA (03:43)
[2023-07-04] MEDS ORDERED: NS + KCl 20mEq/L 1,000 ML IV SCH (03:45)
[2023-07-04 07:31] LABS: BASOPHILS ABSOLUTE AUTO 0.1 x10-3/uL (0.0-0.3); EOSINOPHILS ABSOLUTE AUTO 0.2 x10-3/uL (0.0-0.6); EOSINOPHILS PERCENT AUTO 2.5 % (0.1-6.8); HEMATOCRIT 27.1 % (38.3-50.1); HEMOGLOBIN 9.2 g/dL (12.9-17.7); LYMPHOCYTES ABSOLUTE AUTO 1.2 x10-3/uL (0.5-4.5); LYMPHOCYTES PERCENT AUTO 14.4 % (15.8-45.3); MEAN CORPUSCULAR HEMOGLOBIN 30.7 pg (27.0-33.3); MEAN CORPUSCULAR HGB CONC 34.1 g/dL (28.7-35.3); MEAN CORPUSCULAR VOLUME 90.1 fL (80.8-98.7); MEAN PLATELET VOLUME 8.4 fL (6.7-11.0); MONOCYTES ABSOLUTE AUTO 0.8 x10-3/uL (0.0-1.2); MONOCYTES PERCENT AUTO 9.1 % (5.5-15.2); NEUTROPHILS ABSOLUTE AUTO 6.1 x10-3/uL (1.7-6.9); PLATELET COUNT,PLT 214 x10(3)uL (117-477); RED BLOOD CELL COUNT 3.01 x10(6)uL (3.90-5.90); RED CELL DISTRIBUTION WIDTH 12.9 % (12.4-15.0); WHITE BLOOD CELL COUNT,WBC 8.4 x10-3/uL (3.2-10.1)
[2023-07-04 07:38] LABS: A/G RATIO 0.8; ALANINE AMINOTRANSFERASE,ALT 17 U/L (12-36); ALBUMIN 3.1 g/dL (3.5-5.2); ALKALINE PHOSPHATASE 96 IU/L (56-112); ASPARTATE AMNIOTRANSFERASE,AST 10 IU/L (5-25); BILIRUBIN TOTAL 0.6 mg/dL (0.1-1.3); BLOOD UREA NITROGEN,BUN 57 mg/dL (7-18); BUN/CREATININE RATIO 10.4 (9-20); CARBON DIOXIDE,CO2 31 mmol/L (21-32); EST CRCL DRUG DOSING (CG) 16.42 mL/min; ESTIMATED GFR 13 mL/min (>60); GLUCOSE RANDOM 223 mg/dL (80-116); POTASSIUM,K 3.1 mmol/L (3.5-5.3); SODIUM,NA 129 mmol/L (135-145)
[2023-07-04 07:42] LABS: CHLORIDE,CL 89 mmol/L (100-110)
[2023-07-04 07:43] LABS: CREATININE 5.5 mg/dL (0.70-1.30)
[2023-07-04] MEDS ORDERED: Metoclopramide 5 MG Tab PO SCH (08:00)
[2023-07-04] MEDS: Pantoprazole 40 MG Tab.CR PO SCH (08:09)
[2023-07-04] MEDS ORDERED: Insulin Glargine,Human Rec. Analog 100 Units/ML 3 ML Pen SUBCUT SCH (09:00)
[2023-07-04] MEDS ORDERED: Insulin Lispro 100 Unit/ML 3 ML KwikPen SUBCUT SCH (09:00)
[2023-07-04] MEDS ORDERED: Torsemide 20 MG Tab PO SCH (09:00)
[2023-07-04] MEDS: Sodium Bicarbonate 650 MG Tab PO SCH ×2 (09:16→21:18)
[2023-07-04] MEDS: Acetaminophen/oxyCODONE 325-5 MG Tab PO PRN ×2 (09:16→18:09)
[2023-07-04] MEDS: Oxybutynin 5 MG Tab.ER PO SCH (09:16)
[2023-07-04] MEDS: Potassium Chloride 20 MEQ Tab.ER PO SCH (09:16)
[2023-07-04] MEDS ORDERED: Metoclopramide 5 MG Tab PO PRN (09:49)
[2023-07-04] MEDS: Lidocaine 4% 1 each Patch TOP SCH (11:19)
[2023-07-04] MEDS: Insulin Lispro 100 Unit/ML 3 ML KwikPen SUBCUT SCH ×3 (11:55→21:19)
[2023-07-04] MEDS: Ondansetron 4 MG/2 ML SDV IV PRN ×2 (12:09→19:11)
[2023-07-04] MEDS ORDERED: Sodium Chloride 0.9% 1,000 ML IV SCH (13:43)
[2023-07-04] MEDS: NS + KCl 20mEq/L 1,000 ML IV SCH (13:57)
[2023-07-04] MEDS: Cyclobenzaprine 10 MG Tab PO PRN (15:00)
[2023-07-04] MEDS: cefTRIAXone 1 GM Vial IVPUSH SCH (17:17)
[2023-07-04] MEDS: Amitriptyline 25 MG Tab PO SCH (21:17)
[2023-07-05] MEDS: NS + KCl 20mEq/L 1,000 ML IV SCH (00:27)
[2023-07-05] MEDS: Cyclobenzaprine 10 MG Tab PO PRN (01:46)
[2023-07-05 07:24] LABS: BASOPHILS ABSOLUTE AUTO 0.1 x10-3/uL (0.0-0.3); BASOPHILS PERCENT AUTO 1.9 % (0.3-3.8); EOSINOPHILS ABSOLUTE AUTO 0.4 x10-3/uL (0.0-0.6); EOSINOPHILS PERCENT AUTO 6.2 % (0.1-6.8); HEMATOCRIT 28.4 % (38.3-50.1); HEMOGLOBIN 9.8 g/dL (12.9-17.7); LYMPHOCYTES ABSOLUTE AUTO 1.6 x10-3/uL (0.5-4.5); LYMPHOCYTES PERCENT AUTO 23.1 % (15.8-45.3); MEAN CORPUSCULAR HEMOGLOBIN 31.3 pg (27.0-33.3); MEAN CORPUSCULAR HGB CONC 34.3 g/dL (28.7-35.3); MEAN CORPUSCULAR VOLUME 91.3 fL (80.8-98.7); MEAN PLATELET VOLUME 8.4 fL (6.7-11.0); MONOCYTES ABSOLUTE AUTO 0.4 x10-3/uL (0.0-1.2); MONOCYTES PERCENT AUTO 6.5 % (5.5-15.2); NEUTROPHILS ABSOLUTE AUTO 4.3 x10-3/uL (1.7-6.9); NEUTROPHILS PERCENT AUTO 62.3 % (40.3-71.8); PLATELET COUNT,PLT 224 x10(3)uL (117-477); RED BLOOD CELL COUNT 3.11 x10(6)uL (3.90-5.90); RED CELL DISTRIBUTION WIDTH 13.2 % (12.4-15.0); WHITE BLOOD CELL COUNT,WBC 6.9 x10-3/uL (3.2-10.1)
[2023-07-05 07:34] LABS: A/G RATIO 0.8; ALANINE AMINOTRANSFERASE,ALT 21 U/L (12-36); ALBUMIN 2.9 g/dL (3.5-5.2); ALKALINE PHOSPHATASE 109 IU/L (56-112); ASPARTATE AMNIOTRANSFERASE,AST 14 IU/L (5-25); BILIRUBIN TOTAL 0.4 mg/dL (0.1-1.3); BLOOD UREA NITROGEN,BUN 49 mg/dL (7-18); BUN/CREATININE RATIO 9.6 (9-20); CARBON DIOXIDE,CO2 24 mmol/L (21-32); CHLORIDE,CL 97 mmol/L (100-110); EST CRCL DRUG DOSING (CG) 18.27 mL/min; ESTIMATED GFR 14 mL/min (>60); GLUCOSE RANDOM 250 mg/dL (80-116); POTASSIUM,K 3.6 mmol/L (3.5-5.3); PROTEIN TOTAL,TP 6.5 g/dL (6.0-8.0); SODIUM,NA 133 mmol/L (135-145)
[2023-07-05 07:36] LABS: CREATININE 5.1 mg/dL (0.70-1.30)
[2023-07-05] MEDS: Pantoprazole 40 MG Tab.CR PO SCH (07:50)
[2023-07-05] MEDS: Insulin Lispro 100 Unit/ML 3 ML KwikPen SUBCUT SCH (07:51)
[2023-07-05] MEDS: Acetaminophen/oxyCODONE 325-5 MG Tab PO PRN (07:55)
[2023-07-05] MEDS: Lidocaine 4% 1 each Patch TOP SCH (08:24)
[2023-07-05] MEDS: Potassium Chloride 20 MEQ Tab.ER PO SCH (08:27)
[2023-07-05] MEDS: Sodium Bicarbonate 650 MG Tab PO SCH (08:27)
[2023-07-05] MEDS: Oxybutynin 5 MG Tab.ER PO SCH (08:27)
== END 2023-07-05 10:10 | disposition home or self-care (01) | DRG 698 ==
LOC: FB.ED 14:06 → FB.MS 19:17
PROVIDERS: ADMIT Emergency Medicine; ATTEND Family Medicine
DX: T83.511A Infection and inflammatory reaction due to indwelling urethral catheter, initial encounter (principal); N18.6 End stage renal disease; N17.9 Acute kidney failure, unspecified; A41.9 Sepsis, unspecified organism; E87.1 Hypo-osmolality and hyponatremia; I12.0 Hypertensive chronic kidney disease with stage 5 chronic kidney disease or end stage renal disease; N39.0 Urinary tract infection, site not specified; E87.6 Hypokalemia; E86.0 Dehydration; G89.29 Other chronic pain; E10.22 Type 1 diabetes mellitus with diabetic chronic kidney disease; E10.65 Type 1 diabetes mellitus with hyperglycemia; D63.1 Anemia in chronic kidney disease; M54.9 Dorsalgia, unspecified; N31.9 Neuromuscular dysfunction of bladder, unspecified; B96.89 Other specified bacterial agents as the cause of diseases classified elsewhere; E10.40 Type 1 diabetes mellitus with diabetic neuropathy, unspecified; J45.909 Unspecified asthma, uncomplicated; F41.9 Anxiety disorder, unspecified; F32.A Depression, unspecified; Z96.0 Presence of urogenital implants; F17.210 Nicotine dependence, cigarettes, uncomplicated; Z98.890 Other specified postprocedural states; F12.10 Cannabis abuse, uncomplicated; Z79.01 Long term (current) use of anticoagulants; Z79.4 Long term (current) use of insulin; Y92.89 Other specified places as the place of occurrence of the external cause; Z79.899 Other long term (current) drug therapy; Z86.718 Personal history of other venous thrombosis and embolism; Y84.6 Urinary catheterization as the cause of abnormal reaction of the patient, or of later complication, without mention of misadventure at the time of the procedure
CPT/HCPCS: 36415; 71045; 80053; 81001; 82150; 82947; 83036; 83605; 83690; 83735; 85025; 86140; 87040; 87086; 87088; 87186; 96361; 96365; 96366; 96375; 99223; 99239; 99285; 99285-25; A9270-GY; J0696; J1170; J1815; J1815-GY; J2405; J3370; J3480; J3490; J7030

== ENCOUNTER 2023-07-15 16:23 | Inpatient (IN) | payer MEDICAID ==
[2023-07-15] MEDS: Sodium Chloride 0.9% 10 ML Syringe FLUSH PRN ×3 (16:40→23:36)
[2023-07-15 17:01] LABS: BASOPHILS ABSOLUTE AUTO 0.1 x10-3/uL (0.0-0.3); BASOPHILS PERCENT AUTO 1.5 % (0.3-3.8); EOSINOPHILS ABSOLUTE AUTO 0.3 x10-3/uL (0.0-0.6); EOSINOPHILS PERCENT AUTO 3.3 % (0.1-6.8); HEMATOCRIT 30.1 % (38.3-50.1); HEMOGLOBIN 10.6 g/dL (12.9-17.7); LYMPHOCYTES ABSOLUTE AUTO 1.8 x10-3/uL (0.5-4.5); LYMPHOCYTES PERCENT AUTO 19.5 % (15.8-45.3); MEAN CORPUSCULAR HEMOGLOBIN 31.8 pg (27.0-33.3); MEAN CORPUSCULAR HGB CONC 35.2 g/dL (28.7-35.3); MEAN CORPUSCULAR VOLUME 90.2 fL (80.8-98.7); MEAN PLATELET VOLUME 7.5 fL (6.7-11.0); MONOCYTES ABSOLUTE AUTO 0.4 x10-3/uL (0.0-1.2); MONOCYTES PERCENT AUTO 4.5 % (5.5-15.2); NEUTROPHILS ABSOLUTE AUTO 6.5 x10-3/uL (1.7-6.9); NEUTROPHILS PERCENT AUTO 71.2 % (40.3-71.8); PLATELET COUNT,PLT 372 x10(3)uL (117-477); RED BLOOD CELL COUNT 3.34 x10(6)uL (3.90-5.90); RED CELL DISTRIBUTION WIDTH 12.9 % (12.4-15.0); WHITE BLOOD CELL COUNT,WBC 9.2 x10-3/uL (3.2-10.1)
[2023-07-15 17:05] LABS: A/G RATIO 0.8; ALANINE AMINOTRANSFERASE,ALT 17 U/L (12-36); ALBUMIN 3.5 g/dL (3.5-5.2); ALKALINE PHOSPHATASE 146 IU/L (56-112); ASPARTATE AMNIOTRANSFERASE,AST 14 IU/L (5-25); BILIRUBIN TOTAL 0.6 mg/dL (0.1-1.3); BLOOD UREA NITROGEN,BUN 51 mg/dL (7-18); BUN/CREATININE RATIO 9.4 (9-20); CALCIUM 8.2 mg/dL (8.6-10.2); CARBON DIOXIDE,CO2 26 mmol/L (21-32); ESTIMATED GFR 13 mL/min (>60); POTASSIUM,K 3.1 mmol/L (3.5-5.3); SODIUM,NA 121 mmol/L (135-145)
[2023-07-15 17:06] LABS: LACTIC ACID 1.1 mmol/L (0.4-2.0)
[2023-07-15 17:08] LABS: CHLORIDE,CL 84 mmol/L (100-110); GLUCOSE RANDOM 629 mg/dL (80-116)
[2023-07-15 17:09] LABS: CREATININE 5.4 mg/dL (0.70-1.30); EST CRCL DRUG DOSING (CG) 18.02 mL/min
[2023-07-15] MEDS ORDERED: Ondansetron 4 MG/2 ML SDV IVPUSH ONE (17:12)
[2023-07-15] MEDS ORDERED: Sodium Chloride 0.9% 1,000 ML IV SCH (17:15)
[2023-07-15 17:19] LABS: BASE EXCESS VENOUS,POC -5 mmol/L (-2 - 3+); PCO2 VENOUS,POC 38 mmHg (41-51); PH VENOUS,POC 7.34 pH Units (7.32-7.43)
[2023-07-15] MEDS ORDERED: 50% Dextrose in Water 50 ML Syringe IVPUSH PRN ×3 (17:20→19:03)
[2023-07-15] MEDS ORDERED: Glucagon,Human Recombinant 1 MG Vial IM PRN ×3 (17:20→19:03)
[2023-07-15] MEDS ORDERED: Insulin Lispro 100 Unit/ML 3 ML KwikPen SUBCUT STA (17:20)
[2023-07-15] MEDS ORDERED: Insulin Lispro 100 Unit/ML 3 ML KwikPen SUBCUT ONE (17:32)
[2023-07-15 17:59] LABS: BILIRUBIN,URINE NEGATIVE (NEGATIVE); GLUCOSE,URINE >1000 mg/dL (NORMAL); KETONES,URINE NEGATIVE (NEGATIVE); LEUKOCYTE ESTERASE,URINE LARGE (NEGATIVE); NITRITE,URINE NEGATIVE (NEGATIVE); OCCULT BLOOD,URINE MODERATE (NEGATIVE); PROTEIN,URINE 30 mg/dL (NEGATIVE); UROBILINOGEN,URINE NORMAL (NEGATIVE)
[2023-07-15 18:05] LABS: APPEARANCE,URINE CLOUDY (CLEAR); BACTERIA,URINE MANY (NS); COLOR,URINE YELLOW (YELLOW); RBC,URINE 30-40 (0-5); SQUAMOUS EPITHELIAL CELLS,UR FEW (NS,R,O); WBC,URINE PACKED (0-5); YEAST,URINE MANY (NS)
[2023-07-15] MEDS ORDERED: Acetaminophen/HYDROcodone 325-5 MG Tab PO PRN (18:49)
[2023-07-15] MEDS ORDERED: Insulin Lispro 100 Unit/ML 3 ML KwikPen SUBCUT PRN (19:00)
[2023-07-15] MEDS ORDERED: Loperamide 2 MG Cap PO PRN (19:03)
[2023-07-15] MEDS: cefTRIAXone 1 GM Vial IVPUSH SCH (19:09)
[2023-07-15] MEDS: NS + KCl 20mEq/L 1,000 ML IV SCH (19:09)
[2023-07-15] MEDS: Sodium Bicarbonate 650 MG Tab PO SCH (20:14)
[2023-07-15] MEDS: Sulfamethoxazole/Trimethoprim 800-160 MG Tab PO SCH (20:14)
[2023-07-15] MEDS ORDERED: REMOVE LIDOCAINE TRDERM SCH (21:00)
[2023-07-15] MEDS: Insulin Lispro 100 Unit/ML 3 ML KwikPen SUBCUT SCH (21:09)
[2023-07-15] MEDS: Ondansetron 4 MG/2 ML SDV IV PRN (23:32)
[2023-07-16] MEDS: NS + KCl 20mEq/L 1,000 ML IV SCH ×3 (03:27→20:36)
[2023-07-16 06:59] LABS: BASOPHILS ABSOLUTE AUTO 0.1 x10-3/uL (0.0-0.3); BASOPHILS PERCENT AUTO 0.9 % (0.3-3.8); EOSINOPHILS ABSOLUTE AUTO 0.5 x10-3/uL (0.0-0.6); EOSINOPHILS PERCENT AUTO 5.1 % (0.1-6.8); HEMATOCRIT 25.2 % (38.3-50.1); LYMPHOCYTES ABSOLUTE AUTO 1.7 x10-3/uL (0.5-4.5); LYMPHOCYTES PERCENT AUTO 17.6 % (15.8-45.3); MEAN CORPUSCULAR HEMOGLOBIN 31.4 pg (27.0-33.3); MEAN CORPUSCULAR HGB CONC 35.5 g/dL (28.7-35.3); MEAN CORPUSCULAR VOLUME 88.5 fL (80.8-98.7); MEAN PLATELET VOLUME 7.3 fL (6.7-11.0); MONOCYTES ABSOLUTE AUTO 0.6 x10-3/uL (0.0-1.2); MONOCYTES PERCENT AUTO 6.2 % (5.5-15.2); NEUTROPHILS PERCENT AUTO 70.2 % (40.3-71.8); PLATELET COUNT,PLT 325 x10(3)uL (117-477); RED BLOOD CELL COUNT 2.85 x10(6)uL (3.90-5.90); RED CELL DISTRIBUTION WIDTH 12.9 % (12.4-15.0)
[2023-07-16 07:10] LABS: A/G RATIO 0.8; ALANINE AMINOTRANSFERASE,ALT 17 U/L (12-36); ALBUMIN 2.7 g/dL (3.5-5.2); ALKALINE PHOSPHATASE 94 IU/L (56-112); ASPARTATE AMNIOTRANSFERASE,AST 10 IU/L (5-25); BILIRUBIN TOTAL 0.4 mg/dL (0.1-1.3); BLOOD UREA NITROGEN,BUN 50 mg/dL (7-18); BUN/CREATININE RATIO 10.9 (9-20); CALCIUM 7.5 mg/dL (8.6-10.2); CARBON DIOXIDE,CO2 24 mmol/L (21-32); CHLORIDE,CL 97 mmol/L (100-110); EST CRCL DRUG DOSING (CG) 19.52 mL/min; ESTIMATED GFR 16 mL/min (>60); GLUCOSE RANDOM 197 mg/dL (80-116); PROTEIN TOTAL,TP 6.3 g/dL (6.0-8.0); SODIUM,NA 131 mmol/L (135-145)
[2023-07-16 07:16] LABS: CREATININE 4.6 mg/dL (0.70-1.30)
[2023-07-16] MEDS: Insulin Lispro 100 Unit/ML 3 ML KwikPen SUBCUT SCH ×4 (07:26→20:37)
[2023-07-16] MEDS ORDERED: Insulin Glargine,Human Rec. Analog 100 Units/ML 3 ML Pen SUBCUT ONE (08:49)
[2023-07-16] MEDS: Sulfamethoxazole/Trimethoprim 800-160 MG Tab PO SCH (08:51)
[2023-07-16] MEDS: Oxybutynin 5 MG Tab.ER PO SCH (08:51)
[2023-07-16] MEDS: Sodium Bicarbonate 650 MG Tab PO SCH ×2 (08:52→20:34)
[2023-07-16] MEDS: Lidocaine 4% 1 each Patch TOP SCH (08:55)
[2023-07-16] MEDS: Insulin Glargine,Human Rec. Analog 100 Units/ML 3 ML Pen SUBCUT SCH (08:57)
[2023-07-16] MEDS: Ondansetron 4 MG/2 ML SDV IV PRN (09:02)
[2023-07-16] MEDS ORDERED: Acetaminophen/HYDROcodone 325-5 MG Tab PO PRN (09:15)
[2023-07-16] MEDS ORDERED: Sulfamethoxazole/Trimethoprim 400-80 MG Tab PO SCH ×2 (09:30→21:00)
[2023-07-16] MEDS: cefTRIAXone 1 GM Vial IVPUSH SCH (18:54)
[2023-07-16] MEDS: REMOVE LIDOCAINE TRDERM SCH (20:41)
[2023-07-16] MEDS ORDERED: Sulfamethoxazole/Trimethoprim 800-160 MG Tab PO SCH (21:00)
[2023-07-16] MEDS: Cyclobenzaprine 10 MG Tab PO PRN (21:20)
[2023-07-17] MEDS: Sodium Chloride 0.9% 10 ML Syringe FLUSH PRN ×2 (00:21→00:26)
[2023-07-17] MEDS: Ondansetron 4 MG/2 ML SDV IV PRN (00:21)
[2023-07-17] MEDS: NS + KCl 20mEq/L 1,000 ML IV SCH (04:40)
[2023-07-17 06:54] LABS: BASOPHILS ABSOLUTE AUTO 0.1 x10-3/uL (0.0-0.3); BASOPHILS PERCENT AUTO 1.2 % (0.3-3.8); EOSINOPHILS ABSOLUTE AUTO 0.6 x10-3/uL (0.0-0.6); EOSINOPHILS PERCENT AUTO 7.1 % (0.1-6.8); HEMATOCRIT 24.1 % (38.3-50.1); HEMOGLOBIN 8.6 g/dL (12.9-17.7); LYMPHOCYTES ABSOLUTE AUTO 2.4 x10-3/uL (0.5-4.5); LYMPHOCYTES PERCENT AUTO 27.7 % (15.8-45.3); MEAN CORPUSCULAR HGB CONC 35.6 g/dL (28.7-35.3); MEAN CORPUSCULAR VOLUME 90.1 fL (80.8-98.7); MEAN PLATELET VOLUME 7.4 fL (6.7-11.0); MONOCYTES ABSOLUTE AUTO 0.5 x10-3/uL (0.0-1.2); MONOCYTES PERCENT AUTO 6.3 % (5.5-15.2); NEUTROPHILS PERCENT AUTO 57.7 % (40.3-71.8); PLATELET COUNT,PLT 314 x10(3)uL (117-477); RED BLOOD CELL COUNT 2.68 x10(6)uL (3.90-5.90); RED CELL DISTRIBUTION WIDTH 13.2 % (12.4-15.0); WHITE BLOOD CELL COUNT,WBC 8.7 x10-3/uL (3.2-10.1)
[2023-07-17 07:06] LABS: A/G RATIO 0.8; ALANINE AMINOTRANSFERASE,ALT 13 U/L (12-36); ALBUMIN 2.5 g/dL (3.5-5.2); ALKALINE PHOSPHATASE 87 IU/L (56-112); ASPARTATE AMNIOTRANSFERASE,AST 10 IU/L (5-25); BILIRUBIN TOTAL 0.3 mg/dL (0.1-1.3); BLOOD UREA NITROGEN,BUN 44 mg/dL (7-18); BUN/CREATININE RATIO 9.6 (9-20); CALCIUM 7.5 mg/dL (8.6-10.2); CARBON DIOXIDE,CO2 25 mmol/L (21-32); CHLORIDE,CL 101 mmol/L (100-110); EST CRCL DRUG DOSING (CG) 20.23 mL/min; ESTIMATED GFR 16 mL/min (>60); GLUCOSE RANDOM 226 mg/dL (80-116); POTASSIUM,K 4.2 mmol/L (3.5-5.3); PROTEIN TOTAL,TP 5.8 g/dL (6.0-8.0); SODIUM,NA 133 mmol/L (135-145)
[2023-07-17 07:07] LABS: CREATININE 4.6 mg/dL (0.70-1.30)
[2023-07-17] MEDS: Insulin Lispro 100 Unit/ML 3 ML KwikPen SUBCUT SCH ×4 (07:19→20:19)
[2023-07-17] MEDS ORDERED: Sulfamethoxazole/Trimethoprim 400-80 MG Tab PO SCH (09:00)
[2023-07-17] MEDS: Sodium Bicarbonate 650 MG Tab PO SCH ×2 (09:09→20:22)
[2023-07-17] MEDS: Lidocaine 4% 1 each Patch TOP SCH (09:10)
[2023-07-17] MEDS: Oxybutynin 5 MG Tab.ER PO SCH (09:10)
[2023-07-17] MEDS: Insulin Glargine,Human Rec. Analog 100 Units/ML 3 ML Pen SUBCUT SCH (09:20)
[2023-07-17] MEDS: Ciprofloxacin 500 MG Tab PO SCH (09:21)
[2023-07-17] MEDS: Cyclobenzaprine 10 MG Tab PO PRN ×2 (14:59→22:47)
[2023-07-17] MEDS: Nicotine Polacrilex 2 MG Gum CHEW PRN ×3 (18:40→22:47)
[2023-07-17] MEDS: REMOVE LIDOCAINE TRDERM SCH (20:21)
[2023-07-17] MEDS ORDERED: Melatonin 3 MG Tab PO PRN (22:22)
[2023-07-18 07:00] LABS: BLOOD UREA NITROGEN,BUN 42 mg/dL (7-18); BUN/CREATININE RATIO 9.3 (9-20); CALCIUM 7.8 mg/dL (8.6-10.2); CARBON DIOXIDE,CO2 25 mmol/L (21-32); CHLORIDE,CL 96 mmol/L (100-110); EST CRCL DRUG DOSING (CG) 20.68 mL/min; ESTIMATED GFR 16 mL/min (>60); GLUCOSE RANDOM 321 mg/dL (80-116); POTASSIUM,K 4.7 mmol/L (3.5-5.3); SODIUM,NA 128 mmol/L (135-145)
[2023-07-18 07:03] LABS: CREATININE 4.5 mg/dL (0.70-1.30)
[2023-07-18] MEDS: Insulin Lispro 100 Unit/ML 3 ML KwikPen SUBCUT SCH (07:58)
[2023-07-18] MEDS: Ciprofloxacin 500 MG Tab PO SCH (08:45)
[2023-07-18] MEDS: Oxybutynin 5 MG Tab.ER PO SCH (08:45)
[2023-07-18] MEDS: Sodium Bicarbonate 650 MG Tab PO SCH (08:45)
[2023-07-18] MEDS: Insulin Glargine,Human Rec. Analog 100 Units/ML 3 ML Pen SUBCUT SCH (08:46)
[2023-07-18] MEDS: Lidocaine 4% 1 each Patch TOP SCH ×2 (08:47→09:24)
[2023-07-18 09:00] VITALS: BP 122/85; PULSE 104
== END 2023-07-18 09:10 | disposition home or self-care (01) | DRG 637 ==
LOC: FB.ED 16:23 → FB.MS 18:42
PROVIDERS: ADMIT Emergency Medicine; ATTEND Family Medicine
DX: T83.511A Infection and inflammatory reaction due to indwelling urethral catheter, initial encounter (principal); E11.65 Type 2 diabetes mellitus with hyperglycemia; N18.6 End stage renal disease; E87.1 Hypo-osmolality and hyponatremia; I12.0 Hypertensive chronic kidney disease with stage 5 chronic kidney disease or end stage renal disease; E10.22 Type 1 diabetes mellitus with diabetic chronic kidney disease; N18.4 Chronic kidney disease, stage 4 (severe); N39.0 Urinary tract infection, site not specified; E10.65 Type 1 diabetes mellitus with hyperglycemia; N31.9 Neuromuscular dysfunction of bladder, unspecified; Z51.5 Encounter for palliative care; F12.10 Cannabis abuse, uncomplicated; E87.6 Hypokalemia; Z79.899 Other long term (current) drug therapy; Z86.718 Personal history of other venous thrombosis and embolism; R55 Syncope and collapse; Y84.6 Urinary catheterization as the cause of abnormal reaction of the patient, or of later complication, without mention of misadventure at the time of the procedure; E86.0 Dehydration; S30.0XXA Contusion of lower back and pelvis, initial encounter; F41.9 Anxiety disorder, unspecified; F17.210 Nicotine dependence, cigarettes, uncomplicated; D63.1 Anemia in chronic kidney disease; F32.A Depression, unspecified; B96.89 Other specified bacterial agents as the cause of diseases classified elsewhere; K52.9 Noninfective gastroenteritis and colitis, unspecified; Z96.0 Presence of urogenital implants; Z86.16 Personal history of COVID-19; Z79.4 Long term (current) use of insulin; W18.30XA Fall on same level, unspecified, initial encounter; Y92.009 Unspecified place in unspecified non-institutional (private) residence as the place of occurrence of the external cause; Z56.0 Unemployment, unspecified
CPT/HCPCS: 71045; 72100; 80053; 81001; 83605; 85025; 87040 ×2; 87086; 87088 ×2; 87186; 96361; 96374; 99285; J1815 ×2; J2405; J3490; J7030; 36415; 80048; 82947; 97161-GP; 97530-GP; 99223; 99233; 99238; A9270-GY; J0696; J3480

== ENCOUNTER 2023-08-16 18:26 | Emergency (ER) | payer MEDICAID ==
[2023-08-16] MEDS ORDERED: Sodium Chloride 0.9% 10 ML Syringe FLUSH PRN (19:15)
[2023-08-16] MEDS ORDERED: Morphine 4 MG/ML VIAL IVPUSH ONE ×2 (19:15→21:58)
[2023-08-16] MEDS ORDERED: Ondansetron 4 MG/2 ML SDV IVPUSH ONE (19:15)
[2023-08-16] MEDS ORDERED: Naloxone 0.4 MG/ML SDV IVPUSH PRN (19:15)
[2023-08-16 19:55] LABS: BASOPHILS ABSOLUTE AUTO 0.3 x10-3/uL (0.0-0.3); BASOPHILS PERCENT AUTO 2.9 % (0.3-3.8); EOSINOPHILS ABSOLUTE AUTO 0.4 x10-3/uL (0.0-0.6); EOSINOPHILS PERCENT AUTO 3.5 % (0.1-6.8); HEMATOCRIT 26.3 % (38.3-50.1); HEMOGLOBIN 8.8 g/dL (12.9-17.7); LYMPHOCYTES ABSOLUTE AUTO 3.2 x10-3/uL (0.5-4.5); LYMPHOCYTES PERCENT AUTO 30.9 % (15.8-45.3); MEAN CORPUSCULAR HEMOGLOBIN 31.6 pg (27.0-33.3); MEAN CORPUSCULAR HGB CONC 33.3 g/dL (28.7-35.3); MEAN CORPUSCULAR VOLUME 94.7 fL (80.8-98.7); MEAN PLATELET VOLUME 6.7 fL (6.7-11.0); MONOCYTES ABSOLUTE AUTO 0.6 x10-3/uL (0.0-1.2); MONOCYTES PERCENT AUTO 5.4 % (5.5-15.2); NEUTROPHILS PERCENT AUTO 57.3 % (40.3-71.8); PLATELET COUNT,PLT 583 x10(3)uL (117-477); RED BLOOD CELL COUNT 2.78 x10(6)uL (3.90-5.90); RED CELL DISTRIBUTION WIDTH 16.3 % (12.4-15.0); WHITE BLOOD CELL COUNT,WBC 10.5 x10-3/uL (3.2-10.1)
[2023-08-16 20:02] LABS: A/G RATIO 0.6; ALANINE AMINOTRANSFERASE,ALT 27 U/L (12-36); ALBUMIN 3.2 g/dL (3.5-5.2); ALKALINE PHOSPHATASE 116 IU/L (56-112); ASPARTATE AMNIOTRANSFERASE,AST 21 IU/L (5-25); BILIRUBIN TOTAL 0.3 mg/dL (0.1-1.3); BLOOD UREA NITROGEN,BUN 44 mg/dL (7-18); BUN/CREATININE RATIO 8.8 (9-20); CALCIUM 8.6 mg/dL (8.6-10.2); CARBON DIOXIDE,CO2 24 mmol/L (21-32); CHLORIDE,CL 96 mmol/L (100-110); ESTIMATED GFR 14 mL/min (>60); GLUCOSE RANDOM 221 mg/dL (80-116); MAGNESIUM 1.9 mg/dL (1.8-2.5); POTASSIUM,K 5.2 mmol/L (3.5-5.3); PROTEIN TOTAL,TP 8.2 g/dL (6.0-8.0); SODIUM,NA 128 mmol/L (135-145)
[2023-08-16 23:08] LABS: BILIRUBIN,URINE NEGATIVE (NEGATIVE); GLUCOSE,URINE >1000 mg/dL (NORMAL); KETONES,URINE NEGATIVE (NEGATIVE); LEUKOCYTE ESTERASE,URINE LARGE (NEGATIVE); NITRITE,URINE NEGATIVE (NEGATIVE); OCCULT BLOOD,URINE LARGE (NEGATIVE); PROTEIN,URINE 30 mg/dL (NEGATIVE); UROBILINOGEN,URINE NORMAL (NEGATIVE)
[2023-08-16 23:15] LABS: APPEARANCE,URINE CLOUDY (CLEAR); BACTERIA,URINE MODERATE (NS); COLOR,URINE YELLOW (YELLOW); SQUAMOUS EPITHELIAL CELLS,UR OCCASIONAL (NS,R,O); WBC,URINE 75-100 (0-5)
[2023-08-17] MEDS ORDERED: cefTRIAXone 2 GM Vial IVPUSH ONE (00:14)
[2023-08-17] MEDS ORDERED: Levofloxacin 500 MG Tab PO ONE (00:16)
== END 2023-08-17 01:10 | disposition home or self-care (01) ==
LOC: FB.ED 18:26
DX: T83.010A Breakdown (mechanical) of cystostomy catheter, initial encounter (principal); N39.0 Urinary tract infection, site not specified; J45.909 Unspecified asthma, uncomplicated; E10.22 Type 1 diabetes mellitus with diabetic chronic kidney disease; N18.9 Chronic kidney disease, unspecified; E10.40 Type 1 diabetes mellitus with diabetic neuropathy, unspecified; Z72.0 Tobacco use; Z79.899 Other long term (current) drug therapy
CPT/HCPCS: 51705; 74176; 80053; 81001; 83735; 85025; 86140; 87086; 87088; 87186; 96374; 96375; 96376; 99285; A9270; J0696; J2270; J2405

== ENCOUNTER 2023-09-21 18:56 | Emergency (ER) | payer MEDICAID ==
[2023-09-21] MEDS ORDERED: Insulin Lispro 100 Unit/ML 3 ML KwikPen SUBCUT ONE (18:57)
[2023-09-21] MEDS: Sodium Chloride 0.9% 1,000 ML IV SCH (19:55)
[2023-09-21] MEDS: Ondansetron 4 MG/2 ML SDV IVPUSH ONE (19:55)
[2023-09-21 20:07] LABS: BASE EXCESS VENOUS,POC -8 mmol/L (-2 - 3+); PCO2 VENOUS,POC 31 mmHg (41-51); PH VENOUS,POC 7.34 pH Units (7.32-7.43)
[2023-09-21 20:15] LABS: BASOPHILS ABSOLUTE AUTO 0.1 x10-3/uL (0.0-0.3); BASOPHILS PERCENT AUTO 0.5 % (0.3-3.8); EOSINOPHILS ABSOLUTE AUTO 0.3 x10-3/uL (0.0-0.6); EOSINOPHILS PERCENT AUTO 2.2 % (0.1-6.8); HEMATOCRIT 32.3 % (38.3-50.1); LYMPHOCYTES ABSOLUTE AUTO 1.1 x10-3/uL (0.5-4.5); LYMPHOCYTES PERCENT AUTO 7.7 % (15.8-45.3); MEAN CORPUSCULAR HEMOGLOBIN 31.3 pg (27.0-33.3); MEAN CORPUSCULAR HGB CONC 33.9 g/dL (28.7-35.3); MEAN CORPUSCULAR VOLUME 92.2 fL (80.8-98.7); MEAN PLATELET VOLUME 8.4 fL (6.7-11.0); MONOCYTES ABSOLUTE AUTO 0.7 x10-3/uL (0.0-1.2); MONOCYTES PERCENT AUTO 5.2 % (5.5-15.2); NEUTROPHILS ABSOLUTE AUTO 11.5 x10-3/uL (1.7-6.9); NEUTROPHILS PERCENT AUTO 84.4 % (40.3-71.8); PLATELET COUNT,PLT 245 x10(3)uL (117-477); RED BLOOD CELL COUNT 3.51 x10(6)uL (3.90-5.90); RED CELL DISTRIBUTION WIDTH 14.4 % (12.4-15.0); WHITE BLOOD CELL COUNT,WBC 13.7 x10-3/uL (3.2-10.1)
[2023-09-21] MEDS ORDERED: Ketorolac 30 MG/ML SDV IVPUSH ONE (20:16)
[2023-09-21] MEDS ORDERED: diphenhydrAMINE 50 MG/ML SDV IVPUSH ONE (20:16)
[2023-09-21 20:22] LABS: TROPONIN I 4.5 pg/mL (4.0-60.3)
[2023-09-21 20:24] LABS: A/G RATIO 0.8; ALANINE AMINOTRANSFERASE,ALT 16 U/L (12-36); ALBUMIN 3.3 g/dL (3.5-5.2); ALKALINE PHOSPHATASE 119 IU/L (56-112); ASPARTATE AMNIOTRANSFERASE,AST 12 IU/L (5-25); BILIRUBIN TOTAL 0.5 mg/dL (0.1-1.3); BLOOD UREA NITROGEN,BUN 75 mg/dL (7-18); CALCIUM 8.4 mg/dL (8.6-10.2); CARBON DIOXIDE,CO2 19 mmol/L (21-32); GLUCOSE RANDOM 354 mg/dL (80-116); POTASSIUM,K 3.7 mmol/L (3.5-5.3); PROTEIN TOTAL,TP 7.4 g/dL (6.0-8.0); SODIUM,NA 121 mmol/L (135-145)
[2023-09-21 20:46] LABS: ESTIMATED GFR 11 mL/min (>60)
[2023-09-21 20:49] LABS: CREATININE 6.5 mg/dL (0.70-1.30)
[2023-09-21 20:50] LABS: CHLORIDE,CL 87 mmol/L (100-110)
[2023-09-21 20:51] LABS: BUN/CREATININE RATIO 11.5 (9-20)
[2023-09-21 21:07] LABS: APPEARANCE,URINE CLOUDY (CLEAR); BILIRUBIN,URINE NEGATIVE (NEGATIVE); COLOR,URINE ORANGE (YELLOW); GLUCOSE,URINE >1000 mg/dL (NORMAL); KETONES,URINE NEGATIVE (NEGATIVE); LEUKOCYTE ESTERASE,URINE LARGE (NEGATIVE); NITRITE,URINE NEGATIVE (NEGATIVE); OCCULT BLOOD,URINE LARGE (NEGATIVE); PROTEIN,URINE 500 mg/dL (NEGATIVE); RBC,URINE 75-100 (0-5); UROBILINOGEN,URINE NORMAL (NEGATIVE)
[2023-09-21 21:08] LABS: BACTERIA,URINE FEW (NS); SQUAMOUS EPITHELIAL CELLS,UR OCCASIONAL (NS,R,O); YEAST,URINE FEW (NS)
[2023-09-21] MEDS ORDERED: Glucagon,Human Recombinant 1 MG Vial IM PRN (21:19)
[2023-09-21] MEDS ORDERED: 50% Dextrose in Water 50 ML Syringe IVPUSH PRN (21:19)
[2023-09-21] MEDS: Levofloxacin 500 MG Tab PO ONE (21:23)
[2023-09-21] MEDS: Morphine 2 MG/ML SYRINGE IM ONE (21:48)
[2023-09-21] MEDS: Insulin Lispro 100 Unit/ML 3 ML KwikPen SUBCUT ONE (21:49)
== END 2023-09-21 22:05 ==
LOC: FB.ED 18:56
DX: E10.65 Type 1 diabetes mellitus with hyperglycemia (principal); N39.0 Urinary tract infection, site not specified; E86.0 Dehydration; R79.82 Elevated C-reactive protein (CRP); R39.2 Extrarenal uremia; E10.40 Type 1 diabetes mellitus with diabetic neuropathy, unspecified; E11.22 Type 2 diabetes mellitus with diabetic chronic kidney disease; Z86.16 Personal history of COVID-19; Z79.899 Other long term (current) drug therapy; Z79.4 Long term (current) use of insulin
CPT/HCPCS: 36415; 80053; 81001; 83605; 83690; 84484; 85025; 86140; 87040; 87086; 87088; 87186; 96361; 96372; 96374; 99285; 99285-25; A9270-GY; J1815; J2270; J2405; J7030